=== PATIENT | male | born 1960 | race Caucasian/White ===

== ENCOUNTER → 2018-03-27 12:27 | Outpatient (CLI) | payer OTHER, SELFPAY | PROVIDERS: Family Provider Internal Medicine; PCP Internal Medicine | DX: Z23 Encounter for immunization (principal) | CPT/HCPCS: 90471; 90686 ==

== ENCOUNTER → 2019-05-07 16:12 | Outpatient (ROUT) | payer OTHER, SELFPAY ==
[2019-05-07 16:20] LABS: Add Manual Diff / Slide Review NO; Basophils Absolute Auto 100 /uL (0-100); Eosinophils Absolute Auto 300 /uL (0-450); Hematocrit 45.5 % (41-53); Hemoglobin 15.2 g/dL (13.5-17.5); Lymphocytes Absolute Auto 1800 /uL (1100-4500); Lymphocytes Percent Auto 31.5 % (25-40); Mean Corpuscular HGB Conc 33.3 % (30-36); Mean Corpuscular Hemoglobin 29.1 PG (26-34); Mean Corpuscular Volume 87.4 fL (80-100); Monocytes Absolute Auto 500 /uL (0-900); Monocytes Percent Auto 9.6 % (3-14); Neutrophils Absolute Auto 3000 /uL (1500-7000); Neutrophils Percent Auto 51.9 % (50-75); Platelet Count 207 X10^3/uL (150-400); Red Blood Cell Count 5.21 X10^6/uL (4.5-5.9); Red Cell Distribution Width 13.9 % (11.6-14.8); White Blood Cell Count 5.7 X10^3/uL (4.5-11.0)
[2019-05-07 16:38] LABS: Aspartate Aminotransferase 27 IU/L (17-59); BUN Creatinine Ratio 27.1 (6-22); Blood Urea Nitrogen 19 mg/dL (9-20); Calcium 9.2 mg/dL (8.4-10.2); Carbon Dioxide 28 mmol/L (22-32); Chloride 104 mmol/L (98-107); Cholesterol 179 mg/dL (140-199); Estimated Glomerular Filt Rate > 60.0 mL/min (>60); Glucose 89 mg/dL (80-110); HDL Cholesterol 54 mg/dL (40-60); HEMOLYSIS < 15 (0-50); LDL Cholesterol Calculated 112 mg/dL (<100); Potassium 3.9 mmol/L (3.4-5.1); Sodium 140 mmol/L (137-145); Triglycerides 63 mg/dL (35-150)
[2019-05-07 17:07] LABS: Prostate Specific Antigen 0.491 ng/mL (0.10-4.00)
[2019-05-07 17:09] LABS: TSH w/ Reflex to FT4 2.52 uIU/mL (0.47-4.68)
== END ==
PROVIDERS: Family Provider Internal Medicine; PCP Internal Medicine; Visit Provider Internal Medicine
DX: I10 Essential (primary) hypertension (principal); E78.2 Mixed hyperlipidemia; N40.0 Benign prostatic hyperplasia without lower urinary tract symptoms; R00.2 Palpitations
CPT/HCPCS: 80048; 80061; 84153; 84443; 84450; 85025

== ENCOUNTER → 2019-07-31 17:01 | Outpatient (CLI) | payer OTHER, SELFPAY ==
[2019-07-31 17:58] LABS: Magnesium 2.3 mg/dL (1.6-2.3)
[2019-08-06 13:09] LABS: Metanephrine, Free 47 pg/mL (< OR = 57); Normetanephrine, Free 111 pg/mL (< OR = 148)
== END ==
PROVIDERS: Family Provider Internal Medicine; PCP Internal Medicine; Visit Provider Internal Medicine Cardiovascular Disease
DX: R00.2 Palpitations (principal); I49.3 Ventricular premature depolarization; I49.1 Atrial premature depolarization; I10 Essential (primary) hypertension
CPT/HCPCS: 36415; 82088; 83735; 83835

== ENCOUNTER → 2020-04-24 11:39 | Outpatient (CLI) | payer OTHER, SELFPAY ==
[2020-04-25 14:39] LABS: COVID19 Sendout Not Detected (Not Detect)
== END ==
PROVIDERS: Family Provider Internal Medicine; PCP Internal Medicine; Visit Provider Physician Assistant
DX: Z01.812 Encounter for preprocedural laboratory examination (principal)
CPT/HCPCS: 87635

== ENCOUNTER 2020-04-27 12:09 | Day surgery (SDC) | payer OTHER, SELFPAY ==
[2020-04-27] MEDS: SODIUM CHLORIDE 0.9% 1,000 ML 200 ML IV (12:37)
[2020-04-27 12:38] VITALS: BP 145/95; PULSE 61; RESP 17; TEMP 36.8; O2SAT 98; BMI 22.6
--- NOTE | 2020-04-27 12:54 | PM.HP.1 ---
History of Present Illness History of Present Illness Chief complaint: [facility] [place] Patient History Medical History High cholesterol (Acute) Hypertension (Acute) Family & Social History Social History: household members spouse Tobacco & Substance use: Smoking Status Never smoker alcohol intake current alcohol intake frequency a few times a week Substance Use Type does not use Meds Home Medications and Allergies Home Medications Medication Instructions Recorded Confirmed Type aspirin 81 mg PO DAILY 04/27/20 04/27/20 History lisinopril 20 mg PO DAILY 04/27/20 04/27/20 History metoprolol succinate 25 mg PO DAILY 04/27/20 04/27/20 History pravastatin 20 mg PO DAILY 04/27/20 04/27/20 History zolpidem 5 mg PO BEDTIME PRN 04/27/20 04/27/20 History Review of Systems Review of Systems ROS: Yes All systems reviewed with the patient and are negative except as otherwise documented Exam Vital Signs (past 8 hours): - 04/27/20 12:38 Temperature 98.3 F Pulse Rate 61 Respiratory Rate 17 Blood Pressure 145/95 H Pulse Oximetry 98 Oxygen Delivery Method Room Air Narrative Exam Narrative: Awake alert and oriented x3, pupils equal round reactive to light, oropharynx clear, heart regular rate and rhythm, lungs clear to auscultation bilaterally, abdomen nontender and nondistended, extremities without edema, no gross neurologic deficits noted Assessment & Plan Assessment & Plan narrative: Colon cancer screening for colonoscopy COVID-19 COVID-19 status: Negative
[2020-04-27] MEDS: MIDAZOLAM 5 MG/5 ML VIAL IV (13:03)
[2020-04-27] MEDS: fentaNYL 250 MCG/5 ML INJ IV (13:04)
--- NOTE | 2020-04-27 13:19 | PM.OP.ENDO ---
Operative Date/Time/Diagnoses Date of procedure: 04/27/20 Procedure & Clinicians Study performed: Colonoscopy Moderate conscious sedation was administered by the endoscopy nurse and supervised by the endoscopist. The following parameters were monitored: Oxygen saturation, heart rate, blood pressure, and response to care. 5 mg midazolam and 100 mcg fentanyl given Same procedure as scheduled: Yes Indications: Colon cancer screening. Last colonoscopy was over 10 years ago. Procedure Notes Procedure in detail: Prior to the procedure, history and physical was performed, and patient medications and allergies were reviewed. Preprocedure nursing history and assessment was reviewed. Patient identification and proposed procedure were verified by the physician and nurse in the procedure room. The physical status of the patient was reassessed after the procedure. After informed consent was obtained including risks, benefits, and alternatives, the scope was passed under direct vision. Throughout the procedure, the patient's blood pressure, pulse, and oxygen saturations were monitored continuously. The colonoscope was introduced through the anus and advanced to the cecum as identified by the appendiceal orifice and ileocecal valve. The patient tolerated the procedure well. Bowel prep was deemed adequate to detect polyps greater than 5 mm. Perianal and digital rectal examination notable for hypertrophied anal papilla. Retroflexion in the rectum notable for grade 2 internal hemorrhoids. The remainder of the examined colon was normal appearing Impression: Hypertrophied anal papilla Internal hemorrhoids No specimens taken Sedation minutes: 15 Complications: other (EBL 0. No complications) Post-procedure Plan for aftercare: Repeat colonoscopy in 10 years for screening purposes Resume home medications Resume previous diet Patient has a contact number available for emergencies. The signs and symptoms of potential delayed complications were discussed with the patient. Return to normal activities tomorrow. Written discharge instructions were provided to the patient. Discharge home with escort
[2020-04-27 13:22] VITALS: BP 122/79; PULSE 60; RESP 13; TEMP 36.3; O2SAT 97
[2020-04-27 13:26] VITALS: BP 154/99; PULSE 79; RESP 17; TEMP 37.2; O2SAT 98
[2020-04-27 13:32] VITALS: BP 151/100; PULSE 67; RESP 11; TEMP 36.9; O2SAT 98
[2020-04-27 13:35] VITALS: BP 160/96; PULSE 71; RESP 12; TEMP 36.6; O2SAT 99
== END 2020-04-27 14:12 | disposition home or self-care (01) ==
PROVIDERS: Family Provider Internal Medicine; PCP Internal Medicine; Referring Provider Internal Medicine; Visit Provider Internal Medicine
PROC: 0DJD8ZZ Inspection of Lower Intestinal Tract, Via Natural or Artificial Opening Endoscopic (ICD-10-PCS; CPT 45378; principal; 2020-04-27 13:00)
DX: Z12.11 Encounter for screening for malignant neoplasm of colon (principal); K62.89 Other specified diseases of anus and rectum; K64.1 Second degree hemorrhoids; I10 Essential (primary) hypertension; E78.5 Hyperlipidemia, unspecified
CPT/HCPCS: G0121; J2250; J3010

== ENCOUNTER → 2020-05-25 15:29 | Outpatient (ROUT) | payer OTHER, SELFPAY ==
[2020-05-25 15:45] LABS: Aspartate Aminotransferase 26 IU/L (17-59); BUN Creatinine Ratio 24.7 (6-22); Blood Urea Nitrogen 19 mg/dL (9-20); Carbon Dioxide 30 mmol/L (22-32); Chloride 105 mmol/L (98-107); Cholesterol 186 mg/dL (140-199); Estimated Glomerular Filt Rate > 60.0 mL/min (>60); Glucose 96 mg/dL (80-110); HDL Cholesterol 63 mg/dL (40-60); HEMOLYSIS < 15 (0-50); LDL Cholesterol Calculated 107 mg/dL (<100); Potassium 3.5 mmol/L (3.4-5.1); Sodium 140 mmol/L (137-145); Triglycerides 78 mg/dL (35-150)
[2020-05-25 16:16] LABS: Prostate Specific Antigen 0.383 ng/mL (0.10-4.00)
== END ==
PROVIDERS: Family Provider Internal Medicine; PCP Internal Medicine; Visit Provider Internal Medicine
DX: I10 Essential (primary) hypertension (principal); E78.2 Mixed hyperlipidemia; N40.0 Benign prostatic hyperplasia without lower urinary tract symptoms
CPT/HCPCS: 80048; 80061; 84153; 84450

== ENCOUNTER → 2022-02-08 16:53 | Outpatient (CLI) | payer OTHER, SELFPAY ==
[2022-02-08 17:51] LABS: Hematocrit 42.6 % (41-53); Hemoglobin 14.2 g/dL (13.5-17.5); Mean Corpuscular HGB Conc 33.3 % (30-36); Mean Corpuscular Hemoglobin 28.3 PG (26-34); Mean Corpuscular Volume 85.1 fL (80-100); Platelet Count 180 X10^3/uL (150-400); Red Blood Cell Count 5.01 X10^6/uL (4.5-5.9); Red Cell Distribution Width 14.1 % (11.6-14.8); White Blood Cell Count 6.3 X10^3/uL (4.5-11.0)
[2022-02-08 18:04] LABS: Alanine Aminotransferase 21 IU/L (<50); Albumin 4.3 g/dL (3.5-5.0); Albumin Globulin Ratio 1.5 (1.0-2.8); Alkaline Phosphatase 50 U/L (38-126); Aspartate Aminotransferase 22 IU/L (17-59); BUN Creatinine Ratio 24.3 (6-22); Bilirubin Total 0.7 mg/dL (0.2-1.3); Blood Urea Nitrogen 18 mg/dL (9-20); Calcium 9.1 mg/dL (8.4-10.2); Carbon Dioxide 29 mmol/L (22-32); Chloride 102 mmol/L (98-107); Cholesterol 188 mg/dL (140-199); Estimated Glomerular Filt Rate > 60 mL/min (>60); Globulin 2.8 g/dL (1.7-4.1); Glucose 93 mg/dL (80-110); HDL Cholesterol 45 mg/dL (40-60); HEMOLYSIS < 15 (0-50); LDL Cholesterol Calculated 115 mg/dL (<100); Potassium 3.9 mmol/L (3.4-5.1); Sodium 137 mmol/L (137-145); Total Protein 7.1 g/dL (6.3-8.2); Triglycerides 140 mg/dL (35-150)
[2022-02-08 18:31] LABS: TSH w/ Reflex to FT4 1.83 uIU/mL (0.47-4.68)
[2022-02-08 18:32] LABS: Prostate Specific Antigen 0.652 ng/mL (0.10-4.00)
== END ==
PROVIDERS: Family Provider Internal Medicine; PCP Internal Medicine; Referring Provider Internal Medicine; Visit Provider Internal Medicine
DX: E78.2 Mixed hyperlipidemia (principal); I10 Essential (primary) hypertension; S76.391D Other specified injury of muscle, fascia and tendon of the posterior muscle group at thigh level, right thigh, subsequent encounter; Z00.00 Encounter for general adult medical examination without abnormal findings
CPT/HCPCS: 36415; 80053; 80061; 84153; 84443; 85027

== ENCOUNTER 2022-05-15 09:45 | Outpatient (RCR) | payer OTHER, SELFPAY ==
--- NOTE | 2022-01-04 18:21 | PT.OIE ---
Current Diagnoses Strain of muscle, fascia and tendon of the posterior muscle group at thigh level, right thigh, initial encounter (01/04/22) Past Medical History (Last Reviewed 04/27/20 @ 12:54 by Fab Vega MD) High cholesterol Hypertension Visit Care Team Role Provider Type Chicho Tolliver MD Family Provider Physician Primary Care Provider Specialty: Internal Medicine Address: [address] [place] [address], [id number] Email: [email or web address] Kolby Locke MD Attending Provider Non-Staff Referring Provider Specialty: Orthopedic Surgery Address: [facility], [address] [place] [address], [place], [address] Email: Physical Therapy Initial Evaluation PT-OP-A Visit Information Start: 12/29/21 19:43 Freq: Status: Active Protocol: Document 01/04/22 13:01 LRN (Rec: 01/04/22 18:15 LRN [id number]) Out-Patient Physical Therapy Visit Information Visit Information Visit Type Initial Evaluation Visit Start Time 13:02 Visit Stop Time 13:53 Total Visit Minutes 51 Visit Number 1 Evaluation Information Evaluation Date 01/04/22 Precautions Precautions PRECAUTIONS: Phase I: AVOID hip flexion coupled with knee ext (hamstring stretch) AND AVOID unsafe surfaces and environments. Protection of the R hamstring tendon at Ischial Tuberosity. Crutches 8 weeks (0-2 wks TTWBing) HTN not well controlled by meds (BP over 130-140/80-90) PT-OP-B Current Condition Start: 12/29/21 19:43 Freq: Status: Active Protocol: Document 01/04/22 13:01 LRN (Rec: 01/04/22 18:15 LRN [id number]) Current Condition History of Current Condition Onset Date 12/25/21 Current Complaints Impossible to get comfortable, not quite stable w/crutches. 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 Pt 10 days post op. Pt fall 09/05/21. Was carrying a heavy bin and slipped going up a step and both feet slipped off the step causing a lot of pain in the posterior thigh. Caused a lot of bruinsing and pain for 2 weeks after the fall. Kept walking for 6 weeks with his [place] and it didn't feel strong or stable; therefore sought further medical assessment. Was referred to [facility] for repair of tore R hamstring tendons off ischial tuberosity. 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 Prior Treatments and Tests Taking intermittently morphine /oxicodone, Tylenol, ASA for post-op blood thinning, Meloxicam as anti-inflammatory and Methylcarbonal (ms relaxor). Future Testing and Treatments Planned Next MD visit 01/09/22. Developmental History Developmental History Used crutches with knee replacement in 2013. Per pt, RLE PMH: meniscus tear - ACL in 1987, Meniscectomy in , Partial TKA 2008, TKA 2013. R Bunionectomy, R ankle tendon repair, 2 shoulder surgeries. Treatment Goals Patient/Caregiver Goals Pt goal is: Safely get to point to safely stand. Safely get through stage of healing to do strengthening at home of hamstrings. Balance standing with safety of hamstring tendon secure. Prior Functional Status Baseline Function- ADL's Needs Assist Baseline Function- Mobility Needs Assist Baseline Function- Gait Normal gait, no assistive device. 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 Baseline Function- Recreation/Hobbies 10 mile Hikes, coud drive 6 miles, general stiffness after driving long distances. Current Functional Impairments (Reported) Functional Limitations- ADL's Sitting tolerance - 1 minute before having to shift and move. Functional Limitations- Mobility/Gait Gait with crutches, NWBind RLE , wearing knee brace locked at 45 deg's flex. Functional Limitations- Work/School Retired. Functional Limitations- Recreation/ Not able to participate Hobbies Functional Limitations- Other Increased urination at nighttime (5 times per night). Personal Factors Other Personal Factors That May Effect Protocol limiting R Hip/knee Therapy/Recovery mobility & strengthening due to proper healing, R knee brace locked at 50 deg's flex for wks 0-6. Uncontrolled HBP PT-OP-C Subjective Start: 12/29/21 19:43 Freq: Status: Active Protocol: Document 01/04/22 13:01 LRN (Rec: 01/04/22 18:15 LRN [id number]) OP-PT Subjective Patient Comments Patient Comments Only comfortable position is L sidelie. States he is supposed to remove the brace to shower. Admits he has had LOB with crutches and has put his R leg onto the ground. Has not been educated in ex's to start. Patient Questionnaires Lower Extremity Functional Scale LEFS Score 2 LEFS Impairment 80 to 99% Impaired (Score 1-16 ) OP-PT Pain Assessment Pain Assessment Grid Paper Pain Assessment Grid Completed Yes Location Posterior R thigh Pain Location Details Posterior R thigh Intensity 9 Scale Used Numeric (0 - 10) Description Aching,Dull,Sharp Description- Other Moving wrong Frequency Constant Other Pain Aggravating Factors Pain increases in any position Pain Alleviating Factors Cold,Medication PT-OP-G Mobility & Gait Start: 12/29/21 19:43 Freq: Status: Active Protocol: Document 01/04/22 13:01 LRN (Rec: 01/04/22 18:21 LRN [id number]) OP Gait Assessment Gait Gait Assistance Required: Standby Assistance Distance (Feet) 100 Able to Maintain Weight Bearing Status Yes During Gait Assistive Devices Assistive Device Axillary Crutches Factors Limiting Gait Function Factors Limiting Gait Function Decreased Activity Tolerance, Incoordination,Poor Safety Awareness Comments Gait Comments Pt at time not very steady with gait but was able to self correct. PT-OP-K Range of Motion Start: 12/29/21 19:43 Freq: Status: Active Protocol: Document 01/04/22 13:01 LRN (Rec: 01/04/22 18:19 LRN [id number]) Knee Goniometric Range of Motion Knee Right Knee ROM WFL No Comments Deferred Left Knee ROM WFL Yes Patient Position Sitting Comments WNL PT-OP-M Strength Start: 12/29/21 19:43 Freq: Status: Active Protocol: Document 01/04/22 13:01 LRN (Rec: 01/04/22 18:19 LRN [id number]) Knee Strength Knee Manual Muscle Testing Right Comments Deferred per post op protocol Left Flexion (S2) 5 Normal Extension (L3) 5 Normal Ankle/Foot Strength Ankle and Foot Manual Muscle Testing Right Comments Deferred testing due to NWBing post op protocol for wks 0-2. Pt is able to do active ankle pumps; therefore strenght is at least 3/5. Left Comments Generally 5/5 PT-OP-Q Treatments Start: 12/29/21 19:43 Freq: Status: Active Protocol: Document 01/04/22 13:01 LRN (Rec: 01/04/22 18:15 LRN [id number]) Therapeutic Exercises Sidelying Exercises Ankle pumps Sidelying Exercise Name Ankle pumps, RLE in R knee brace locked at 50 deg's flexion Side right Reps/Minutes 15x 2 QS Sidelying Exercise Name QS w/R knee brace locked at 50 deg's flexion Side right Reps/Minutes 5 SH x 10 Gait Training Gait Activity Gait with crutches Description I/S pt in step to gait/NWBing RLE/crutches Device Used Axillary crutches Level of Assistance Independent Surface Level Treatment Focus Safety with gait Comments Recommended pt wear shoe more secure to the foot (not open heel crocks) Self-Care/Home Management Treatment Education Other Education Educated pt in Phase I protocol and educated pt in sidelie positioining for comfort with use of pillows to prop RLE. Discussed and reviewed RICE method for decreasing swelling . Reviewed precautions with pt and spouse. Educated pt in gait for safety , recommending pt do step to gait pattern for greater stability. Educated and discussed safety with gait in rain, and shoe wear of more secure shoes rather than open heel crocks. Activities Self-Care/Home Management Activities I/S pt in QS ex wearing R knee brace to prevent lengthening of hamstrings. PT-OP-T Assessment and Plan Start: 12/29/21 19:43 Freq: Status: Active Protocol: Document 01/04/22 13:01 LRN (Rec: 01/04/22 18:15 LRN [id number]) Physical Therapy Assessment Rehab Potential Rehabilitation Potential Good Evaluation Complexity Number of Personal Factors/Comorbidities 1-2 Number of Body Systems Impaired 4 or More Clinical Presentation at Evaluation Evolving Impairments Impairments Activity Tolerance,Balance, Edema,Functional Activities, Functional Mobility,Gait,Pain, ROM,Soft Tissue Mobility, Strength,Transfers Other Impairments WBing and movement restrictions/precautions per MD protocol. Goals Four Impairment R Hamstring weakness Impairment Protocol: PROM of knee flexion only (strength 0/5). Short Term Goal (STG) Phase I: PROM R knee, no hip flexion during knee extension. Phase II: Pt able to tolerate beginning hamstring strengthening (avoiding lengthening of hamstring position (hip flex w/knee ext) ). Pt able to perform standing hip ext (knee straight), and preeti/conc strengthening of hamstrings on HEP per protocol safely for pt to feel safe in standing. STG Duration 03/29/22 Autocutter Goal (LTG) Pt able to strengthen R hamstring in a lengthened hamstring position (per protocol) s/p wks 12-16 and will be able to b-alance standing with safety of hamstring tendon secure. LTG Duration 04/26/22 Three Impairment Decreased Standing due to limited WBing in RLE Impairment Protocol limits standing to NWBing wks 0-2, TTWBing 2-6 wks. Short Term Goal (STG) Phase I: Pt will be able to walk with crutches and TTWBing through s/p wks 1-6. STG Duration 02/15/22 Snf Goal (LTG) Per protocol: Phase II (wks 5 -12) Normal gait, Functional mvmts w/o unloading the RLE while demonstrating good control. SLS greater than 15 secs. Normal 5/5 R hamstring strength w/knee in 90 deg's flexion at least 4/5. Pt will be able to safely stand. LTG Duration 04/26/22 Two Impairment Decreased R knee PROM/AROM Impairment s/p wks 0-6: No active knee ROM Passive R knee flexion limited by brace to 50 deg's flexion. Per protocol: No active R knee ext with flexion of R hip. Short Term Goal (STG) Improve R knee PROM (without hip flex) per rehab protocol. STG Duration 02/15/22 Snf Goal (LTG) Phase II for R knee: R knee 0 -30 deg's. LTG Duration 04/26/22 One Impairment Lacks Self care Impairment Pt under adherence to protocol Short Term Goal (STG) Pt has good understanding phase I-II of self fpc program per rehab protocol. STG Duration 03/29/22 Snf Goal (LTG) Pt has good understanding of phase III self fpc program rehab protocol. LTG Duration 04/26/22 Assessment Summary Assessment Pt is a 61 yo male ~2 weeks s/ p surgical R hamstring tendon repair at Ischial Tuberosity. Post op wk 3-4, pt is allowed pool walking (w/o hip flexion coupled with knee ext): Hip AB, ext and balance exercises, but pt will not be able to participate in pool therapy until after incision is well healed, to avoid dehissing of scar. The pt presents with severe functional limitations per Lower Extremity Funcional Score questionaire as expected (score was 2 = 80-99% impairment for scores 1-16). The pt ambulates into therapy with crutches and a swing through gait holding RLE in NWBing position. The pt was taking somewhat large steps and showed some instability with gait. Further gait training needed for safety since the pt did report a couple times partial LOB and having to place his RLE down to balance. The wears a R knee brace locked at 50 deg's. PROM to the R knee was deferred due to the pt's report of sever posterior thigh pain in any position. His most comfortable position was in L sidelie. Pt will benefit from physical therapy for education in positioning for greater comfort with use of pillows, gait training for safe gait. Clarification needed for WBing status during gait (NBWing vs TTWBing after week 2). Modalities ( ultrasound, ice/heat) for pain management and STM in areas other than R Hamstring, except for superficial lymph massage in R thigh. General aerobic conditioning of UE's until pt cleared for exercise per protocol. Physical Therapy Plan Frequency and Duration Frequency of Treatment 2x/Week Plan of Care Start Date 01/04/22 Plan of Care End Date 04/26/22 Therapeutic Interventions Therapeutic Interventions Aquatic Therapy,Balance Training,Gait Training,Home Exercise Program,Manual Therapy,Neuromuscular Re- education,Patient/Caregiver Education,Self-Care/Home Management,Soft Tissue Mobilization,Therapeutic Exercises Modalities Cold Pack/Ice Massage, Ultrasound Next Visit Focus/Plan Next Note Type Treatment Note Next Visit Plan Follow R Hamstring repair per protocol of Dr. Kolby Locke (see notes section in documentation system). PRECAUTIONS: R knee brace locked at 50 deg's flexion. AVOID hip flexion coupled with knee ext (hamstring stretch) & AVOID unsafe surfaces and environments. 0-2 weeks: NWBing RLE. 2-6 wk: TTWBing (per online protocol) 1-6 weeks: start scar mobs, cont in knee brace: QS, ankle pumps, abdominal isometrics. Knee to remain in brace locked at 50 deg's flex (no ext mvmt allowed). PROM with no hip flex during knee ext. Modalities of pain, possible lymph massage. Post op wk 3-4 pt is allowed pool walking (w/o hip flexion coupled with knee ext): Hip AB, ext and Phase I: wks 1-6. Protective phase. Phase II: wks 6-12. Brace hinge 0-30 deg's, wean off crutches and normalize gait, good control of mvmt including step up/down, squat, parital lunge (<60 deg's knee flex). Precautions: avoid dynamic stretching, no impact or running. Phase III: Usually 3 months after surgery, see protocol.
--- NOTE | 2022-01-11 18:56 | PT.OTN ---
Current Diagnoses Strain of muscle, fascia and tendon of the posterior muscle group at thigh level, right thigh, initial encounter (01/11/22) Physical Therapy Treatment Note PT-OP-A Visit Information Start: 12/29/21 19:43 Freq: Status: Active Protocol: Document 01/11/22 13:01 [facility] (Rec: 01/11/22 18:56 [facility] [id number]) Out-Patient Physical Therapy Visit Information Visit Information Visit Type Treatment Note Visit Start Time 13:01 Visit Stop Time 13:54 Total Visit Minutes 53 Visit Number 2 Number of DISTRIBUTION SYSTEMS SERVICEPERSON Visits 0 PT-OP-B Current Condition Start: 12/29/21 19:43 Freq: Status: Active Protocol: Document 01/04/22 13:01 [facility] (Rec: 01/04/22 18:15 [facility] [id number]) Current Condition History of Current Condition Onset Date 12/25/21 Current Complaints Impossible to get comfortable, not quite stable w/crutches. 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 Pt 10 days post op. Pt fall 09/05/21. Was carrying a heavy bin and slipped going up a step and both feet slipped off the step causing a lot of pain in the posterior thigh. Caused a lot of bruinsing and pain for 2 weeks after the fall. Kept walking for 6 weeks with his [place] and it didn't feel strong or stable; therefore sought further medical assessment. Was referred to [place] for repair of tore R hamstring tendons off ischial tuberosity. 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 Prior Treatments and Tests Taking intermittently morphine /oxicodone, Tylenol, ASA for post-op blood thinning, Meloxicam as anti-inflammatory and Methylcarbonal (ms relaxor). Future Testing and Treatments Planned Next MD visit 01/09/22. Developmental History Developmental History Used crutches with knee replacement in 2013. Per pt, RLE PMH: meniscus tear - ACL in 1987, Meniscectomy in , Partial TKA 2008, TKA 2013. R Bunionectomy, R ankle tendon repair, 2 shoulder surgeries. Treatment Goals Patient/Caregiver Goals Pt goal is: Safely get to point to safely stand. Safely get through stage of healing to do strengthening at home of hamstrings. Balance standing with safety of hamstring tendon secure. Prior Functional Status Baseline Function- ADL's Needs Assist Baseline Function- Mobility Needs Assist Baseline Function- Gait Normal gait, no assistive device. 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 Baseline Function- Recreation/Hobbies 10 mile Hikes, coud drive 6 miles, general stiffness after driving long distances. Current Functional Impairments (Reported) Functional Limitations- ADL's Sitting tolerance - 1 minute before having to shift and move. Functional Limitations- Mobility/Gait Gait with crutches, NWBind RLE , wearing knee brace locked at 45 deg's flex. Functional Limitations- Work/School Retired. Functional Limitations- Recreation/ Not able to participate Hobbies Functional Limitations- Other Increased urination at nighttime (5 times per night). Personal Factors Other Personal Factors That May Effect Protocol limiting R Hip/knee Therapy/Recovery mobility & strengthening due to proper healing, R knee brace locked at 50 deg's flex for wks 0-6. Uncontrolled HBP PT-OP-C Subjective Start: 12/29/21 19:43 Freq: Status: Active Protocol: Document 01/11/22 13:01 [facility] (Rec: 01/11/22 18:56 [facility] [id number]) OP-PT Subjective Patient Comments Patient Comments pt reports he saw the MD and he was instructed to do TTWB w /no more than 20% WB PT-OP-G Mobility & Gait Start: 12/29/21 19:43 Freq: Status: Active Protocol: Document 01/04/22 13:01 [facility] (Rec: 01/04/22 18:21 [facility] [id number]) OP Gait Assessment Gait Gait Assistance Required: Standby Assistance Distance (Feet) 100 Able to Maintain Weight Bearing Status Yes During Gait Assistive Devices Assistive Device Axillary Crutches Factors Limiting Gait Function Factors Limiting Gait Function Decreased Activity Tolerance, Incoordination,Poor Safety Awareness Comments Gait Comments Pt at time not very steady with gait but was able to self correct. PT-OP-K Range of Motion Start: 12/29/21 19:43 Freq: Status: Active Protocol: Document 01/04/22 13:01 [facility] (Rec: 01/04/22 18:19 [facility] [id number]) Knee Goniometric Range of Motion Knee Right Knee ROM WFL No Comments Deferred Left Knee ROM WFL Yes Patient Position Sitting Comments WNL PT-OP-M Strength Start: 12/29/21 19:43 Freq: Status: Active Protocol: Document 01/04/22 13:01 [facility] (Rec: 01/04/22 18:19 [facility] [id number]) Knee Strength Knee Manual Muscle Testing Right Comments Deferred per post op protocol Left Flexion (S2) 5 Normal Extension (L3) 5 Normal Ankle/Foot Strength Ankle and Foot Manual Muscle Testing Right Comments Deferred testing due to NWBing post op protocol for wks 0-2. Pt is able to do active ankle pumps; therefore strenght is at least 3/5. Left Comments Generally 5/5 PT-OP-Q Treatments Start: 12/29/21 19:43 Freq: Status: Active Protocol: Document 01/11/22 13:01 [facility] (Rec: 01/11/22 18:56 [facility] [id number]) Therapeutic Exercises Sidelying Exercises QS Sidelying Exercise Name QS w/R knee brace locked at 50 deg's flexion Side right Reps/Minutes 5 SH x 10 Sitting Exercises sit back Sitting Exercise Name cues for spinal alignment & press through LLE only Side bilateral Reps/Minutes 15 rotation Sitting Exercise Name trunk rotation w/cues for back in neutral -progressed to slight hip hinge Side bilateral Equipment Used L1 2 strands Reps/Minutes [address] Side right Equipment Used lvl 1 Reps/Minutes 15 ea Comments max cues for ankle only Gait Training Gait Activity stairs Comments TTWB training up/down stairs step to w/heavy crutch use to dec WB into RLE x1 on training stairs Gait with crutches Device Used Axillary crutches Surface Level Treatment Focus Safety with gait& WB Comments Pt now toe touch up to 20% per pt report from MD appt yesterday; worked on smaller step lengths and worked on feeling what toe touch resistriction feels like on scale w/cues re: de wtb in RLE . Worked on amb in clinic about 300ft w/cues for posture and smaller step lengths and working on making sure he is pressing strongly through crutches to dec WB in LE. crutches adjusted taller as pt had crutches set up for his height when he was slouched fwd. Self-Care/Home Management Treatment Education Other Education reviewd importance of use of a shoe with heel support to dec likelihood of falling, edu re : HEP and handout to pt, Edu to pt re: what TTWB means & avoiding anything further than the 20% MD noted he was cleared to do. PT-OP-T Assessment and Plan Start: 12/29/21 19:43 Freq: Status: Active Protocol: Document 01/11/22 13:01 [facility] (Rec: 01/11/22 18:56 [facility] [id number]) Physical Therapy Assessment Goals Four Impairment R Hamstring weakness Impairment Protocol: PROM of knee flexion only (strength 0/5). Short Term Goal (STG) Phase I: PROM R knee, no hip flexion during knee extension. Phase II: Pt able to tolerate beginning hamstring strengthening (avoiding lengthening of hamstring position (hip flex w/knee ext) ). Pt able to perform standing hip ext (knee straight), and preeti/conc strengthening of hamstrings on HEP per protocol safely for pt to feel safe in standing. STG Duration 03/29/22 [facility] Goal (LTG) Pt able to strengthen R hamstring in a lengthened hamstring position (per protocol) s/p wks 12-16 and will be able to b-alance standing with safety of hamstring tendon secure. LTG Duration 04/26/22 Three Impairment Decreased Standing due to limited WBing in RLE Impairment Protocol limits standing to NWBing wks 0-2, TTWBing 2-6 wks. Short Term Goal (STG) Phase I: Pt will be able to walk with crutches and TTWBing through s/p wks 1-6. STG Duration 02/15/22 Technical Services Specialist Goal (LTG) Per protocol: Phase II (wks 5 -12) Normal gait, Functional mvmts w/o unloading the RLE while demonstrating good control. SLS greater than 15 secs. Normal 5/5 R hamstring strength w/knee in 90 deg's flexion at least 4/5. Pt will be able to safely stand. LTG Duration 04/26/22 Two Impairment Decreased R knee PROM/AROM Impairment s/p wks 0-6: No active knee ROM Passive R knee flexion limited by brace to 50 deg's flexion. Per protocol: No active R knee ext with flexion of R hip. Short Term Goal (STG) Improve R knee PROM (without hip flex) per rehab protocol. STG Duration 02/15/22 Fpc Goal (LTG) Phase II for R knee: R knee 0 -30 deg's. LTG Duration 04/26/22 One Impairment Lacks Self care Impairment Pt under adherence to protocol Short Term Goal (STG) Pt has good understanding phase I-II of self skilled nursing program per rehab protocol. STG Duration 03/29/22 Technical Services Specialist Goal (LTG) Pt has good understanding of phase III self skilled nursing program rehab protocol. LTG Duration 04/26/22 Assessment Summary Assessment Pt had no inc pain w/exercises and was cued to avoid HS engagement. He did better w/ gait after a lot of time spent on cueing for posture, smaller step length and w/use of scale for pt to see how little wt he can put through his LE. Physical Therapy Plan Frequency and Duration Frequency of Treatment 2x/Week Plan of Care Start Date 01/04/22 Plan of Care End Date 04/26/22 Next Visit Focus/Plan Next Note Type Treatment Note Next Visit Plan Review exercises, try further core engagement exercises, review gait for TTWB no more than 20% Follow R Hamstring repair per protocol of Dr. Kolby Locke (see notes section in documentation system). PRECAUTIONS: R knee brace locked at 50 deg's flexion. AVOID hip flexion coupled with knee ext (hamstring stretch) & AVOID unsafe surfaces and environments. 0-2 weeks: NWBing RLE. 2-6 wk: TTWBing (per online protocol) 1-6 weeks: start scar mobs, cont in knee brace: QS, ankle pumps, abdominal isometrics. Knee to remain in brace locked at 50 deg's flex (no ext mvmt allowed). PROM with no hip flex during knee ext. Modalities of pain, possible lymph massage. Post op wk 3-4 pt is allowed pool walking (w/o hip flexion coupled with knee ext): Hip AB, ext and Phase I: wks 1-6. Protective phase. Phase II: wks 6-12. Brace hinge 0-30 deg's, wean off crutches and normalize gait, good control of mvmt including step up/down, squat, parital lunge (<60 deg's knee flex). Precautions: avoid dynamic stretching, no impact or running. Phase III: Usually 3 months after surgery, see protocol.
--- NOTE | 2022-01-15 17:51 | PT.OTN ---
Current Diagnoses Strain of muscle, fascia and tendon of the posterior muscle group at thigh level, right thigh, initial encounter (01/15/22) Physical Therapy Treatment Note PT-OP-A Visit Information Start: 12/29/21 19:43 Freq: Status: Active Protocol: Document 01/15/22 15:21 [facility] (Rec: 01/15/22 17:50 [facility] [id number]) Out-Patient Physical Therapy Visit Information Visit Information Visit Type Treatment Note Visit Start Time 13:26 Visit Stop Time 14:20 Total Visit Minutes 54 Visit Number 3 Number of CORRECTIONAL MAINTENANCE TECHNICIAN Visits 1 Precautions Precautions PRECAUTIONS: Phase I: AVOID hip flexion coupled with knee ext (hamstring stretch) AND AVOID unsafe surfaces and environments. Protection of the R hamstring tendon at Ischial Tuberosity. Crutches 8 weeks (0-2 wks TTWBing) HTN not well controlled by meds (BP over 130-140/80-90) PT-OP-B Current Condition Start: 12/29/21 19:43 Freq: Status: Active Protocol: Document 01/04/22 13:01 [facility] (Rec: 01/04/22 18:15 [facility] [id number]) Current Condition History of Current Condition Onset Date 12/25/21 Current Complaints Impossible to get comfortable, not quite stable w/crutches. 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 Pt 10 days post op. Pt fall 09/05/21. Was carrying a heavy bin and slipped going up a step and both feet slipped off the step causing a lot of pain in the posterior thigh. Caused a lot of bruinsing and pain for 2 weeks after the fall. Kept walking for 6 weeks with his [place] and it didn't feel strong or stable; therefore sought further medical assessment. Was referred to [place] for repair of tore R hamstring tendons off ischial tuberosity. 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 Prior Treatments and Tests Taking intermittently morphine /oxicodone, Tylenol, ASA for post-op blood thinning, Meloxicam as anti-inflammatory and Methylcarbonal (ms relaxor). Future Testing and Treatments Planned Next MD visit 01/09/22. Developmental History Developmental History Used crutches with knee replacement in 2013. Per pt, RLE PMH: meniscus tear - ACL in 1987, Meniscectomy in , Partial TKA 2008, TKA 2013. R Bunionectomy, R ankle tendon repair, 2 shoulder surgeries. Treatment Goals Patient/Caregiver Goals Pt goal is: Safely get to point to safely stand. Safely get through stage of healing to do strengthening at home of hamstrings. Balance standing with safety of hamstring tendon secure. Prior Functional Status Baseline Function- ADL's Needs Assist Baseline Function- Mobility Needs Assist Baseline Function- Gait Normal gait, no assistive device. 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 Baseline Function- Recreation/Hobbies 10 mile Hikes, coud drive 6 miles, general stiffness after driving long distances. Current Functional Impairments (Reported) Functional Limitations- ADL's Sitting tolerance - 1 minute before having to shift and move. Functional Limitations- Mobility/Gait Gait with crutches, NWBind RLE , wearing knee brace locked at 45 deg's flex. Functional Limitations- Work/School Retired. Functional Limitations- Recreation/ Not able to participate Hobbies Functional Limitations- Other Increased urination at nighttime (5 times per night). Personal Factors Other Personal Factors That May Effect Protocol limiting R Hip/knee Therapy/Recovery mobility & strengthening due to proper healing, R knee brace locked at 50 deg's flex for wks 0-6. Uncontrolled HBP PT-OP-C Subjective Start: 12/29/21 19:43 Freq: Status: Active Protocol: Document 01/15/22 15:21 [facility] (Rec: 01/15/22 17:50 [facility] [id number]) OP-PT Subjective Patient Comments Patient Comments Pt reports he went for a 1- block walk 3 days ago and it was terrible. He had to take a pain pill afterwards and didn't do his exercises due to HS pain for a few days. PT-OP-G Mobility & Gait Start: 12/29/21 19:43 Freq: Status: Active Protocol: Document 01/04/22 13:01 [facility] (Rec: 01/04/22 18:21 [facility] [id number]) OP Gait Assessment Gait Gait Assistance Required: Standby Assistance Distance (Feet) 100 Able to Maintain Weight Bearing Status Yes During Gait Assistive Devices Assistive Device Axillary Crutches Factors Limiting Gait Function Factors Limiting Gait Function Decreased Activity Tolerance, Incoordination,Poor Safety Awareness Comments Gait Comments Pt at time not very steady with gait but was able to self correct. PT-OP-K Range of Motion Start: 12/29/21 19:43 Freq: Status: Active Protocol: Document 01/04/22 13:01 [facility] (Rec: 01/04/22 18:19 [facility] [id number]) Knee Goniometric Range of Motion Knee Right Knee ROM WFL No Comments Deferred Left Knee ROM WFL Yes Patient Position Sitting Comments WNL PT-OP-M Strength Start: 12/29/21 19:43 Freq: Status: Active Protocol: Document 01/04/22 13:01 [facility] (Rec: 01/04/22 18:19 [facility] [id number]) Knee Strength Knee Manual Muscle Testing Right Comments Deferred per post op protocol Left Flexion (S2) 5 Normal Extension (L3) 5 Normal Ankle/Foot Strength Ankle and Foot Manual Muscle Testing Right Comments Deferred testing due to NWBing post op protocol for wks 0-2. Pt is able to do active ankle pumps; therefore strenght is at least 3/5. Left Comments Generally 5/5 PT-OP-Q Treatments Start: 12/29/21 19:43 Freq: Status: Active Protocol: Document 01/15/22 15:21 [facility] (Rec: 01/15/22 17:50 [facility] [id number]) Therapeutic Exercises Sidelying Exercises Ankle pumps Sidelying Exercise Name Ankle pumps, RLE in R knee brace locked at 50 deg's flexion med Side right Reps/Minutes 15x 2 QS Sidelying Exercise Name QS w/R knee brace locked at 50 deg's flexion med Side right Reps/Minutes 5 SH x 10 Comments HS puling w/ conc. QS- resolved when mod. to Iso w/ man. resist at ankle Sitting Exercises sit back Sitting Exercise Name cues for core engagement, spinal alignment & press through LLE only Side bilateral Reps/Minutes 15 rotation Sitting Exercise Name trunk rotation w/cues for core engagement and back in neutral Side bilateral Equipment Used L1 2 strands Reps/Minutes [address] Side right Equipment Used lvl 1 Reps/Minutes 15 ea Comments max cues for ankle only slower pacing Gait Training Gait Activity Gait with crutches Device Used Axillary crutches Surface Level Distance/Duration 50 ft Treatment Focus Safety with gait & TTWB Comments Pt now toe touch up to 20% per pt report from MD appt 7/6; Reassessed feeling what toe touch resistriction feels like on scale and pt is doing less than 20% WB. Worked on amb in clinic about 50ft w/cues for posture and smaller step lengths and working on making sure he is pressing strongly through crutches to dec WB in LE. Self-Care/Home Management Treatment Education Patient Education Home Exercise Program,Joint Protection,Posture Other Education Reviewed full HEP in detail w/ patient and caregiver and provided caregiver education for assisting with HEP. Discussed importance of core engagement with trunk rotation and sit backs from HEP. Noted Brace has different settings Med vs Lat - see assessment. PT-OP-T Assessment and Plan Start: 12/29/21 19:43 Freq: Status: Active Protocol: Document 01/15/22 15:21 [facility] (Rec: 01/15/22 17:50 [facility] [id number]) Physical Therapy Assessment Goals Four Impairment R Hamstring weakness Impairment Protocol: PROM of knee flexion only (strength 0/5). Short Term Goal (STG) Phase I: PROM R knee, no hip flexion during knee extension. Phase II: Pt able to tolerate beginning hamstring strengthening (avoiding lengthening of hamstring position (hip flex w/knee ext) ). Pt able to perform standing hip ext (knee straight), and preeti/conc strengthening of hamstrings on HEP per protocol safely for pt to feel safe in standing. STG Duration 03/29/22 Collarette Separator Goal (LTG) Pt able to strengthen R hamstring in a lengthened hamstring position (per protocol) s/p wks 12-16 and will be able to b-alance standing with safety of hamstring tendon secure. LTG Duration 04/26/22 Three Impairment Decreased Standing due to limited WBing in RLE Impairment Protocol limits standing to NWBing wks 0-2, TTWBing 2-6 wks. Short Term Goal (STG) Phase I: Pt will be able to walk with crutches and TTWBing through s/p wks 1-6. STG Duration 02/15/22 Collarette Separator Goal (LTG) Per protocol: Phase II (wks 5 -12) Normal gait, Functional mvmts w/o unloading the RLE while demonstrating good control. SLS greater than 15 secs. Normal 5/5 R hamstring strength w/knee in 90 deg's flexion at least 4/5. Pt will be able to safely stand. LTG Duration 04/26/22 Two Impairment Decreased R knee PROM/AROM Impairment s/p wks 0-6: No active knee ROM Passive R knee flexion limited by brace to 50 deg's flexion. Per protocol: No active R knee ext with flexion of R hip. Short Term Goal (STG) Improve R knee PROM (without hip flex) per rehab protocol. STG Duration 02/15/22 Collarette Separator Goal (LTG) Phase II for R knee: R knee 0 -30 deg's. LTG Duration 04/26/22 One Impairment Lacks Self care Impairment Pt under adherence to protocol Short Term Goal (STG) Pt has good understanding phase I-II of self snf program per rehab protocol. STG Duration 03/29/22 Nursing Home Goal (LTG) Pt has good understanding of phase III self snf program rehab protocol. LTG Duration 04/26/22 Assessment Summary Assessment This treatment session was largely spent reviewing HEP w/ pt and caregiver, reviewing posture and gait w/ crutches, and educating how to engage core. Reassessed pt's sense of TTWB (20%/40 lbs) w/ scale and pt reports he has been doing less than TTWB. Pt continues to need cues for upright posture, especially with gait with crutches. Brace noted to be locked at different settings: Medial F: 50 deg, E: 50 deg, Lateral F: 60 deg E: 30 deg. Caregiver called surgeon's office to clarify flex/ext settings and will advise at 01/18 PT apt. Physical Therapy Plan Next Visit Focus/Plan Next Note Type Treatment Note Next Visit Plan Reassess with pt R knee brace flex/ext settings. Continue gait training w/ crutches and progress core engagement exercises as per POC. POC: Review exercises, try further core engagement exercises, review gait for TTWB no more than 20% Follow R Hamstring repair per protocol of Dr. Kolby Locke (see notes section in documentation system). PRECAUTIONS: R knee brace locked at 50 deg's flexion. AVOID hip flexion coupled with knee ext (hamstring stretch) & AVOID unsafe surfaces and environments. 0-2 weeks: NWBing RLE. 2-6 wk: TTWBing (per online protocol) 1-6 weeks: start scar mobs, cont in knee brace: QS, ankle pumps, abdominal isometrics. Knee to remain in brace locked at 50 deg's flex (no ext mvmt allowed). PROM with no hip flex during knee ext. Modalities of pain, possible lymph massage. Post op wk 3-4 pt is allowed pool walking (w/o hip flexion coupled with knee ext): Hip AB, ext and Phase I: wks 1-6. Protective phase. Phase II: wks 6-12. Brace hinge 0-30 deg's, wean off crutches and normalize gait, good control of mvmt including step up/down, squat, parital lunge (<60 deg's knee flex). Precautions: avoid dynamic stretching, no impact or running. Phase III: Usually 3 months after surgery, see protocol.
--- NOTE | 2022-01-18 17:27 | PT.OTN ---
Current Diagnoses Strain of muscle, fascia and tendon of the posterior muscle group at thigh level, right thigh, initial encounter (01/18/22) Physical Therapy Treatment Note PT-OP-A Visit Information Start: 12/29/21 19:43 Freq: Status: Active Protocol: Document 01/18/22 13:45 AMH (Rec: 01/18/22 17:18 AMH [id number]) Out-Patient Physical Therapy Visit Information Visit Information Visit Type Treatment Note Visit Start Time 13:45 Visit Stop Time 14:30 Total Visit Minutes 45 Visit Number 4 Number of GLASSWARE VERIFIER Visits 0 PT-OP-B Current Condition Start: 12/29/21 19:43 Freq: Status: Active Protocol: Document 01/04/22 13:01 LRN (Rec: 01/04/22 18:15 LRN [id number]) Current Condition History of Current Condition Onset Date 12/25/21 Current Complaints Impossible to get comfortable, not quite stable w/crutches. 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 Pt 10 days post op. Pt fall 09/05/21. Was carrying a heavy bin and slipped going up a step and both feet slipped off the step causing a lot of pain in the posterior thigh. Caused a lot of bruinsing and pain for 2 weeks after the fall. Kept walking for 6 weeks with his [place] and it didn't feel strong or stable; therefore sought further medical assessment. Was referred to [facility] for repair of tore R hamstring tendons off ischial tuberosity. 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 Prior Treatments and Tests Taking intermittently morphine /oxicodone, Tylenol, ASA for post-op blood thinning, Meloxicam as anti-inflammatory and Methylcarbonal (ms relaxor). Future Testing and Treatments Planned Next MD visit 01/09/22. Developmental History Developmental History Used crutches with knee replacement in 2013. Per pt, RLE PMH: meniscus tear - ACL in 1987, Meniscectomy in , Partial TKA 2008, TKA 2013. R Bunionectomy, R ankle tendon repair, 2 shoulder surgeries. Treatment Goals Patient/Caregiver Goals Pt goal is: Safely get to point to safely stand. Safely get through stage of healing to do strengthening at home of hamstrings. Balance standing with safety of hamstring tendon secure. Prior Functional Status Baseline Function- ADL's Needs Assist Baseline Function- Mobility Needs Assist Baseline Function- Gait Normal gait, no assistive device. 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 Baseline Function- Recreation/Hobbies 10 mile Hikes, coud drive 6 miles, general stiffness after driving long distances. Current Functional Impairments (Reported) Functional Limitations- ADL's Sitting tolerance - 1 minute before having to shift and move. Functional Limitations- Mobility/Gait Gait with crutches, NWBind RLE , wearing knee brace locked at 45 deg's flex. Functional Limitations- Work/School Retired. Functional Limitations- Recreation/ Not able to participate Hobbies Functional Limitations- Other Increased urination at nighttime (5 times per night). Personal Factors Other Personal Factors That May Effect Protocol limiting R Hip/knee Therapy/Recovery mobility & strengthening due to proper healing, R knee brace locked at 50 deg's flex for wks 0-6. Uncontrolled HBP PT-OP-C Subjective Start: 12/29/21 19:43 Freq: Status: Active Protocol: Document 01/18/22 13:47 AMH (Rec: 01/18/22 14:40 AMH [id number]) OP-PT Subjective Patient Comments Patient Comments trying to be really careful on stairs, he hasn't been taking his pain meds, he sees his MD February 15 PT-OP-G Mobility & Gait Start: 12/29/21 19:43 Freq: Status: Active Protocol: Document 01/04/22 13:01 LRN (Rec: 01/04/22 18:21 LRN [id number]) OP Gait Assessment Gait Gait Assistance Required: Standby Assistance Distance (Feet) 100 Able to Maintain Weight Bearing Status Yes During Gait Assistive Devices Assistive Device Axillary Crutches Factors Limiting Gait Function Factors Limiting Gait Function Decreased Activity Tolerance, Incoordination,Poor Safety Awareness Comments Gait Comments Pt at time not very steady with gait but was able to self correct. PT-OP-K Range of Motion Start: 12/29/21 19:43 Freq: Status: Active Protocol: Document 01/04/22 13:01 LRN (Rec: 01/04/22 18:19 LRN [id number]) Knee Goniometric Range of Motion Knee Right Knee ROM WFL No Comments Deferred Left Knee ROM WFL Yes Patient Position Sitting Comments WNL PT-OP-M Strength Start: 12/29/21 19:43 Freq: Status: Active Protocol: Document 01/04/22 13:01 LRN (Rec: 01/04/22 18:19 LRN [id number]) Knee Strength Knee Manual Muscle Testing Right Comments Deferred per post op protocol Left Flexion (S2) 5 Normal Extension (L3) 5 Normal Ankle/Foot Strength Ankle and Foot Manual Muscle Testing Right Comments Deferred testing due to NWBing post op protocol for wks 0-2. Pt is able to do active ankle pumps; therefore strenght is at least 3/5. Left Comments Generally 5/5 PT-OP-Q Treatments Start: 12/29/21 19:43 Freq: Status: Active Protocol: Document 01/18/22 13:47 AMH (Rec: 01/18/22 14:40 AMH [id number]) Therapeutic Exercises Sidelying Exercises Ankle pumps Sidelying Exercise Name tried in supine today with pillow under knee Side right Reps/Minutes 15x 2 QS Sidelying Exercise Name QS w/R knee brace locked at 30 deg's flexion med Side right Reps/Minutes 5 SH x 10 Comments tried in supine today and pt did not c/o any HS pain, pillow under knee Sitting Exercises T exercise Side bilateral Equipment Used level 2 theraband Reps/Minutes 3 x 10 Comments cues for core stabilization seated rows Side bilateral Equipment Used level 2 Reps/Minutes 3 x 10 reps Comments cues for core activation sit back Sitting Exercise Name cues for core engagement, spinal alignment & press through LLE only Side bilateral Reps/Minutes [address] Side right Equipment Used lvl 2 Reps/Minutes 15 ea Comments cues for ankle only slower pacing Gait Training Gait Activity stairs Comments TTWB training up/down stairs step with crutches and pt able to maintain TTWB PT-OP-T Assessment and Plan Start: 12/29/21 19:43 Freq: Status: Active Protocol: Document 01/18/22 13:45 AMH (Rec: 01/18/22 17:26 AMH [id number]) Physical Therapy Assessment Assessment Summary Assessment pt seemed to have better pain control today, he was able to tolerate supine quad sets with pillow under knee. He also tolerated his seated ankle theraband ex well. Added UE rows and t ex in sitting for increased core activation. He needed reminders to keep his wb at 20% TTWB Physical Therapy Plan Frequency and Duration Frequency of Treatment 2x/Week Plan of Care Start Date 01/04/22 Plan of Care End Date 04/26/22 Therapeutic Interventions Therapeutic Interventions Aquatic Therapy,Balance Training,Gait Training,Home Exercise Program,Manual Therapy,Neuromuscular Re- education,Patient/Caregiver Education,Self-Care/Home Management,Soft Tissue Mobilization,Therapeutic Exercises Modalities Cold Pack/Ice Massage, Ultrasound Next Visit Focus/Plan Next Note Type Treatment Note Next Visit Plan continue core stabilization, gait training,
--- NOTE | 2022-01-23 17:05 | PT.OTN ---
Current Diagnoses Strain of muscle, fascia and tendon of the posterior muscle group at thigh level, right thigh, initial encounter (01/23/22) Physical Therapy Treatment Note PT-OP-A Visit Information Start: 12/29/21 19:43 Freq: Status: Active Protocol: Document 01/23/22 13:00 LRN (Rec: 01/23/22 17:00 LRN [id number]) Out-Patient Physical Therapy Visit Information Visit Information Visit Type Treatment Note Visit Note 4 wks po Visit Start Time 13:00 Visit Stop Time 13:48 Total Visit Minutes 48 Visit Number 5 Evaluation Information Evaluation Date 01/04/22 Precautions Precautions PRECAUTIONS: Phase I: AVOID hip flexion coupled with knee ext (hamstring stretch) AND AVOID unsafe surfaces and environments. Protection of the R hamstring tendon at Ischial Tuberosity. Crutches 8 weeks (0-2 wks TTWBing) HTN not well controlled by meds (BP over 130-140/80-90) PT-OP-B Current Condition Start: 12/29/21 19:43 Freq: Status: Active Protocol: Document 01/04/22 13:01 LRN (Rec: 01/04/22 18:15 LRN [id number]) Current Condition History of Current Condition Onset Date 12/25/21 Current Complaints Impossible to get comfortable, not quite stable w/crutches. 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 Pt 10 days post op. Pt fall 09/05/21. Was carrying a heavy bin and slipped going up a step and both feet slipped off the step causing a lot of pain in the posterior thigh. Caused a lot of bruinsing and pain for 2 weeks after the fall. Kept walking for 6 weeks with his [place] and it didn't feel strong or stable; therefore sought further medical assessment. Was referred to [facility] for repair of tore R hamstring tendons off ischial tuberosity. 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 Prior Treatments and Tests Taking intermittently morphine /oxicodone, Tylenol, ASA for post-op blood thinning, Meloxicam as anti-inflammatory and Methylcarbonal (ms relaxor). Future Testing and Treatments Planned Next MD visit 01/09/22. Developmental History Developmental History Used crutches with knee replacement in 2013. Per pt, RLE PMH: meniscus tear - ACL in 1987, Meniscectomy in , Partial TKA 2008, TKA 2013. R Bunionectomy, R ankle tendon repair, 2 shoulder surgeries. Treatment Goals Patient/Caregiver Goals Pt goal is: Safely get to point to safely stand. Safely get through stage of healing to do strengthening at home of hamstrings. Balance standing with safety of hamstring tendon secure. Prior Functional Status Baseline Function- ADL's Needs Assist Baseline Function- Mobility Needs Assist Baseline Function- Gait Normal gait, no assistive device. 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 Baseline Function- Recreation/Hobbies 10 mile Hikes, coud drive 6 miles, general stiffness after driving long distances. Current Functional Impairments (Reported) Functional Limitations- ADL's Sitting tolerance - 1 minute before having to shift and move. Functional Limitations- Mobility/Gait Gait with crutches, NWBind RLE , wearing knee brace locked at 45 deg's flex. Functional Limitations- Work/School Retired. Functional Limitations- Recreation/ Not able to participate Hobbies Functional Limitations- Other Increased urination at nighttime (5 times per night). Personal Factors Other Personal Factors That May Effect Protocol limiting R Hip/knee Therapy/Recovery mobility & strengthening due to proper healing, R knee brace locked at 50 deg's flex for wks 0-6. Uncontrolled HBP PT-OP-C Subjective Start: 12/29/21 19:43 Freq: Status: Active Protocol: Document 01/23/22 13:00 LRN (Rec: 01/23/22 17:00 LRN [id number]) OP-PT Subjective Patient Comments Patient Comments Saw PA (at 2 wks po) a couple PT appts ago. His knee brace is locked at 30 deg's knee flexion and is TTWBing (#40) on RLE. Pt to cont trunk ex's . PT-OP-G Mobility & Gait Start: 12/29/21 19:43 Freq: Status: Active Protocol: Document 01/04/22 13:01 LRN (Rec: 01/04/22 18:21 LRN [id number]) OP Gait Assessment Gait Gait Assistance Required: Standby Assistance Distance (Feet) 100 Able to Maintain Weight Bearing Status Yes During Gait Assistive Devices Assistive Device Axillary Crutches Factors Limiting Gait Function Factors Limiting Gait Function Decreased Activity Tolerance, Incoordination,Poor Safety Awareness Comments Gait Comments Pt at time not very steady with gait but was able to self correct. PT-OP-K Range of Motion Start: 12/29/21 19:43 Freq: Status: Active Protocol: Document 01/04/22 13:01 LRN (Rec: 01/04/22 18:19 LRN [id number]) Knee Goniometric Range of Motion Knee Right Knee ROM WFL No Comments Deferred Left Knee ROM WFL Yes Patient Position Sitting Comments WNL PT-OP-M Strength Start: 12/29/21 19:43 Freq: Status: Active Protocol: Document 01/04/22 13:01 LRN (Rec: 01/04/22 18:19 LRN [id number]) Knee Strength Knee Manual Muscle Testing Right Comments Deferred per post op protocol Left Flexion (S2) 5 Normal Extension (L3) 5 Normal Ankle/Foot Strength Ankle and Foot Manual Muscle Testing Right Comments Deferred testing due to NWBing post op protocol for wks 0-2. Pt is able to do active ankle pumps; therefore strenght is at least 3/5. Left Comments Generally 5/5 PT-OP-Q Treatments Start: 12/29/21 19:43 Freq: Status: Active Protocol: Document 01/23/22 13:00 LRN (Rec: 01/23/22 17:00 LRN [id number]) Cardio Equipment Upper Body Ergometer (UBE) Duration (Minutes) 10 RPM 75 Seat Position Feet placed at farthest bar. Height 3 Therapeutic Exercises Sitting Exercises QS Sitting Exercise Name QS with heel dangling Side right Reps/Minutes 10 SH x [address] Side right Equipment Used lvl 2 Reps/Minutes 15 x 2 each Comments cues for ankle only slower pacing PT-OP-T Assessment and Plan Start: 12/29/21 19:43 Freq: Status: Active Protocol: Document 01/23/22 13:00 LRN (Rec: 01/23/22 17:00 LRN [id number]) Physical Therapy Assessment Goals Four Impairment R Hamstring weakness Impairment Protocol: PROM of knee flexion only (strength 0/5). Short Term Goal (STG) Phase I: PROM R knee, no hip flexion during knee extension. Phase II: Pt able to tolerate beginning hamstring strengthening (avoiding lengthening of hamstring position (hip flex w/knee ext) ). Pt able to perform standing hip ext (knee straight), and preeti/conc strengthening of hamstrings on HEP per protocol safely for pt to feel safe in standing. STG Duration 03/29/22 Computer Aide Goal (LTG) Pt able to strengthen R hamstring in a lengthened hamstring position (per protocol) s/p wks 12-16 and will be able to b-alance standing with safety of hamstring tendon secure. LTG Duration 04/26/22 Three Impairment Decreased Standing due to limited WBing in RLE Impairment Protocol limits standing to NWBing wks 0-2, TTWBing 2-6 wks. Short Term Goal (STG) Phase I: Pt will be able to walk with crutches and TTWBing through s/p wks 1-6. (01/23/22: Pt ambs with TTWBinf and crutches) STG Duration 02/15/22 (01/23/22: pt compliant, walking with TTWBing/crutches) Computer Aide Goal (LTG) Per protocol: Phase II (wks 5 -12) Normal gait, Functional mvmts w/o unloading the RLE while demonstrating good control. SLS greater than 15 secs. Normal 5/5 R hamstring strength w/knee in 90 deg's flexion at least 4/5. Pt will be able to safely stand. LTG Duration 04/26/22 Two Impairment Decreased R knee PROM/AROM Impairment s/p wks 0-6: No active knee ROM Passive R knee flexion limited by brace to 30 deg's flexion. Per protocol: No active R knee ext with flexion of R hip. Short Term Goal (STG) Improve R knee PROM (without hip flex) per rehab protocol. STG Duration 02/15/22 Computer Aide Goal (LTG) Phase II for R knee: R knee 0 -30 deg's. LTG Duration 04/26/22 One Impairment Lacks Self care Impairment Pt under adherence to protocol Short Term Goal (STG) Pt has good understanding phase I-II of self skilled nursing program per rehab protocol. STG Duration 03/29/22 (01/23/21: MET GOAL) Computer Aide Goal (LTG) Pt has good understanding of phase III self skilled nursing program rehab protocol. LTG Duration 04/26/22 Assessment Summary Assessment Pt is ~ 4 wks post op. Pt is walking with good mechanics using TTWBing (per pt, up to 40#). The pt appears to have poor awareness of resistance level with strengthening; therefore pt may have increased chance of injury if not able to be more aware of ms contraction and resistance. Therapy focused today on trying to improve pt awareness of max resistance level appropriate for the mechanics at the R hip/knee. Pt had a lot of difficulty controlling his R hip/knee because he wanted to use high resistance since he couldn't feel the resistance and he wanted more , but control of the leg was poor at his high resistance. Much trainging was given for all motions of ankle exercise. Upper body and UE strengthening is helpful in improving pt's attitude and level of depression. Physical Therapy Plan Frequency and Duration Frequency of Treatment 2x/Week Plan of Care Start Date 01/04/22 Plan of Care End Date 04/26/22 Next Visit Focus/Plan Next Note Type Treatment Note Next Visit Plan Pt in Phase I (1-6 wks protective phase). Start scar mobs. Continue core stabilization and upper body strengthening. POC: Follow R Hamstring repair per protocol of Dr. Kolby Locke (see notes section in documentation system). PRECAUTIONS: R knee brace locked at 30 deg's flexion. AVOID hip flexion coupled with knee ext ( hamstring stretch) & AVOID unsafe surfaces and environments. 1-6 weeks: TTWBing (per online protocol), start scar mobs, cont in knee brace: QS, ankle pumps, abdominal isometrics. Knee to remain in brace locked at 30 deg's flex (no ext mvmt allowed). PROM with no hip flex during knee ext. Modalities of pain, possible lymph massage. Post op wk 3-4 pt is allowed pool walking (w/o hip flexion coupled with knee ext): Hip AB, ext and Phase I: wks 1-6. Protective phase. Phase II: wks 6-12. Brace hinge 0-30 deg's, wean off crutches and normalize gait, good control of mvmt including step up/down, squat, parital lunge (<60 deg's knee flex). Precautions: avoid dynamic stretching, no impact or running. Phase III: Usually 3 months after surgery, see protocol.
--- NOTE | 2022-01-26 17:01 | PT.OTN ---
Current Diagnoses Strain of muscle, fascia and tendon of the posterior muscle group at thigh level, right thigh, initial encounter (01/26/22) Physical Therapy Treatment Note PT-OP-A Visit Information Start: 12/29/21 19:43 Freq: Status: Active Protocol: Document 01/26/22 14:58 LRN (Rec: 01/26/22 17:00 LRN [id number]) Out-Patient Physical Therapy Visit Information Visit Information Visit Type Treatment Note Visit Note ~4.5 wks po. Pt 28' late for appt. Visit Start Time 14:58 Visit Stop Time 15:23 Total Visit Minutes 25 Visit Number 6 Evaluation Information Evaluation Date 01/04/22 Precautions Precautions PRECAUTIONS: Phase I: AVOID hip flexion coupled with knee ext (hamstring stretch) AND AVOID unsafe surfaces and environments. Protection of the R hamstring tendon at Ischial Tuberosity. Crutches 8 weeks (0-2 wks TTWBing) HTN not well controlled by meds (BP over 130-140/80-90) PT-OP-B Current Condition Start: 12/29/21 19:43 Freq: Status: Active Protocol: Document 01/04/22 13:01 LRN (Rec: 01/04/22 18:15 LRN [id number]) Current Condition History of Current Condition Onset Date 12/25/21 Current Complaints Impossible to get comfortable, not quite stable w/crutches. 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 Pt 10 days post op. Pt fall 09/05/21. Was carrying a heavy bin and slipped going up a step and both feet slipped off the step causing a lot of pain in the posterior thigh. Caused a lot of bruinsing and pain for 2 weeks after the fall. Kept walking for 6 weeks with his [place] and it didn't feel strong or stable; therefore sought further medical assessment. Was referred to [facility] for repair of tore R hamstring tendons off ischial tuberosity. 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 Prior Treatments and Tests Taking intermittently morphine /oxicodone, Tylenol, ASA for post-op blood thinning, Meloxicam as anti-inflammatory and Methylcarbonal (ms relaxor). Future Testing and Treatments Planned Next MD visit 01/09/22. Developmental History Developmental History Used crutches with knee replacement in 2013. Per pt, RLE PMH: meniscus tear - ACL in 1987, Meniscectomy in , Partial TKA 2008, TKA 2013. R Bunionectomy, R ankle tendon repair, 2 shoulder surgeries. Treatment Goals Patient/Caregiver Goals Pt goal is: Safely get to point to safely stand. Safely get through stage of healing to do strengthening at home of hamstrings. Balance standing with safety of hamstring tendon secure. Prior Functional Status Baseline Function- ADL's Needs Assist Baseline Function- Mobility Needs Assist Baseline Function- Gait Normal gait, no assistive device. 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 Baseline Function- Recreation/Hobbies 10 mile Hikes, coud drive 6 miles, general stiffness after driving long distances. Current Functional Impairments (Reported) Functional Limitations- ADL's Sitting tolerance - 1 minute before having to shift and move. Functional Limitations- Mobility/Gait Gait with crutches, NWBind RLE , wearing knee brace locked at 45 deg's flex. Functional Limitations- Work/School Retired. Functional Limitations- Recreation/ Not able to participate Hobbies Functional Limitations- Other Increased urination at nighttime (5 times per night). Personal Factors Other Personal Factors That May Effect Protocol limiting R Hip/knee Therapy/Recovery mobility & strengthening due to proper healing, R knee brace locked at 50 deg's flex for wks 0-6. Uncontrolled HBP PT-OP-C Subjective Start: 12/29/21 19:43 Freq: Status: Active Protocol: Document 01/26/22 14:58 LRN (Rec: 01/26/22 17:00 LRN [id number]) OP-PT Subjective Patient Comments Patient Comments States the brace slipped down and he has been trying to adjust so as not to get pressure at the knee joint. PT-OP-G Mobility & Gait Start: 12/29/21 19:43 Freq: Status: Active Protocol: Document 01/04/22 13:01 LRN (Rec: 01/04/22 18:21 LRN [id number]) OP Gait Assessment Gait Gait Assistance Required: Standby Assistance Distance (Feet) 100 Able to Maintain Weight Bearing Status Yes During Gait Assistive Devices Assistive Device Axillary Crutches Factors Limiting Gait Function Factors Limiting Gait Function Decreased Activity Tolerance, Incoordination,Poor Safety Awareness Comments Gait Comments Pt at time not very steady with gait but was able to self correct. PT-OP-K Range of Motion Start: 12/29/21 19:43 Freq: Status: Active Protocol: Document 01/04/22 13:01 LRN (Rec: 01/04/22 18:19 LRN [id number]) Knee Goniometric Range of Motion Knee Right Knee ROM WFL No Comments Deferred Left Knee ROM WFL Yes Patient Position Sitting Comments WNL PT-OP-M Strength Start: 12/29/21 19:43 Freq: Status: Active Protocol: Document 01/04/22 13:01 LRN (Rec: 01/04/22 18:19 LRN [id number]) Knee Strength Knee Manual Muscle Testing Right Comments Deferred per post op protocol Left Flexion (S2) 5 Normal Extension (L3) 5 Normal Ankle/Foot Strength Ankle and Foot Manual Muscle Testing Right Comments Deferred testing due to NWBing post op protocol for wks 0-2. Pt is able to do active ankle pumps; therefore strenght is at least 3/5. Left Comments Generally 5/5 PT-OP-Q Treatments Start: 12/29/21 19:43 Freq: Status: Active Protocol: Document 01/26/22 14:58 LRN (Rec: 01/26/22 17:00 LRN [id number]) Cardio Equipment Upper Body Ergometer (UBE) Duration (Minutes) 16 RPM 75 Seat Position 10 (feet on 2nd strut) Height 2.5 Therapeutic Exercises Sitting Exercises Trunk SB Sitting Exercise Name Trunk SB strengthening Side bilateral Equipment Used Lev 4 TBand Reps/Minutes 10x Comments Extra time to determine max juan antonio resistance & positioning/ hand holding rotation Sitting Exercise Name Trunk Rot Strengthening Side bilateral Equipment Used Lev 4 TBand Reps/Minutes 10x Comments Extra time to determine max juan antonio resistance & positioning/ hand holding Manual Therapy Treatment Soft Tissue Mobilization Scar mob R buttock Body Location R buttock well healed scar Mobilization Type Myofascial Release Intensity/Depth Moderate Body Position Sidelying Comments Pt very aggressive with self mob and needed hand on hand guidance and v cuing to be more gentle with mob. Pt present and was shown areas of scar restriction and verbally cued for assisting pt if needed. PT-OP-T Assessment and Plan Start: 12/29/21 19:43 Freq: Status: Active Protocol: Document 01/26/22 14:58 LRN (Rec: 01/26/22 17:00 [email or web address] [id number]) Physical Therapy Assessment Goals Four Impairment R Hamstring weakness Impairment Protocol: PROM of knee flexion only (strength 0/5). Short Term Goal (STG) Phase I: PROM R knee, no hip flexion during knee extension. Phase II: Pt able to tolerate beginning hamstring strengthening (avoiding lengthening of hamstring position (hip flex w/knee ext) ). Pt able to perform standing hip ext (knee straight), and preeti/conc strengthening of hamstrings on HEP per protocol safely for pt to feel safe in standing. STG Duration 03/29/22 Surveillance Monitor Goal (LTG) Pt able to strengthen R hamstring in a lengthened hamstring position (per protocol) s/p wks 12-16 and will be able to b-alance standing with safety of hamstring tendon secure. LTG Duration 04/26/22 Three Impairment Decreased Standing due to limited WBing in RLE Impairment Protocol limits standing to NWBing wks 0-2, TTWBing 2-6 wks. Short Term Goal (STG) Phase I: Pt will be able to walk with crutches and TTWBing through s/p wks 1-6. (01/23/22: Pt ambs with TTWBinf and crutches) STG Duration 02/15/22 (01/23/22: pt compliant, walking with TTWBing/crutches) Jail Goal (LTG) Per protocol: Phase II (wks 5 -12) Normal gait, Functional mvmts w/o unloading the RLE while demonstrating good control. SLS greater than 15 secs. Normal 5/5 R hamstring strength w/knee in 90 deg's flexion at least 4/5. Pt will be able to safely stand. LTG Duration 04/26/22 Two Impairment Decreased R knee PROM/AROM Impairment s/p wks 0-6: No active knee ROM Passive R knee flexion limited by brace to 30 deg's flexion. Per protocol: No active R knee ext with flexion of R hip. Short Term Goal (STG) Improve R knee PROM (without hip flex) per rehab protocol. STG Duration 02/15/22 Jail Goal (LTG) Phase II for R knee: R knee 0 -30 deg's. LTG Duration 04/26/22 One Impairment Lacks Self care Impairment Pt under adherence to protocol Short Term Goal (STG) Pt has good understanding phase I-II of self detention program per rehab protocol. STG Duration 03/29/22 (01/23/21: MET GOAL) Jail Goal (LTG) Pt has good understanding of phase III self detention program rehab protocol. LTG Duration 04/26/22 Assessment Summary Assessment Pt healed scar is mildly red. Decreased mobility at most distal end. Soft tissue restrictions inferior to scar. Pt had no sensation of pain with scar mob, but noted when he sits on the scar it is tender. Pt's R knee mildly swollen, but brace in good position . Physical Therapy Plan Frequency and Duration Frequency of Treatment 2x/Week Plan of Care Start Date 01/04/22 Plan of Care End Date 04/26/22 Next Visit Focus/Plan Next Note Type Treatment Note Next Visit Plan Pt in Phase I (1-6 wks protective phase). Monitor scar mobility. Continue core stabilization and upper body strengthening. POC: Follow R Hamstring repair per protocol of Dr. Kolby Locke (see notes section in documentation system). PRECAUTIONS: R knee brace locked at 30 deg's flexion. AVOID hip flexion coupled with knee ext ( hamstring stretch) & AVOID unsafe surfaces and environments. 1-6 weeks: TTWBing (per online protocol), start scar mobs, cont in knee brace: QS, ankle pumps, abdominal isometrics. Knee to remain in brace locked at 30 deg's flex (no ext mvmt allowed). PROM with no hip flex during knee ext. Modalities of pain, possible lymph massage. Post op wk 3-4 pt is allowed pool walking (w/o hip flexion coupled with knee ext): Hip AB, ext and Phase I: wks 1-6. Protective phase. Phase II: wks 6-12. Brace hinge 0-30 deg's, wean off crutches and normalize gait, good control of mvmt including step up/down, squat, parital lunge (<60 deg's knee flex). Precautions: avoid dynamic stretching, no impact or running. Phase III: Usually 3 months after surgery, see protocol.
--- NOTE | 2022-01-30 17:32 | PT.OTN ---
Current Diagnoses Strain of muscle, fascia and tendon of the posterior muscle group at thigh level, right thigh, initial encounter (01/30/22) Physical Therapy Treatment Note PT-OP-A Visit Information Start: 12/29/21 19:43 Freq: Status: Active Protocol: Document 01/30/22 13:47 LRN (Rec: 01/30/22 17:31 LRN [id number]) Out-Patient Physical Therapy Visit Information Visit Information Visit Type Treatment Note Visit Note ~ po wk 5 Visit Start Time 13:47 Visit Stop Time 14:39 Total Visit Minutes 52 Visit Number 7 Evaluation Information Evaluation Date 01/04/22 Precautions Precautions PRECAUTIONS: Phase I: AVOID hip flexion coupled with knee ext (hamstring stretch) AND AVOID unsafe surfaces and environments. Protection of the R hamstring tendon at Ischial Tuberosity. Crutches 8 weeks (0-2 wks TTWBing) HTN not well controlled by meds (BP over 130-140/80-90) PT-OP-B Current Condition Start: 12/29/21 19:43 Freq: Status: Active Protocol: Document 01/04/22 13:01 LRN (Rec: 01/04/22 18:15 LRN [id number]) Current Condition History of Current Condition Onset Date 12/25/21 Current Complaints Impossible to get comfortable, not quite stable w/crutches. 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 Pt 10 days post op. Pt fall 09/05/21. Was carrying a heavy bin and slipped going up a step and both feet slipped off the step causing a lot of pain in the posterior thigh. Caused a lot of bruinsing and pain for 2 weeks after the fall. Kept walking for 6 weeks with his [place] and it didn't feel strong or stable; therefore sought further medical assessment. Was referred to [facility] for repair of tore R hamstring tendons off ischial tuberosity. 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 Prior Treatments and Tests Taking intermittently morphine /oxicodone, Tylenol, ASA for post-op blood thinning, Meloxicam as anti-inflammatory and Methylcarbonal (ms relaxor). Future Testing and Treatments Planned Next MD visit 01/09/22. Developmental History Developmental History Used crutches with knee replacement in 2013. Per pt, RLE PMH: meniscus tear - ACL in 1987, Meniscectomy in , Partial TKA 2008, TKA 2013. R Bunionectomy, R ankle tendon repair, 2 shoulder surgeries. Treatment Goals Patient/Caregiver Goals Pt goal is: Safely get to point to safely stand. Safely get through stage of healing to do strengthening at home of hamstrings. Balance standing with safety of hamstring tendon secure. Prior Functional Status Baseline Function- ADL's Needs Assist Baseline Function- Mobility Needs Assist Baseline Function- Gait Normal gait, no assistive device. 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 Baseline Function- Recreation/Hobbies 10 mile Hikes, coud drive 6 miles, general stiffness after driving long distances. Current Functional Impairments (Reported) Functional Limitations- ADL's Sitting tolerance - 1 minute before having to shift and move. Functional Limitations- Mobility/Gait Gait with crutches, NWBind RLE , wearing knee brace locked at 45 deg's flex. Functional Limitations- Work/School Retired. Functional Limitations- Recreation/ Not able to participate Hobbies Functional Limitations- Other Increased urination at nighttime (5 times per night). Personal Factors Other Personal Factors That May Effect Protocol limiting R Hip/knee Therapy/Recovery mobility & strengthening due to proper healing, R knee brace locked at 50 deg's flex for wks 0-6. Uncontrolled HBP PT-OP-C Subjective Start: 12/29/21 19:43 Freq: Status: Active Protocol: Document 01/30/22 13:47 LRN (Rec: 01/30/22 17:31 LRN [id number]) OP-PT Subjective Patient Comments Patient Comments Next MD visit 02/15/22. States concern that when he wakes he stretches and wonders if his R knee is swollen because of it. PT-OP-G Mobility & Gait Start: 12/29/21 19:43 Freq: Status: Active Protocol: Document 01/04/22 13:01 LRN (Rec: 01/04/22 18:21 LRN [id number]) OP Gait Assessment Gait Gait Assistance Required: Standby Assistance Distance (Feet) 100 Able to Maintain Weight Bearing Status Yes During Gait Assistive Devices Assistive Device Axillary Crutches Factors Limiting Gait Function Factors Limiting Gait Function Decreased Activity Tolerance, Incoordination,Poor Safety Awareness Comments Gait Comments Pt at time not very steady with gait but was able to self correct. PT-OP-K Range of Motion Start: 12/29/21 19:43 Freq: Status: Active Protocol: Document 01/04/22 13:01 LRN (Rec: 01/04/22 18:19 LRN [id number]) Knee Goniometric Range of Motion Knee Right Knee ROM WFL No Comments Deferred Left Knee ROM WFL Yes Patient Position Sitting Comments WNL PT-OP-M Strength Start: 12/29/21 19:43 Freq: Status: Active Protocol: Document 01/04/22 13:01 LRN (Rec: 01/04/22 18:19 LRN [id number]) Knee Strength Knee Manual Muscle Testing Right Comments Deferred per post op protocol Left Flexion (S2) 5 Normal Extension (L3) 5 Normal Ankle/Foot Strength Ankle and Foot Manual Muscle Testing Right Comments Deferred testing due to NWBing post op protocol for wks 0-2. Pt is able to do active ankle pumps; therefore strenght is at least 3/5. Left Comments Generally 5/5 PT-OP-Q Treatments Start: 12/29/21 19:43 Freq: Status: Active Protocol: Document 01/30/22 13:47 LRN (Rec: 01/30/22 17:31 LRN [id number]) Cardio Equipment Upper Body Ergometer (UBE) Duration (Minutes) 10 RPM 75 Seat Position 10 (feet on 2nd strut) Height 2.5 Therapeutic Exercises Sitting Exercises Trunk SB Sitting Exercise Name Trunk SB strengthening Side bilateral Equipment Used Lev 4 TBand Reps/Minutes 15x Comments Extra time to determine max juan antonio resistance & positioning/ hand holding QS Sitting Exercise Name QS with heel dangling Side right Reps/Minutes 10 SH x 10 rotation Sitting Exercise Name Trunk Rot Strengthening Side bilateral Equipment Used Lev 4 TBand Reps/Minutes 15x Comments Extra time to determine max juan antonio resistance & positioning/ hand holding ankle 4 way Side right Equipment Used lvl 3 Reps/Minutes 15 x 2 each Comments cues for ankle only slower pacing Self-Care/Home Management Treatment Activities Self-Care/Home Management Activities Contacted Dr Kolby Locke MD office. Message left with office staff requesting call back to discuss pt's rehab protocol. Call back received 14:18p from Gabriel Director Of Event Management, and it was discussed of the clarifications needed to be addressed with protocol of brace to be on at all times but to do PROM of knee and for approved treatment of water therapy, without mention of brace; and website protocol referred to for further instructions. Gabriel stated best to go by issued rehab protocol and not website protocol. Gabriel also stated that 2 other protocols issued to patient were the same and appeared to be the same as the initial protocol faxed. Gabriel will check with PA to respond to questions regarding protocol (1-if pt is supposed to stay in locked brace or if he is supposed to be out of brace for PROM, 2-if recommended water walking is to be done with brace on and locked) PT-OP-T Assessment and Plan Start: 12/29/21 19:43 Freq: Status: Active Protocol: Document 01/30/22 13:47 LRN (Rec: 01/30/22 17:31 LRN [id number]) Physical Therapy Assessment Goals Four Impairment R Hamstring weakness Impairment Protocol: PROM of knee flexion only (strength 0/5). Short Term Goal (STG) Phase I: PROM R knee, no hip flexion during knee extension. Phase II: Pt able to tolerate beginning hamstring strengthening (avoiding lengthening of hamstring position (hip flex w/knee ext) ). Pt able to perform standing hip ext (knee straight), and preeti/conc strengthening of hamstrings on HEP per protocol safely for pt to feel safe in standing. STG Duration 03/29/22 Nursing Home Goal (LTG) Pt able to strengthen R hamstring in a lengthened hamstring position (per protocol) s/p wks 12-16 and will be able to b-alance standing with safety of hamstring tendon secure. LTG Duration 04/26/22 Three Impairment Decreased Standing due to limited WBing in RLE Impairment Protocol limits standing to NWBing wks 0-2, TTWBing 2-6 wks. Short Term Goal (STG) Phase I: Pt will be able to walk with crutches and TTWBing through s/p wks 1-6. (01/23/22: Pt ambs with TTWBinf and crutches) STG Duration 02/15/22 (01/23/22: pt compliant, walking with TTWBing/crutches) Director Of Maternity Services Goal (LTG) Per protocol: Phase II (wks 5 -12) Normal gait, Functional mvmts w/o unloading the RLE while demonstrating good control. SLS greater than 15 secs. Normal 5/5 R hamstring strength w/knee in 90 deg's flexion at least 4/5. Pt will be able to safely stand. LTG Duration 04/26/22 Two Impairment Decreased R knee PROM/AROM Impairment s/p wks 0-6: No active knee ROM Passive R knee flexion limited by brace to 30 deg's flexion. Per protocol: No active R knee ext with flexion of R hip. Short Term Goal (STG) Improve R knee PROM (without hip flex) per rehab protocol. STG Duration 02/15/22 Director Of Maternity Services Goal (LTG) Phase II for R knee: R knee 0 -30 deg's. LTG Duration 04/26/22 One Impairment Lacks Self care Impairment Pt under adherence to protocol Short Term Goal (STG) Pt has good understanding phase I-II of self group home program per rehab protocol. STG Duration 03/29/22 (01/23/21: MET GOAL) Director Of Maternity Services Goal (LTG) Pt has good understanding of phase III self group home program rehab protocol. LTG Duration 04/26/22 Assessment Summary Assessment Pt R knee appears swollen, and beginning to ache. Pt admits to sometimes accidently places more than TTWBing into the R LE with gait. Pt lower leg strength is good. Pt is able to maintain stable pelvis for isolated trunk rot and SB strengthening. Pt continues to be somewhat aggressive with his ankle exercises. Pt is wanting to do more. Physical Therapy Plan Frequency and Duration Frequency of Treatment 2x/Week Plan of Care Start Date 01/04/22 Plan of Care End Date 04/26/22 Next Visit Focus/Plan Next Note Type Treatment Note Next Visit Plan Pt in Phase I (1-6 wks protective phase). Monitor scar mobility. Continue core stabilization and upper body strengthening. POC: Follow R Hamstring repair per protocol of Dr. Kolby Locke (see notes section in documentation system). PRECAUTIONS: R knee brace locked at 30 deg's flexion. AVOID hip flexion coupled with knee ext ( hamstring stretch) & AVOID unsafe surfaces and environments. 1-6 weeks: TTWBing (per online protocol), start scar mobs, cont in knee brace: QS, ankle pumps, abdominal isometrics. Knee to remain in brace locked at 30 deg's flex (no ext mvmt allowed). PROM with no hip flex during knee ext. Modalities of pain, possible lymph massage. Post op wk 3-4 pt is allowed pool walking (w/o hip flexion coupled with knee ext): Hip AB, ext and Phase I: wks 1-6. Protective phase. Phase II: wks 6-12. Brace hinge 0-30 deg's, wean off crutches and normalize gait, good control of mvmt including step up/down, squat, parital lunge (<60 deg's knee flex). Precautions: avoid dynamic stretching, no impact or running. Phase III: Usually 3 months after surgery, see protocol.
--- NOTE | 2022-02-02 17:01 | PT.OTN ---
Current Diagnoses Strain of muscle, fascia and tendon of the posterior muscle group at thigh level, right thigh, initial encounter (02/02/22) Physical Therapy Treatment Note PT-OP-A Visit Information Start: 12/29/21 19:43 Freq: Status: Active Protocol: Document 02/02/22 08:20 LRN (Rec: 02/02/22 09:07 LRN [id number]) Out-Patient Physical Therapy Visit Information Visit Information Visit Type Treatment Note Visit Note Message received from pt that Edil Castro PA-C at [facility] okayed PROM of R knee. Visit Start Time 08:20 Visit Stop Time 09:17 Total Visit Minutes 57 Visit Number 8 Evaluation Information Evaluation Date 01/04/22 Precautions Precautions PRECAUTIONS: Phase I: AVOID hip flexion coupled with knee ext (hamstring stretch) AND AVOID unsafe surfaces and environments. Protection of the R hamstring tendon at Ischial Tuberosity. Crutches 8 weeks (0-2 wks TTWBing) HTN not well controlled by meds (BP over 130-140/80-90) PT-OP-B Current Condition Start: 12/29/21 19:43 Freq: Status: Active Protocol: Document 01/04/22 13:01 LRN (Rec: 01/04/22 18:15 LRN [id number]) Current Condition History of Current Condition Onset Date 12/25/21 Current Complaints Impossible to get comfortable, not quite stable w/crutches. 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 Pt 10 days post op. Pt fall 09/05/21. Was carrying a heavy bin and slipped going up a step and both feet slipped off the step causing a lot of pain in the posterior thigh. Caused a lot of bruinsing and pain for 2 weeks after the fall. Kept walking for 6 weeks with his [place] and it didn't feel strong or stable; therefore sought further medical assessment. Was referred to [facility] for repair of tore R hamstring tendons off ischial tuberosity. 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 Prior Treatments and Tests Taking intermittently morphine /oxicodone, Tylenol, ASA for post-op blood thinning, Meloxicam as anti-inflammatory and Methylcarbonal (ms relaxor). Future Testing and Treatments Planned Next MD visit 01/09/22. Developmental History Developmental History Used crutches with knee replacement in 2013. Per pt, RLE PMH: meniscus tear - ACL in 1987, Meniscectomy in , Partial TKA 2008, TKA 2013. R Bunionectomy, R ankle tendon repair, 2 shoulder surgeries. Treatment Goals Patient/Caregiver Goals Pt goal is: Safely get to point to safely stand. Safely get through stage of healing to do strengthening at home of hamstrings. Balance standing with safety of hamstring tendon secure. Prior Functional Status Baseline Function- ADL's Needs Assist Baseline Function- Mobility Needs Assist Baseline Function- Gait Normal gait, no assistive device. 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 Baseline Function- Recreation/Hobbies 10 mile Hikes, coud drive 6 miles, general stiffness after driving long distances. Current Functional Impairments (Reported) Functional Limitations- ADL's Sitting tolerance - 1 minute before having to shift and move. Functional Limitations- Mobility/Gait Gait with crutches, NWBind RLE , wearing knee brace locked at 45 deg's flex. Functional Limitations- Work/School Retired. Functional Limitations- Recreation/ Not able to participate Hobbies Functional Limitations- Other Increased urination at nighttime (5 times per night). Personal Factors Other Personal Factors That May Effect Protocol limiting R Hip/knee Therapy/Recovery mobility & strengthening due to proper healing, R knee brace locked at 50 deg's flex for wks 0-6. Uncontrolled HBP PT-OP-C Subjective Start: 12/29/21 19:43 Freq: Status: Active Protocol: Document 02/02/22 08:20 LRN (Rec: 02/02/22 09:07 LRN [id number]) OP-PT Subjective Patient Comments Patient Comments Pt states the PA at DR. Locke 's office okayed PROM of R knee. Has walked 3 blocks and with sitting funny, the hamstrings hurt and he needed Tylenol. PT-OP-G Mobility & Gait Start: 12/29/21 19:43 Freq: Status: Active Protocol: Document 01/04/22 13:01 LRN (Rec: 01/04/22 18:21 LRN [id number]) OP Gait Assessment Gait Gait Assistance Required: Standby Assistance Distance (Feet) 100 Able to Maintain Weight Bearing Status Yes During Gait Assistive Devices Assistive Device Axillary Crutches Factors Limiting Gait Function Factors Limiting Gait Function Decreased Activity Tolerance, Incoordination,Poor Safety Awareness Comments Gait Comments Pt at time not very steady with gait but was able to self correct. PT-OP-K Range of Motion Start: 12/29/21 19:43 Freq: Status: Active Protocol: Document 01/04/22 13:01 LRN (Rec: 01/04/22 18:19 LRN [id number]) Knee Goniometric Range of Motion Knee Right Knee ROM WFL No Comments Deferred Left Knee ROM WFL Yes Patient Position Sitting Comments WNL PT-OP-M Strength Start: 12/29/21 19:43 Freq: Status: Active Protocol: Document 01/04/22 13:01 LRN (Rec: 01/04/22 18:19 LRN [id number]) Knee Strength Knee Manual Muscle Testing Right Comments Deferred per post op protocol Left Flexion (S2) 5 Normal Extension (L3) 5 Normal Ankle/Foot Strength Ankle and Foot Manual Muscle Testing Right Comments Deferred testing due to NWBing post op protocol for wks 0-2. Pt is able to do active ankle pumps; therefore strenght is at least 3/5. Left Comments Generally 5/5 PT-OP-Q Treatments Start: 12/29/21 19:43 Freq: Status: Active Protocol: Document 02/02/22 08:20 LRN (Rec: 02/02/22 09:07 LRN [id number]) Cardio Equipment Upper Body Ergometer (UBE) Duration (Minutes) 10 RPM 75 Seat Position 10 (feet on 2nd strut) Height 2.5 Therapeutic Exercises Supine Exercises R knee PROM Supine Exercise Name PROM Reps/Minutes 3' Sitting Exercises Seated Lat Pull Down Sitting Exercise Name Lat Pull Down. Side bilateral Equipment Used Lev 4 Reps/Minutes 15x Trunk SB Sitting Exercise Name Trunk SB strengthening Side bilateral Equipment Used Lev 4 TBand x 2 Reps/Minutes 15x 2 Comments Extra time to determine max juan antonio resistance & positioning/ hand holding QS Sitting Exercise Name QS with heel dangling Side right Reps/Minutes 10 SH x 10 seated rows Sitting Exercise Name Rows Side bilateral Equipment Used level 4 Reps/Minutes 15 reps Comments cues for core activation rotation Sitting Exercise Name Trunk Rot Strengthening Side bilateral Equipment Used Lev 4 TBand Reps/Minutes 15x 2 Comments Extra time to determine max juan antonio resistance & positioning/ hand holding ankle 4 way Side right Equipment Used lvl 3 Reps/Minutes 15 x 2 each Comments cues for ankle only slower pacing PT-OP-T Assessment and Plan Start: 12/29/21 19:43 Freq: Status: Active Protocol: Document 02/02/22 08:20 LRN (Rec: 02/02/22 09:07 LRN [id number]) Physical Therapy Assessment Goals Four Impairment R Hamstring weakness Impairment Protocol: PROM of knee flexion only (strength 0/5). Short Term Goal (STG) Phase I: PROM R knee, no hip flexion during knee extension. Phase II: Pt able to tolerate beginning hamstring strengthening (avoiding lengthening of hamstring position (hip flex w/knee ext) ). Pt able to perform standing hip ext (knee straight), and preeti/conc strengthening of hamstrings on HEP per protocol safely for pt to feel safe in standing. 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 LTG Duration 04/26/22 Three Impairment Decreased Standing due to limited WBing in RLE Impairment Protocol limits standing to NWBing wks 0-2, TTWBing 2-6 wks. Short Term Goal (STG) Phase I: Pt will be able to walk with crutches and TTWBing through s/p wks 1-6. (01/23/22: Pt ambs with TTWBinf and crutches) (02/02/22: End of week 6, pt ambs with TTWBing and crutches ). STG Duration 02/15/22 (02/02/22: MET GOAL) Correction Goal (LTG) Per protocol: Phase II (wks 5 -12) Normal gait, Functional mvmts w/o unloading the RLE while demonstrating good control. SLS greater than 15 secs. Normal 5/5 R hamstring strength w/knee in 90 deg's flexion at least 4/5. Pt will be able to safely stand. LTG Duration 04/26/22 Two Impairment Decreased R knee PROM/AROM Impairment s/p wks 0-6: No active knee ROM Passive R knee flexion limited by brace to 30 deg's flexion. Per protocol: No active R knee ext with flexion of R hip. Short Term Goal (STG) Improve R knee PROM (without hip flex) per rehab protocol. STG Duration 02/15/22 Correction Goal (LTG) Phase II for R knee: R knee 0 -30 deg's. LTG Duration 04/26/22 One Impairment Lacks Self care Impairment Pt under adherence to protocol Short Term Goal (STG) Pt has good understanding phase I-II of [facility] per rehab protocol. STG Duration 03/29/22 (01/23/21: MET GOAL) Correction Goal (LTG) Pt has good understanding of phase III self [facility] program rehab protocol. LTG Duration 04/26/22 Assessment Summary Assessment Pt 6 wks post op. R hamstring repair (end of protective phase). Pt had some pain with hamstrings on passive R knee flexion/hip flexion, no pain on return (knee ext/hip ext) Physical Therapy Plan Frequency and Duration Frequency of Treatment 2x/Week Plan of Care Start Date 01/04/22 Plan of Care End Date 04/26/22 Next Visit Focus/Plan Next Note Type Treatment Note Next Visit Plan Pt starting Phase II (wks 6-12 ). Monitor scar mobility. Continue core stabilization and upper body strengthening. POC: Follow R Hamstring repair per protocol of Dr. Kolby Locke (see notes section in documentation system). PRECAUTIONS: R knee brace locked at 30 deg's flexion. AVOID hip flexion coupled with knee ext ( hamstring stretch) & AVOID unsafe surfaces and environments. Knee to remain in brace locked at 30 deg's flex (no ext mvmt allowed) until cleared by MD. Cont PROM out of brace with no hip flex during knee ext. Modalities of pain. I/S pt in lymph massage. Post op wk 3-4 pt is allowed pool walking (w/o hip flexion coupled with knee ext): Hip AB, ext and Phase I: wks 1-6. Protective phase. Phase II: wks 6-12. Brace hinge 0-30 deg's, wean off crutches and normalize gait, good control of mvmt including step up/down, squat, partial lunge (<60 deg's knee flex). Precautions: avoid dynamic stretching, no impact or running. Phase III: Usually 3 months after surgery, see protocol.
--- NOTE | 2022-02-05 17:15 | PT.OTN ---
Current Diagnoses Strain of muscle, fascia and tendon of the posterior muscle group at thigh level, right thigh, initial encounter (02/05/22) Physical Therapy Treatment Note PT-OP-A Visit Information Start: 12/29/21 19:43 Freq: Status: Active Protocol: Document 02/05/22 13:52 LRN (Rec: 02/05/22 17:13 LRN [id number]) Out-Patient Physical Therapy Visit Information Visit Information Visit Type Treatment Note Visit Start Time 13:52 Visit Stop Time 14:35 Total Visit Minutes 43 Visit Number 9 Evaluation Information Evaluation Date 01/04/22 Precautions Precautions PRECAUTIONS: See POC for physician protocol. Protection of the R hamstring tendon at Ischial Tuberosity. Crutches 8 weeks (0-2 wks TTWBing) HTN not well controlled by meds (BP over 130-140/80-90) PT-OP-B Current Condition Start: 12/29/21 19:43 Freq: Status: Active Protocol: Document 01/04/22 13:01 LRN (Rec: 01/04/22 18:15 LRN [id number]) Current Condition History of Current Condition Onset Date 12/25/21 Current Complaints Impossible to get comfortable, not quite stable w/crutches. 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 Pt 10 days post op. Pt fall 09/05/21. Was carrying a heavy bin and slipped going up a step and both feet slipped off the step causing a lot of pain in the posterior thigh. Caused a lot of bruinsing and pain for 2 weeks after the fall. Kept walking for 6 weeks with his [place] and it didn't feel strong or stable; therefore sought further medical assessment. Was referred to [facility] for repair of tore R hamstring tendons off ischial tuberosity. 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 Prior Treatments and Tests Taking intermittently morphine /oxicodone, Tylenol, ASA for post-op blood thinning, Meloxicam as anti-inflammatory and Methylcarbonal (ms relaxor). Future Testing and Treatments Planned Next MD visit 01/09/22. Developmental History Developmental History Used crutches with knee replacement in 2013. Per pt, RLE PMH: meniscus tear - ACL in 1987, Meniscectomy in , Partial TKA 2008, TKA 2013. R Bunionectomy, R ankle tendon repair, 2 shoulder surgeries. Treatment Goals Patient/Caregiver Goals Pt goal is: Safely get to point to safely stand. Safely get through stage of healing to do strengthening at home of hamstrings. Balance standing with safety of hamstring tendon secure. Prior Functional Status Baseline Function- ADL's Needs Assist Baseline Function- Mobility Needs Assist Baseline Function- Gait Normal gait, no assistive device. 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 Baseline Function- Recreation/Hobbies 10 mile Hikes, coud drive 6 miles, general stiffness after driving long distances. Current Functional Impairments (Reported) Functional Limitations- ADL's Sitting tolerance - 1 minute before having to shift and move. Functional Limitations- Mobility/Gait Gait with crutches, NWBind RLE , wearing knee brace locked at 45 deg's flex. Functional Limitations- Work/School Retired. Functional Limitations- Recreation/ Not able to participate Hobbies Functional Limitations- Other Increased urination at nighttime (5 times per night). Personal Factors Other Personal Factors That May Effect Protocol limiting R Hip/knee Therapy/Recovery mobility & strengthening due to proper healing, R knee brace locked at 50 deg's flex for wks 0-6. Uncontrolled HBP PT-OP-C Subjective Start: 12/29/21 19:43 Freq: Status: Active Protocol: Document 02/05/22 13:52 LRN (Rec: 02/05/22 17:13 LRN [id number]) OP-PT Subjective Patient Comments Patient Comments R hamstrings are a little sore , but doesn't know why. He states he did a good workout yesterday and went to a show in [place]. PT-OP-G Mobility & Gait Start: 12/29/21 19:43 Freq: Status: Active Protocol: Document 01/04/22 13:01 LRN (Rec: 01/04/22 18:21 LRN [id number]) OP Gait Assessment Gait Gait Assistance Required: Standby Assistance Distance (Feet) 100 Able to Maintain Weight Bearing Status Yes During Gait Assistive Devices Assistive Device Axillary Crutches Factors Limiting Gait Function Factors Limiting Gait Function Decreased Activity Tolerance, Incoordination,Poor Safety Awareness Comments Gait Comments Pt at time not very steady with gait but was able to self correct. PT-OP-J Posture/Palpation/Skin Start: 12/29/21 19:43 Freq: Status: Active Protocol: Document 02/05/22 13:52 LRN (Rec: 02/05/22 17:13 LRN [id number]) Skin Assessment Other Assessments Skin Assessment Comments Discoloration in the posteromedial and posterolateral aspect of the R knee/thigh from knee to distal 1/3 of thigh. No pain on palpation. PT-OP-K Range of Motion Start: 12/29/21 19:43 Freq: Status: Active Protocol: Document 01/04/22 13:01 LRN (Rec: 01/04/22 18:19 LRN [id number]) Knee Goniometric Range of Motion Knee Right Knee ROM WFL No Comments Deferred Left Knee ROM WFL Yes Patient Position Sitting Comments WNL PT-OP-M Strength Start: 12/29/21 19:43 Freq: Status: Active Protocol: Document 01/04/22 13:01 LRN (Rec: 01/04/22 18:19 LRN [id number]) Knee Strength Knee Manual Muscle Testing Right Comments Deferred per post op protocol Left Flexion (S2) 5 Normal Extension (L3) 5 Normal Ankle/Foot Strength Ankle and Foot Manual Muscle Testing Right Comments Deferred testing due to NWBing post op protocol for wks 0-2. Pt is able to do active ankle pumps; therefore strenght is at least 3/5. Left Comments Generally 5/5 PT-OP-Q Treatments Start: 12/29/21 19:43 Freq: Status: Active Protocol: Document 02/05/22 13:52 LRN (Rec: 02/05/22 17:13 LRN [id number]) Cardio Equipment Upper Body Ergometer (UBE) Duration (Minutes) 10 RPM 75 Seat Position 10 (feet on 2nd strut) Height 2.5 Therapeutic Exercises Prone Exercises R knee prone hang Prone Exercise Name Prone lying with foot off plinth Side left Reps/Minutes 1'x 3 Comments Knee brace placed before and after exercise and before moving Sidelying Exercises PROM R knee Sidelying Exercise Name R side: No hip flexion: PROM R knee 0-60 deg's Reps/Minutes 26' Comments Pt tolerated 73 deg PROM before R knee tension felt Sitting Exercises QS Sitting Exercise Name QS with heel dangling Side right Reps/Minutes 10 SH x 10 PT-OP-T Assessment and Plan Start: 12/29/21 19:43 Freq: Status: Active Protocol: Document 02/05/22 13:52 LRN (Rec: 02/05/22 17:13 LRN [id number]) Physical Therapy Assessment Goals Four Impairment R Hamstring weakness Impairment Protocol: PROM of knee flexion only (strength 0/5). Short Term Goal (STG) Phase I: PROM R knee, no hip flexion during knee extension. Phase II: Pt able to tolerate beginning hamstring strengthening (avoiding lengthening of hamstring position (hip flex w/knee ext) ). Pt able to perform standing hip ext (knee straight), and preeti/conc strengthening of hamstrings on HEP per protocol safely for pt to feel safe in standing. (02/05/22: Pt tolerates PROM of R knee with no hip flexion - no pain or discomfort). 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 LTG Duration 04/26/22 Three Impairment Decreased Standing due to limited WBing in RLE Impairment Protocol limits standing to NWBing wks 0-2, TTWBing 2-6 wks. Short Term Goal (STG) Phase I: Pt will be able to walk with crutches and TTWBing through s/p wks 1-6. (01/23/22: Pt ambs with TTWBing and crutches) (02/02/22: End of week 6, pt ambs with TTWBing and crutches ). STG Duration 02/15/22 (02/02/22: MET GOAL) Water Pump Installer Goal (LTG) Per protocol: Phase II (wks 5 -12) Normal gait, Functional mvmts w/o unloading the RLE while demonstrating good control. SLS greater than 15 secs. Normal 5/5 R hamstring strength w/knee in 90 deg's flexion at least 4/5. Pt will be able to safely stand. LTG Duration 04/26/22 Two Impairment Decreased R knee PROM/AROM Impairment s/p wks 0-6: No active knee ROM Passive R knee flexion limited by brace to 30 deg's flexion. Per protocol: No active R knee ext with flexion of R hip. Short Term Goal (STG) Improve R knee PROM (without hip flex) per rehab protocol. (02/05/22: Passive R Knee ext without hip flexion is 0 deg's ) STG Duration 02/15/22 [facility] Goal (LTG) Phase II for R knee: R knee 0 -30 deg's. LTG Duration 04/26/22 One Impairment Lacks Self care Impairment Pt under adherence to protocol Short Term Goal (STG) Pt has good understanding phase I-II of self nursing home program per rehab protocol. STG Duration 03/29/22 (01/23/21: MET GOAL) Water Pump Installer Goal (LTG) Pt has good understanding of phase III self nursing home program rehab protocol. LTG Duration 04/26/22 Assessment Summary Assessment R hamstring tendon repair 12/25. Pt is 6 wks post op today (end of protective phase ). Pt has discoloration behind R knee and lower thigh but no tenderness. Pt may be overextending self, ?injury. No pain with PROM and is full passive knee ext without pain . Waiting for MD clearance to begin phase II next week. Physical Therapy Plan Frequency and Duration Frequency of Treatment 2x/Week Plan of Care Start Date 01/04/22 Plan of Care End Date 04/26/22 Next Visit Focus/Plan Next Note Type Treatment Note Next Visit Plan Pt starting Phase II (wks 6-12 ). Monitor scar mobility. Continue core stabilization and upper body strengthening. POC: Follow R Hamstring repair per protocol of Dr. Kolby Locke (see notes section in documentation system). PRECAUTIONS: R knee brace locked at 30 deg's flexion. AVOID hip flexion coupled with knee ext ( hamstring stretch) & AVOID unsafe surfaces and environments. Knee to remain in brace locked at 30 deg's flex (no ext mvmt allowed) until cleared by MD. Cont PROM out of brace with no hip flex during knee ext. Modalities of pain. I/S pt in lymph massage. Post op wk 3-4 pt is allowed pool walking (w/o hip flexion coupled with knee ext): Hip AB, ext and Phase I: wks 1-6. Protective phase. Phase II: wks 6-12. Brace hinge 0-30 deg's, wean off crutches and normalize gait, good control of mvmt including step up/down, squat, partial lunge (<60 deg's knee flex). Precautions: avoid dynamic stretching, no impact or running. Phase III: Usually 3 months after surgery, see protocol.
--- NOTE | 2022-02-09 13:15 | PT.OTN ---
Current Diagnoses Strain of muscle, fascia and tendon of the posterior muscle group at thigh level, right thigh, initial encounter (02/09/22) Physical Therapy Treatment Note PT-OP-A Visit Information Start: 12/29/21 19:43 Freq: Status: Active Protocol: Document 02/09/22 12:18 NBM (Rec: 02/09/22 12:20 NBM [id number]) Out-Patient Physical Therapy Visit Information Visit Information Visit Type Treatment Note Visit Start Time 12:25 Visit Stop Time 13:10 Total Visit Minutes 45 Visit Number 10 Precautions Precautions PRECAUTIONS: See POC for physician protocol. Protection of the R hamstring tendon at Ischial Tuberosity. Crutches 8 weeks (0-2 wks TTWBing) HTN not well controlled by meds (BP over 130-140/80-90) PT-OP-B Current Condition Start: 12/29/21 19:43 Freq: Status: Active Protocol: Document 01/04/22 13:01 LRN (Rec: 01/04/22 18:15 LRN [id number]) Current Condition History of Current Condition Onset Date 12/25/21 Current Complaints Impossible to get comfortable, not quite stable w/crutches. 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 Pt 10 days post op. Pt fall 09/05/21. Was carrying a heavy bin and slipped going up a step and both feet slipped off the step causing a lot of pain in the posterior thigh. Caused a lot of bruinsing and pain for 2 weeks after the fall. Kept walking for 6 weeks with his [place] and it didn't feel strong or stable; therefore sought further medical assessment. Was referred to [place] for repair of tore R hamstring tendons off ischial tuberosity. 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 Prior Treatments and Tests Taking intermittently morphine /oxicodone, Tylenol, ASA for post-op blood thinning, Meloxicam as anti-inflammatory and Methylcarbonal (ms relaxor). Future Testing and Treatments Planned Next MD visit 01/09/22. Developmental History Developmental History Used crutches with knee replacement in 2013. Per pt, RLE PMH: meniscus tear - ACL in 1987, Meniscectomy in , Partial TKA 2008, TKA 2013. R Bunionectomy, R ankle tendon repair, 2 shoulder surgeries. Treatment Goals Patient/Caregiver Goals Pt goal is: Safely get to point to safely stand. Safely get through stage of healing to do strengthening at home of hamstrings. Balance standing with safety of hamstring tendon secure. Prior Functional Status Baseline Function- ADL's Needs Assist Baseline Function- Mobility Needs Assist Baseline Function- Gait Normal gait, no assistive device. 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 Baseline Function- Recreation/Hobbies 10 mile Hikes, coud drive 6 miles, general stiffness after driving long distances. Current Functional Impairments (Reported) Functional Limitations- ADL's Sitting tolerance - 1 minute before having to shift and move. Functional Limitations- Mobility/Gait Gait with crutches, NWBind RLE , wearing knee brace locked at 45 deg's flex. Functional Limitations- Work/School Retired. Functional Limitations- Recreation/ Not able to participate Hobbies Functional Limitations- Other Increased urination at nighttime (5 times per night). Personal Factors Other Personal Factors That May Effect Protocol limiting R Hip/knee Therapy/Recovery mobility & strengthening due to proper healing, R knee brace locked at 50 deg's flex for wks 0-6. Uncontrolled HBP PT-OP-C Subjective Start: 12/29/21 19:43 Freq: Status: Active Protocol: Document 02/09/22 12:18 NBM (Rec: 02/09/22 17:51 [facility] [id number]) OP-PT Subjective Patient Comments Patient Comments Pt reports R hamstrings were sore and he may be overdoing it. He sat in tall hard chair to prepare vegetables and has been taking dog out for walk and felt sore after. He feels useless. He states he is mostly keeping weightbearing on RLE to less than 20% (40 lbs). He used to be active and can't wait to get knee brace off. His friend just passed of cancer. PT-OP-G Mobility & Gait Start: 12/29/21 19:43 Freq: Status: Active Protocol: Document 01/04/22 13:01 LRN (Rec: 01/04/22 18:21 LRN [id number]) OP Gait Assessment Gait Gait Assistance Required: Standby Assistance Distance (Feet) 100 Able to Maintain Weight Bearing Status Yes During Gait Assistive Devices Assistive Device Axillary Crutches Factors Limiting Gait Function Factors Limiting Gait Function Decreased Activity Tolerance, Incoordination,Poor Safety Awareness Comments Gait Comments Pt at time not very steady with gait but was able to self correct. PT-OP-J Posture/Palpation/Skin Start: 12/29/21 19:43 Freq: Status: Active Protocol: Document 02/05/22 13:52 LRN (Rec: 02/05/22 17:13 LRN [id number]) Skin Assessment Other Assessments Skin Assessment Comments Discoloration in the posteromedial and posterolateral aspect of the R knee/thigh from knee to distal 1/3 of thigh. No pain on palpation. PT-OP-K Range of Motion Start: 12/29/21 19:43 Freq: Status: Active Protocol: Document 01/04/22 13:01 LRN (Rec: 01/04/22 18:19 LRN [id number]) Knee Goniometric Range of Motion Knee Right Knee ROM WFL No Comments Deferred Left Knee ROM WFL Yes Patient Position Sitting Comments WNL PT-OP-M Strength Start: 12/29/21 19:43 Freq: Status: Active Protocol: Document 01/04/22 13:01 LRN (Rec: 01/04/22 18:19 LRN [id number]) Knee Strength Knee Manual Muscle Testing Right Comments Deferred per post op protocol Left Flexion (S2) 5 Normal Extension (L3) 5 Normal Ankle/Foot Strength Ankle and Foot Manual Muscle Testing Right Comments Deferred testing due to NWBing post op protocol for wks 0-2. Pt is able to do active ankle pumps; therefore strenght is at least 3/5. Left Comments Generally 5/5 PT-OP-Q Treatments Start: 12/29/21 19:43 Freq: Status: Active Protocol: Document 02/09/22 12:18 NBM (Rec: 02/09/22 17:51 NBM [id number]) Cardio Equipment Upper Body Ergometer (UBE) Duration (Minutes) 6 RPM 75 Seat Position 10 (feet on 2nd strut) Height 2.5 Other End of treatment session as pt initially declined, then changed mind. Therapeutic Exercises Prone Exercises R knee prone hang Prone Exercise Name Prone lying with foot off plinth Side left Reps/Minutes 1'x 5 Comments Knee brace placed before and after exercise and before moving Sidelying Exercises PROM R knee Sidelying Exercise Name R side: No hip flexion: PROM R knee 0-60 deg's Reps/Minutes 23' Sitting Exercises QS Sitting Exercise Name QS with heel dangling Side right Reps/Minutes 10 SH x 10 Self-Care/Home Management Treatment Education Patient Education Home Exercise Program,Joint Protection,Safety Other Education Education provided regarding phases of rehabilitatioin and healing and risk of reinjury if not adhering to protocol. Discussed hamstring soreness at this stage as indicator of overuse instead of need to strengthen. Pt encouraged to set goals/rewards w/ each stage of recovery to increase positive outlook. Discussed placing pillow on tall hard chair to alleviate hamstring soreness after preparing vegetables. PT-OP-T Assessment and Plan Start: 12/29/21 19:43 Freq: Status: Active Protocol: Document 02/09/22 12:18 NBM (Rec: 02/09/22 17:51 NBM [id number]) Physical Therapy Assessment Goals Four Impairment R Hamstring weakness Impairment Protocol: PROM of knee flexion only (strength 0/5). Short Term Goal (STG) Phase I: PROM R knee, no hip flexion during knee extension. Phase II: Pt able to tolerate beginning hamstring strengthening (avoiding lengthening of hamstring position (hip flex w/knee ext) ). Pt able to perform standing hip ext (knee straight), and preeti/conc strengthening of hamstrings on HEP per protocol safely for pt to feel safe in standing. (02/05/22: Pt tolerates PROM of R knee with no hip flexion - no pain or discomfort). 02/09/22: Pt tolerates PROM of R knee with no hip flexion w/ out pain or discomfort STG Duration 03/29/22 (02/05/22: Progressing) Fci Goal (LTG) Pt able to strengthen R hamstring in a lengthened hamstring position (per protocol) s/p wks 12-16 and will be able to balance standing with safety of hamstring tendon secure. LTG Duration 04/26/22 Three Impairment Decreased Standing due to limited WBing in RLE Impairment Protocol limits standing to NWBing wks 0-2, TTWBing 2-6 wks. Short Term Goal (STG) Phase I: Pt will be able to walk with crutches and TTWBing through s/p wks 1-6. (01/23/22: Pt ambs with TTWBing and crutches) (02/02/22: End of week 6, pt ambs with TTWBing and crutches ). 02/09/22: End of week 7, pt ambs with TTWBing and crutches. STG Duration 02/15/22 (02/02/22: MET GOAL) Electrical Hardware Engineer Goal (LTG) Per protocol: Phase II (wks 5 -12) Normal gait, Functional mvmts w/o unloading the RLE while demonstrating good control. SLS greater than 15 secs. Normal 5/5 R hamstring strength w/knee in 90 deg's flexion at least 4/5. Pt will be able to safely stand. LTG Duration 04/26/22 Two Impairment Decreased R knee PROM/AROM Impairment s/p wks 0-6: No active knee ROM Passive R knee flexion limited by brace to 30 deg's flexion. Per protocol: No active R knee ext with flexion of R hip. Short Term Goal (STG) Improve R knee PROM (without hip flex) per rehab protocol. (02/05/22: Passive R Knee ext without hip flexion is 0 deg's ) 02/09/22: Passive R Knee ext w/ out hip flexion is 0 deg STG Duration 02/15/22 Electrical Hardware Engineer Goal (LTG) Phase II for R knee: R knee 0 -30 deg's. LTG Duration 04/26/22 One Impairment Lacks Self care Impairment Pt under adherence to protocol Short Term Goal (STG) Pt has good understanding phase I-II of self halfway program per rehab protocol. STG Duration 03/29/22 (01/23/21: MET GOAL) Electrical Hardware Engineer Goal (LTG) Pt has good understanding of phase III self halfway program rehab protocol. LTG Duration 04/26/22 Assessment Summary Assessment R hamstring tendon repair 12/25. Pt is almost 7 weeks post-op - awaiting MD clearance to start Phase II protocol. Quentin has discoloration behind R knee and lower thigh but no tenderness. Lymph massage unnecessary due to minimal swelling. Treatment session focused on PROM and pt education for risk of reinjury. Quentin acknowledges he is unlikely maintaining TTWB in RLE less than 20% ( 40lbs) when walking dog outside. Pt educated on phases of rehab and healing, risk of reinjury w/ overuse, and hamstring soreness at this stage as indicator of overuse instead of need to strengthen. Pt encouraged to set goals/ rewards for each stage of recovery. Pt tolerates PROM knee flexion w/out pain and full PROM knee ext w/out pain. Physical Therapy Plan Next Visit Focus/Plan Next Note Type Treatment Note Next Visit Plan Check for MD clearance to start Phase II protocol. POC: Pt starting Phase II (wks 6-12 ). Monitor scar mobility. Continue core stabilization and upper body strengthening. POC: Follow R Hamstring repair per protocol of Dr. Kolby Locke (see notes section in documentation system). PRECAUTIONS: R knee brace locked at 30 deg's flexion. AVOID hip flexion coupled with knee ext ( hamstring stretch) & AVOID unsafe surfaces and environments. Knee to remain in brace locked at 30 deg's flex (no ext mvmt allowed) until cleared by MD. Cont PROM out of brace with no hip flex during knee ext. Modalities of pain. Post op wk 3-4 pt is allowed pool walking (w/o hip flexion coupled with knee ext): Hip AB, ext and Phase I: wks 1-6. Protective phase. Phase II: wks 6-12. Brace hinge 0-30 deg's, wean off crutches and normalize gait, good control of mvmt including step up/down, squat, partial lunge (<60 deg's knee flex). Precautions: avoid dynamic stretching, no impact or running. Phase III: Usually 3 months after surgery, see protocol.
--- NOTE | 2022-02-13 13:20 | PT.OTN ---
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 Visit Start Time 12:26 Visit Stop Time 13:20 Total Visit Minutes 56 Visit Number 11 Number of CITY MAIL CARRIER Visits 1 Evaluation Information Evaluation Date 01/04/22 Precautions Precautions PRECAUTIONS: See POC for physician protocol. Protection of the R hamstring tendon repair 12/15/21 at Ischial Tuberosity. Crutches 8 weeks (0-2 wks TTWBing) HTN not well controlled by meds (BP over 130-140/80-90) PT-OP-B Current Condition Start: 12/29/21 19:43 Freq: Status: Active Protocol: Document 01/04/22 13:01 LRN (Rec: 01/04/22 18:15 LRN [id number]) Current Condition History of Current Condition Onset Date 12/25/21 Current Complaints Impossible to get comfortable, not quite stable w/crutches. 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 Pt 10 days post op. Pt fall 09/05/21. Was carrying a heavy bin and slipped going up a step and both feet slipped off the step causing a lot of pain in the posterior thigh. Caused a lot of bruinsing and pain for 2 weeks after the fall. Kept walking for 6 weeks with his [place] and it didn't feel strong or stable; therefore sought further medical assessment. Was referred to [place] for repair of tore R hamstring tendons off ischial tuberosity. 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 Prior Treatments and Tests Taking intermittently morphine /oxicodone, Tylenol, ASA for post-op blood thinning, Meloxicam as anti-inflammatory and Methylcarbonal (ms relaxor). Future Testing and Treatments Planned Next MD visit 01/09/22. Developmental History Developmental History Used crutches with knee replacement in 2013. Per pt, RLE PMH: meniscus tear - ACL in 1987, Meniscectomy in , Partial TKA 2008, TKA 2013. R Bunionectomy, R ankle tendon repair, 2 shoulder surgeries. Treatment Goals Patient/Caregiver Goals Pt goal is: Safely get to point to safely stand. Safely get through stage of healing to do strengthening at home of hamstrings. Balance standing with safety of hamstring tendon secure. Prior Functional Status Baseline Function- ADL's Needs Assist Baseline Function- Mobility Needs Assist Baseline Function- Gait Normal gait, no assistive device. 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 Baseline Function- Recreation/Hobbies 10 mile Hikes, coud drive 6 miles, general stiffness after driving long distances. Current Functional Impairments (Reported) Functional Limitations- ADL's Sitting tolerance - 1 minute before having to shift and move. Functional Limitations- Mobility/Gait Gait with crutches, NWBind RLE , wearing knee brace locked at 45 deg's flex. Functional Limitations- Work/School Retired. Functional Limitations- Recreation/ Not able to participate Hobbies Functional Limitations- Other Increased urination at nighttime (5 times per night). Personal Factors Other Personal Factors That May Effect Protocol limiting R Hip/knee Therapy/Recovery mobility & strengthening due to proper healing, R knee brace locked at 50 deg's flex for wks 0-6. Uncontrolled HBP PT-OP-C Subjective Start: 12/29/21 19:43 Freq: Status: Active Protocol: Document 02/13/22 12:26 SP (Rec: 02/13/22 13:47 SP [id number]) OP-PT Subjective Patient Comments Patient Comments Pt reports has follow up on with ortho and will ask how and if can progress in ROM, WB status and ther ex allowed for if can progress according to protocol. PT-OP-G Mobility & Gait Start: 12/29/21 19:43 Freq: Status: Active Protocol: Document 01/04/22 13:01 LRN (Rec: 01/04/22 18:21 LRN [id number]) OP Gait Assessment Gait Gait Assistance Required: Standby Assistance Distance (Feet) 100 Able to Maintain Weight Bearing Status Yes During Gait Assistive Devices Assistive Device Axillary Crutches Factors Limiting Gait Function Factors Limiting Gait Function Decreased Activity Tolerance, Incoordination,Poor Safety Awareness Comments Gait Comments Pt at time not very steady with gait but was able to self correct. PT-OP-J Posture/Palpation/Skin Start: 12/29/21 19:43 Freq: Status: Active Protocol: Document 02/05/22 13:52 LRN (Rec: 02/05/22 17:13 LRN [id number]) Skin Assessment Other Assessments Skin Assessment Comments Discoloration in the posteromedial and posterolateral aspect of the R knee/thigh from knee to distal 1/3 of thigh. No pain on palpation. PT-OP-K Range of Motion Start: 12/29/21 19:43 Freq: Status: Active Protocol: Document 01/04/22 13:01 LRN (Rec: 01/04/22 18:19 LRN [id number]) Knee Goniometric Range of Motion Knee Right Knee ROM WFL No Comments Deferred Left Knee ROM WFL Yes Patient Position Sitting Comments WNL PT-OP-M Strength Start: 12/29/21 19:43 Freq: Status: Active Protocol: Document 01/04/22 13:01 LRN (Rec: 01/04/22 18:19 LRN [id number]) Knee Strength Knee Manual Muscle Testing Right Comments Deferred per post op protocol Left Flexion (S2) 5 Normal Extension (L3) 5 Normal Ankle/Foot Strength Ankle and Foot Manual Muscle Testing Right Comments Deferred testing due to NWBing post op protocol for wks 0-2. Pt is able to do active ankle pumps; therefore strenght is at least 3/5. Left Comments Generally 5/5 PT-OP-Q Treatments Start: 12/29/21 19:43 Freq: Status: Active Protocol: Document 02/13/22 12:26 SP (Rec: 02/13/22 13:47 SP [id number]) Therapeutic Exercises Supine Exercises HEP Supine Exercise Name QS, AP (immobilizer 30/30 locked donned) Side right Equipment Used folded pillow under knee, thigh rested on pillow Reps/Minutes 3x10 AP, 5 sec hold QS Comments cue slow ankle movement, QS ease/slow no to little foot lift- thigh rested Prone Exercises R knee prone hang Prone Exercise Name Prone lying with foot off plinth- SLOW AROM AP Side left Equipment Used folded pillow under lower leg 18-20 deg knee flexion Reps/Minutes 10 reps x3 Comments Braced doffed in PT, then donned- felt same & more safe secured for home Sidelying Exercises PROM R knee Sidelying Exercise Name R side: No hip flexion: PROM R knee 0-60 deg's Equipment Used Therapist DENISHA CHILD with good sames support to allow safe movement Reps/Minutes 20' Comments Pt juan antonio 73-75 deg before quad/ distal HS Sitting Exercises ankle 4 way Sitting Exercise Name discussed performing at home Side right Equipment Used lvl 3 Reps/Minutes 15 x 2 each Comments cues for ankle only slower pacing PT-OP-T Assessment and Plan Start: 12/29/21 19:43 Freq: Status: Active Protocol: Document 02/13/22 12:26 SP (Rec: 02/13/22 13:47 SP [id number]) Physical Therapy Assessment Goals Four Impairment R Hamstring weakness Impairment Protocol: PROM of knee flexion only (strength 0/5). Short Term Goal (STG) Phase I: PROM R knee, no hip flexion during knee extension. Phase II: Pt able to tolerate beginning hamstring strengthening (avoiding lengthening of hamstring position (hip flex w/knee ext) ). Pt able to perform standing hip ext (knee straight), and preeti/conc strengthening of hamstrings on HEP per protocol safely for pt to feel safe in standing. (02/05/22: Pt tolerates PROM of R knee with no hip flexion - no pain or discomfort). 02/09/22: Pt tolerates PROM of R knee with no hip flexion w/ out pain or discomfort STG Duration 03/29/22 (02/05/22: Progressing) Principal Examiner Goal (LTG) Pt able to strengthen R hamstring in a lengthened hamstring position (per protocol) s/p wks 12-16 and will be able to balance standing with safety of hamstring tendon secure. LTG Duration 04/26/22 Three Impairment Decreased Standing due to limited WBing in RLE Impairment Protocol limits standing to NWBing wks 0-2, TTWBing 2-6 wks. Short Term Goal (STG) Phase I: Pt will be able to walk with crutches and TTWBing through s/p wks 1-6. (01/23/22: Pt ambs with TTWBing and crutches) (02/02/22: End of week 6, pt ambs with TTWBing and crutches ). 02/09/22: End of week 7, pt ambs with TTWBing and crutches. STG Duration 02/15/22 (02/02/22: MET GOAL) Principal Examiner Goal (LTG) Per protocol: Phase II (wks 5 -12) Normal gait, Functional mvmts w/o unloading the RLE while demonstrating good control. SLS greater than 15 secs. Normal 5/5 R hamstring strength w/knee in 90 deg's flexion at least 4/5. Pt will be able to safely stand. LTG Duration 04/26/22 Two Impairment Decreased R knee PROM/AROM Impairment s/p wks 0-6: No active knee ROM Passive R knee flexion limited by brace to 30 deg's flexion. Per protocol: No active R knee ext with flexion of R hip. Short Term Goal (STG) Improve R knee PROM (without hip flex) per rehab protocol. (02/05/22: Passive R Knee ext without hip flexion is 0 deg's ) 02/09/22: Passive R Knee ext w/ out hip flexion is 0 deg STG Duration 02/15/22 Principal Examiner Goal (LTG) Phase II for R knee: R knee 0 -30 deg's. LTG Duration 04/26/22 One Impairment Lacks Self care Impairment Pt under adherence to protocol Short Term Goal (STG) Pt has good understanding phase I-II of self assisted program per rehab protocol. STG Duration 03/29/22 (01/23/21: MET GOAL) Principal Examiner Goal (LTG) Pt has good understanding of phase III self assisted program rehab protocol. LTG Duration 04/26/22 Assessment Summary Assessment Pt will be 8 weeks on 02/14/22. HS reactive during prone PROM eccentric directioning but not painful, just challenge to relax. Reviewed R knee supported on pillow for QS and no SAQ directed protocol at this time. CGT with sidelying PROM R knee brace doffed good demonstration and painfree. Pt continues demonstration TTWB RLE with brace donned as directed. Next visit check progression per Dr feedback: WB, ROM, ther ex with protocol. Physical Therapy Plan Frequency and Duration Frequency of Treatment 2x/Week Plan of Care Start Date 01/04/22 Plan of Care End Date 04/26/22 Therapeutic Interventions Therapeutic Interventions Aquatic Therapy,Balance Training,Gait Training,Home Exercise Program,Manual Therapy,Neuromuscular Re- education,Patient/Caregiver Education,Self-Care/Home Management,Soft Tissue Mobilization,Therapeutic Exercises Modalities Cold Pack/Ice Massage, Ultrasound Next Visit Focus/Plan Next Note Type Treatment Note Next Visit Plan Check for MD clearance to start Phase II protocol next visit. POC: Pt starting Phase II (wks 6-12 ). Monitor scar mobility. Continue core stabilization and upper body strengthening. POC: Follow R Hamstring repair per protocol of Dr. Kolby Locke (see notes section in documentation system). PRECAUTIONS: R knee brace locked at 30 deg's flexion. AVOID hip flexion coupled with knee ext ( hamstring stretch) & AVOID unsafe surfaces and environments. Knee to remain in brace locked at 30 deg's flex (no ext mvmt allowed) until cleared by MD. Cont PROM out of brace with no hip flex during knee ext. Modalities of pain. Post op wk 3-4 pt is allowed pool walking (w/o hip flexion coupled with knee ext): Hip AB, ext and Phase I: wks 1-6. Protective phase. Phase II: wks 6-12. Brace hinge 0-30 deg's, wean off crutches and normalize gait, good control of mvmt including step up/down, squat, partial lunge (<60 deg's knee flex). Precautions: avoid dynamic stretching, no impact or running. Phase III: Usually 3 months after surgery, see protocol.
--- NOTE | 2022-02-16 12:35 | PT.OTN ---
Current Diagnoses Strain of muscle, fascia and tendon of the posterior muscle group at thigh level, right thigh, initial encounter (02/16/22) Physical Therapy Treatment Note PT-OP-A Visit Information Start: 12/29/21 19:43 Freq: Status: Active Protocol: Document 02/19/22 18:18 NBM (Rec: 02/19/22 19:18 NBM [id number]) Out-Patient Physical Therapy Visit Information Visit Information Visit Type Treatment Note Visit Start Time 11:40 Visit Stop Time 12:20 Total Visit Minutes 40 Visit Number 12 Number of MENTAL HEALTH NURSE PRACTITIONER Visits 2 Precautions Precautions PRECAUTIONS: See POC for physician protocol. Protection of the R hamstring tendon repair 12/15/21 at [facility]. Crutches 8 weeks (0-2 wks TTWBing) HTN not well controlled by meds (BP over 130-140/80-90) PT-OP-B Current Condition Start: 12/29/21 19:43 Freq: Status: Active Protocol: Document 01/04/22 13:01 LRN (Rec: 01/04/22 18:15 LRN [id number]) Current Condition History of Current Condition Onset Date 12/25/21 Current Complaints Impossible to get comfortable, not quite stable w/crutches. 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 Pt 10 days post op. Pt fall 09/05/21. Was carrying a heavy bin and slipped going up a step and both feet slipped off the step causing a lot of pain in the posterior thigh. Caused a lot of bruinsing and pain for 2 weeks after the fall. Kept walking for 6 weeks with his [place] and it didn't feel strong or stable; therefore sought further medical assessment. Was referred to [facility] for repair of tore R hamstring tendons off ischial tuberosity. 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 Prior Treatments and Tests Taking intermittently morphine /oxicodone, Tylenol, ASA for post-op blood thinning, Meloxicam as anti-inflammatory and Methylcarbonal (ms relaxor). Future Testing and Treatments Planned Next MD visit 01/09/22. Developmental History Developmental History Used crutches with knee replacement in 2013. Per pt, RLE PMH: meniscus tear - ACL in 1987, Meniscectomy in , Partial TKA 2008, TKA 2013. R Bunionectomy, R ankle tendon repair, 2 shoulder surgeries. Treatment Goals Patient/Caregiver Goals Pt goal is: Safely get to point to safely stand. Safely get through stage of healing to do strengthening at home of hamstrings. Balance standing with safety of hamstring tendon secure. Prior Functional Status Baseline Function- ADL's Needs Assist Baseline Function- Mobility Needs Assist Baseline Function- Gait Normal gait, no assistive device. 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 Baseline Function- Recreation/Hobbies 10 mile Hikes, coud drive 6 miles, general stiffness after driving long distances. Current Functional Impairments (Reported) Functional Limitations- ADL's Sitting tolerance - 1 minute before having to shift and move. Functional Limitations- Mobility/Gait Gait with crutches, NWBind RLE , wearing knee brace locked at 45 deg's flex. Functional Limitations- Work/School Retired. Functional Limitations- Recreation/ Not able to participate Hobbies Functional Limitations- Other Increased urination at nighttime (5 times per night). Personal Factors Other Personal Factors That May Effect Protocol limiting R Hip/knee Therapy/Recovery mobility & strengthening due to proper healing, R knee brace locked at 50 deg's flex for wks 0-6. Uncontrolled HBP PT-OP-C Subjective Start: 12/29/21 19:43 Freq: Status: Active Protocol: Document 02/19/22 18:18 NBM (Rec: 02/19/22 19:18 NBM [id number]) OP-PT Subjective Patient Comments Patient Comments Pt arrives w/out knee brace or AD and reports cleared yesterday for weightbearing as tolerated per surgeon. Pt has one crutch in car but doesn't want to use crutches because his arms are weaker than his legs and get sore. PT-OP-G Mobility & Gait Start: 12/29/21 19:43 Freq: Status: Active Protocol: Document 01/04/22 13:01 LRN (Rec: 01/04/22 18:21 LRN [id number]) OP Gait Assessment Gait Gait Assistance Required: Standby Assistance Distance (Feet) 100 Able to Maintain Weight Bearing Status Yes During Gait Assistive Devices Assistive Device Axillary Crutches Factors Limiting Gait Function Factors Limiting Gait Function Decreased Activity Tolerance, Incoordination,Poor Safety Awareness Comments Gait Comments Pt at time not very steady with gait but was able to self correct. PT-OP-J Posture/Palpation/Skin Start: 12/29/21 19:43 Freq: Status: Active Protocol: Document 02/05/22 13:52 LRN (Rec: 02/05/22 17:13 LRN [id number]) Skin Assessment Other Assessments Skin Assessment Comments Discoloration in the posteromedial and posterolateral aspect of the R knee/thigh from knee to distal 1/3 of thigh. No pain on palpation. PT-OP-K Range of Motion Start: 12/29/21 19:43 Freq: Status: Active Protocol: Document 02/19/22 18:18 NBM (Rec: 02/19/22 19:18 NBM [id number]) Knee Goniometric Range of Motion Knee Right Patient Position Supine Flexion Active (degrees) 105 Comments AROM knee flexion: Pre-treatment: 88 deg Post-treatment: 105 deg PT-OP-M Strength Start: 12/29/21 19:43 Freq: Status: Active Protocol: Document 01/04/22 13:01 LRN (Rec: 01/04/22 18:19 LRN [id number]) Knee Strength Knee Manual Muscle Testing Right Comments Deferred per post op protocol Left Flexion (S2) 5 Normal Extension (L3) 5 Normal Ankle/Foot Strength Ankle and Foot Manual Muscle Testing Right Comments Deferred testing due to NWBing post op protocol for wks 0-2. Pt is able to do active ankle pumps; therefore strenght is at least 3/5. Left Comments Generally 5/5 PT-OP-Q Treatments Start: 12/29/21 19:43 Freq: Status: Active Protocol: Document 02/19/22 18:18 NBM (Rec: 02/19/22 19:18 NB [id number]) Cardio Equipment Recumbent Bicycle Duration (Minutes) 6 Resistance 0 Seat Position 12 Other rocking fwd/bwd initially, then full rotations 3 min fwd/ 3 min bwd (EOS) Therapeutic Exercises Supine Exercises HS curls Supine Exercise Name w/ physioball per protocol Side bilateral Equipment Used green 65cm > red 55cm Reps/Minutes 1 x 10 ea Comments ball size decreased to decrease hip flexion ROM w/ knee extension Bridging Supine Exercise Name added to HEP Side bilateral Reps/Minutes 5 x 5 SH Comments DL only per protocol Heel slides Supine Exercise Name added to HEP Side right Reps/Minutes x10 Comments AROM improved w/ repetition HS set Supine Exercise Name heel dig - added to HEP Side right Comments cues for initial form Neuro Re-Education Treatment Balance Activities Weightshifting Details Fwd/Bwd/Lat, feet apart/feet together, EO/EC Surface firm Equipment corner Reps/Duration 5 min Comments EC very challenging added to HEP w/ corner and chair Self-Care/Home Management Treatment Education Patient Education Home Exercise Program,Joint Protection,Safety Other Education Pt not using crutches d/t UE soreness. Education provided to encourage gait training w/ crutches (including stairs) and to wean from crutches as per protocol. PT-OP-T Assessment and Plan Start: 12/29/21 19:43 Freq: Status: Active Protocol: Document 02/19/22 18:18 NBM (Rec: 02/19/22 19:18 NBM [id number]) Physical Therapy Assessment Goals Four Impairment R Hamstring weakness Impairment Protocol: PROM of knee flexion only (strength 0/5). Short Term Goal (STG) Phase I: PROM R knee, no hip flexion during knee extension. Phase II: Pt able to tolerate beginning hamstring strengthening (avoiding lengthening of hamstring position (hip flex w/knee ext) ). Pt able to perform standing hip ext (knee straight), and preeti/conc strengthening of hamstrings on HEP per protocol safely for pt to feel safe in standing. (02/05/22: Pt tolerates PROM of R knee with no hip flexion - no pain or discomfort). 02/09/22: Pt tolerates PROM of R knee with no hip flexion w/ out pain or discomfort STG Duration 03/29/22 (02/05/22: Progressing) Skilled Nursing Goal (LTG) Pt able to strengthen R hamstring in a lengthened hamstring position (per protocol) s/p wks 12-16 and will be able to balance standing with safety of hamstring tendon secure. LTG Duration 04/26/22 Three Impairment Decreased Standing due to limited WBing in RLE Impairment Protocol limits standing to NWBing wks 0-2, TTWBing 2-6 wks. Short Term Goal (STG) Phase I: Pt will be able to walk with crutches and TTWBing through s/p wks 1-6. (01/23/22: Pt ambs with TTWBing and crutches) (02/02/22: End of week 6, pt ambs with TTWBing and crutches ). 02/09/22: End of week 7, pt ambs with TTWBing and crutches. STG Duration 02/15/22 (02/02/22: MET GOAL) [facility] [facility] Goal (LTG) Per protocol: Phase II (wks 5 -12) Normal gait, Functional mvmts w/o unloading the RLE while demonstrating good control. SLS greater than 15 secs. Normal 5/5 R hamstring strength w/knee in 90 deg's flexion at least 4/5. Pt will be able to safely stand. LTG Duration 04/26/22 Two Impairment Decreased R knee PROM/AROM Impairment s/p wks 0-6: No active knee ROM Passive R knee flexion limited by brace to 30 deg's flexion. Per protocol: No active R knee ext with flexion of R hip. Short Term Goal (STG) Improve R knee PROM (without hip flex) per rehab protocol. (02/05/22: Passive R Knee ext without hip flexion is 0 deg's ) 02/09/22: Passive R Knee ext w/ out hip flexion is 0 deg 02/16/22: AROM R knee flex 105 deg STG Duration 02/15/22 Skilled Nursing Goal (LTG) Phase II for R knee: R knee 0 -30 deg's. LTG Duration 04/26/22 One Impairment Lacks Self care Impairment Pt under adherence to protocol Short Term Goal (STG) Pt has good understanding phase I-II of self custodial program per rehab protocol. STG Duration 03/29/22 (01/23/21: MET GOAL) Skilled Nursing Goal (LTG) Pt has good understanding of phase III self custodial program rehab protocol. LTG Duration 04/26/22 Assessment Summary Assessment Pt arrives today without knee brace or AD and w/ protocol from to progress Phase II. Pt ambulates w/ limp and is encouraged to continue w/ crutches to normalize gait. Pt 's AROM knee flexion improved from 88 deg pre-treatment to 105 deg post-treatment. Added to HEP: HS set, Heel slides, Bridge, and Weightshifting Fwd /Bwd/Lat - HO given. Physical Therapy Plan Next Visit Focus/Plan Next Note Type Treatment Note Next Visit Plan Proceed w/ Phase II protocol received 02/16/22 - see notes. Review HEP. Add standing leg extensions. Progress WBAT weaning from crutches. POC: Pt starting Phase II (wks 6-12 ). Monitor scar mobility. Continue core stabilization and upper body strengthening. POC: Follow R Hamstring repair per protocol of Dr. Kolby Locke (see notes section in documentation system). PRECAUTIONS: R knee brace locked at 30 deg's flexion. AVOID hip flexion coupled with knee ext ( hamstring stretch) & AVOID unsafe surfaces and environments. Knee to remain in brace locked at 30 deg's flex (no ext mvmt allowed) until cleared by MD. Cont PROM out of brace with no hip flex during knee ext. Modalities of pain. Post op wk 3-4 pt is allowed pool walking (w/o hip flexion coupled with knee ext): Hip AB, ext and Phase I: wks 1-6. Protective phase. Phase II: wks 6-12. Brace hinge 0-30 deg's, wean off crutches and normalize gait, good control of mvmt including step up/down, squat, partial lunge (<60 deg's knee flex). Precautions: avoid dynamic stretching, no impact or running. Phase III: Usually 3 months after surgery, see protocol.
--- NOTE | 2022-02-20 13:49 | PT.OTN ---
Addendum entered and electronically signed by Maribell Moulton, DORYS 02/20/22 14:09: Next tx: plank off elbows per pt request next tx if feel able and not over load HS. Recommended not doing elliptical or push ups at this time. Pt verbalized understanding. Original Note: Current Diagnoses Strain of muscle, fascia and tendon of the posterior muscle group at thigh level, right thigh, initial encounter (02/20/22) Physical Therapy Treatment Note PT-OP-A Visit Information Start: 12/29/21 19:43 Freq: Status: Active Protocol: Document 02/20/22 13:07 SP (Rec: 02/20/22 14:02 SP [id number]) Out-Patient Physical Therapy Visit Information Visit Information Visit Type Treatment Note Visit Note states pt DC crutches and brace after ortho appt and hard not preventing from what wants to do. 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 Protection of the R hamstring tendon repair 12/15/21 at Ischial Tuberosity. Crutches 8 weeks (0-2 wks TTWBing) HTN not well controlled by meds (BP over 130-140/80-90) PT-OP-B Current Condition Start: 12/29/21 19:43 Freq: Status: Active Protocol: Document 01/04/22 13:01 LRN (Rec: 01/04/22 18:15 LRN [id number]) Current Condition History of Current Condition Onset Date 12/25/21 Current Complaints Impossible to get comfortable, not quite stable w/crutches. 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 Pt 10 days post op. Pt fall 09/05/21. Was carrying a heavy bin and slipped going up a step and both feet slipped off the step causing a lot of pain in the posterior thigh. Caused a lot of bruinsing and pain for 2 weeks after the fall. Kept walking for 6 weeks with his [place] and it didn't feel strong or stable; therefore sought further medical assessment. Was referred to [facility] for repair of tore R hamstring tendons off ischial tuberosity. 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 Prior Treatments and Tests Taking intermittently morphine /oxicodone, Tylenol, ASA for post-op blood thinning, Meloxicam as anti-inflammatory and Methylcarbonal (ms relaxor). Future Testing and Treatments Planned Next MD visit 01/09/22. Developmental History Developmental History Used crutches with knee replacement in 2013. Per pt, RLE PMH: meniscus tear - ACL in 1987, Meniscectomy in , Partial TKA 2008, TKA 2013. R Bunionectomy, R ankle tendon repair, 2 shoulder surgeries. Treatment Goals Patient/Caregiver Goals Pt goal is: Safely get to point to safely stand. Safely get through stage of healing to do strengthening at home of hamstrings. Balance standing with safety of hamstring tendon secure. Prior Functional Status Baseline Function- ADL's Needs Assist Baseline Function- Mobility Needs Assist Baseline Function- Gait Normal gait, no assistive device. 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 Baseline Function- Recreation/Hobbies 10 mile Hikes, coud drive 6 miles, general stiffness after driving long distances. Current Functional Impairments (Reported) Functional Limitations- ADL's Sitting tolerance - 1 minute before having to shift and move. Functional Limitations- Mobility/Gait Gait with crutches, NWBind RLE , wearing knee brace locked at 45 deg's flex. Functional Limitations- Work/School Retired. Functional Limitations- Recreation/ Not able to participate Hobbies Functional Limitations- Other Increased urination at nighttime (5 times per night). Personal Factors Other Personal Factors That May Effect Protocol limiting R Hip/knee Therapy/Recovery mobility & strengthening due to proper healing, R knee brace locked at 50 deg's flex for wks 0-6. Uncontrolled HBP PT-OP-C Subjective Start: 12/29/21 19:43 Freq: Status: Active Protocol: Document 02/20/22 13:07 SP (Rec: 02/20/22 14:02 SP [id number]) OP-PT Subjective Patient Comments Patient Comments Pt arrives no brace or crutches, states has been performing yrd work cutting branches 5 diameter and feet long with electric extended saw no adverse affects. States is aware of protocol and no pain so trying to do what can within feeling. PT-OP-G Mobility & Gait Start: 12/29/21 19:43 Freq: Status: Active Protocol: Document 01/04/22 13:01 LRN (Rec: 01/04/22 18:21 LRN [id number]) OP Gait Assessment Gait Gait Assistance Required: Standby Assistance Distance (Feet) 100 Able to Maintain Weight Bearing Status Yes During Gait Assistive Devices Assistive Device Axillary Crutches Factors Limiting Gait Function Factors Limiting Gait Function Decreased Activity Tolerance, Incoordination,Poor Safety Awareness Comments Gait Comments Pt at time not very steady with gait but was able to self correct. PT-OP-J Posture/Palpation/Skin Start: 12/29/21 19:43 Freq: Status: Active Protocol: Document 02/05/22 13:52 LRN (Rec: 02/05/22 17:13 LRN [id number]) Skin Assessment Other Assessments Skin Assessment Comments Discoloration in the posteromedial and posterolateral aspect of the R knee/thigh from knee to distal 1/3 of thigh. No pain on palpation. PT-OP-K Range of Motion Start: 12/29/21 19:43 Freq: Status: Active Protocol: Document 02/16/22 11:50 NBM (Rec: 02/19/22 19:18 NBM [id number]) Knee Goniometric Range of Motion Knee Right Patient Position Supine Flexion Active (degrees) 105 Comments AROM knee flexion: Pre-treatment: 88 deg Post-treatment: 105 deg PT-OP-M Strength Start: 12/29/21 19:43 Freq: Status: Active Protocol: Document 01/04/22 13:01 LRN (Rec: 01/04/22 18:19 LRN [id number]) Knee Strength Knee Manual Muscle Testing Right Comments Deferred per post op protocol Left Flexion (S2) 5 Normal Extension (L3) 5 Normal Ankle/Foot Strength Ankle and Foot Manual Muscle Testing Right Comments Deferred testing due to NWBing post op protocol for wks 0-2. Pt is able to do active ankle pumps; therefore strenght is at least 3/5. Left Comments Generally 5/5 PT-OP-Q Treatments Start: 12/29/21 19:43 Freq: Status: Active Protocol: Document 02/20/22 13:07 SP (Rec: 02/20/22 14:02 SP [id number]) Cardio Equipment Bicycle (Upright) Duration (Minutes) 7 Resistance 4 Seat Position 11 Other forward 90 RPM, 3.34 miles Therapeutic Exercises Supine Exercises Bridging Supine Exercise Name Reviewed HEP Side bilateral Reps/Minutes 10 reps, 5 sec hold Comments DL only per protocol Heel slides Supine Exercise Name reviewed HEP Side right Reps/Minutes x10 Comments AROM improved w/ repetition with DF flexion HS set Supine Exercise Name heel dig - reviewed HEP Side right Reps/Minutes 5 sec hold x5 Comments cues for HS fac not anterior knee recruitment/irritation- better response Standing Exercises modified Lunges Standing Exercise Name added to HEP Side bilateral Resistance AROM Equipment Used rail support Reps/Minutes x10 each LE Comments >60 deg knee flexion, painfree , cued space between BLE mini squat Standing Exercise Name >60 deg knee flexion: added to HEP Resistance AROM w/ contact rail Reps/Minutes 2x5 reps Comments cued hip hinge then knee flexion Self-Care/Home Management Treatment Education Patient Education Home Exercise Program,Joint Protection,Safety Other Education Much education on adhering to protocol for activities allowed, progress over this week wean crutches and walk AROM non resistive. No heavy uneven surfaces activities as yrd work, aerobic elliptical, uneven hikes at this time until 12 weeks start ease into (03/17/22). Pt and verbalized understanding for safety of repair. Suggested calling a diver's tender for assistance at this time for yrd work support. PT-OP-T Assessment and Plan Start: 12/29/21 19:43 Freq: Status: Active Protocol: Document 02/20/22 13:07 SP (Rec: 02/20/22 14:02 SP [id number]) Physical Therapy Assessment Goals Four Impairment R Hamstring weakness Impairment Protocol: PROM of knee flexion only (strength 0/5). Short Term Goal (STG) Phase I: PROM R knee, no hip flexion during knee extension. Phase II: Pt able to tolerate beginning hamstring strengthening (avoiding lengthening of hamstring position (hip flex w/knee ext) ). Pt able to perform standing hip ext (knee straight), and preeti/conc strengthening of hamstrings on [facility] per protocol safely for pt to feel safe in standing. (02/05/22: Pt tolerates PROM of R knee with no hip flexion - no pain or discomfort). 02/09/22: Pt tolerates PROM of R knee with no hip flexion w/ out pain or discomfort 02/20/22: phase II, added mini lunge and squat at rail knee flexion ROM >60 deg. STG Duration 03/29/22 (02/20/22: Progressing) Retirement Goal (LTG) Pt able to strengthen R hamstring in a lengthened hamstring position (per protocol) s/p wks 12-16 and will be able to balance standing with safety of hamstring tendon secure. 02/20/22: Education on Phase III not until 03/17/22. LTG Duration 04/26/22 education 03/17 start. Three Impairment Decreased Standing due to limited WBing in RLE Impairment Protocol limits standing to NWBing wks 0-2, TTWBing 2-6 wks. Short Term Goal (STG) Phase I: Pt will be able to walk with crutches and TTWBing through s/p wks 1-6. (01/23/22: Pt ambs with TTWBing and crutches) (02/02/22: End of week 6, pt ambs with TTWBing and crutches ). 02/09/22: End of week 7, pt ambs with TTWBing and crutches. STG Duration 02/15/22 (02/02/22: MET GOAL) Retirement Goal (LTG) Per protocol: Phase II (wks 5 -12) Normal gait, Functional mvmts w/o unloading the RLE while demonstrating good control. SLS greater than 15 secs. Normal 5/5 R hamstring strength w/knee in 90 deg's flexion at least 4/5. Pt will be able to safely stand. LTG Duration 04/26/22 Two Impairment Decreased R knee PROM/AROM Impairment s/p wks 0-6: No active knee ROM Passive R knee flexion limited by brace to 30 deg's flexion. Per protocol: No active R knee ext with flexion of R hip. Short Term Goal (STG) Improve R knee PROM (without hip flex) per rehab protocol. (02/05/22: Passive R Knee ext without hip flexion is 0 deg's ) 02/09/22: Passive R Knee ext w/ out hip flexion is 0 deg 02/16/22: AROM R knee flex 105 deg STG Duration 02/15/22 Guest Services Associate Goal (LTG) Phase II for R knee: R knee 0 -30 deg's. LTG Duration 04/26/22 One Impairment Lacks Self care Impairment Pt under adherence to protocol Short Term Goal (STG) Pt has good understanding phase I-II of self prison program per rehab protocol. STG Duration 03/29/22 (01/23/21: MET GOAL) Guest Services Associate Goal (LTG) Pt has good understanding of phase III self prison program rehab protocol. 02/20/22: education to adhere to not performing phase III activities until 03/17/22 then progress slowly for healing. LTG Duration 04/26/22 progressin02/20/22 Assessment Summary Assessment Pt not compliant with no resistive activities standing, eg yard work cutting down and carrying/ dragging feet long and 5 + diameter branches recently with no adverse affects. Ed for activities allowed PHase II. CUed for gentle HS engagement with HEP review to decrease anterior irritation recruitment. Initiated mini lunges and squat >60 deg knee flexion per protocol AROM with contact rail. PRovided HOs. Pt and verbalized understanding and self corrected with cues. Physical Therapy Plan Frequency and Duration Frequency of Treatment 2x/Week Plan of Care Start Date 01/04/22 Plan of Care End Date 04/26/22 Therapeutic Interventions Therapeutic Interventions Aquatic Therapy,Balance Training,Gait Training,Home Exercise Program,Manual Therapy,Neuromuscular Re- education,Patient/Caregiver Education,Self-Care/Home Management,Soft Tissue Mobilization,Therapeutic Exercises Modalities Cold Pack/Ice Massage, Ultrasound Next Visit Focus/Plan Next Note Type Treatment Note Next Visit Plan Proceeded w/ Phase II protocol today 6-12 weeks. Recheck activities and HEP added lunges, squat >60 deg knees. Add standing leg extensions. Monitor scar mobility. Continue core stabilization and upper body strengthening. POC: Follow R Hamstring repair per protocol of Dr. Kolby Locke (see notes section in documentation system). PRECAUTIONS: R knee brace locked at 30 deg's flexion. AVOID hip flexion coupled with knee ext ( hamstring stretch) & AVOID unsafe surfaces and environments. Knee to remain in brace locked at 30 deg's flex (no ext mvmt allowed) until cleared by . Cont PROM out of brace with no hip flex during knee ext. Modalities of pain. Post op wk 3-4 pt is allowed pool walking (w/o hip flexion coupled with knee ext): Hip AB, ext and Phase I: wks 1-6. Protective phase. Phase II: wks 6-12. Brace hinge 0-30 deg's, wean off crutches and normalize gait, good control of mvmt including step up/down, squat, partial lunge (<60 deg's knee flex). Precautions: avoid dynamic stretching, no impact or running. Phase III: Usually 3 months after surgery, see protocol.
--- NOTE | 2022-02-22 16:23 | PT.OTN ---
Current Diagnoses Strain of muscle, fascia and tendon of the posterior muscle group at thigh level, right thigh, initial encounter (02/22/22) Physical Therapy Treatment Note PT-OP-A Visit Information Start: 12/29/21 19:43 Freq: Status: Active Protocol: Document 02/22/22 14:38 LRN (Rec: 02/22/22 16:23 LRN [id number]) Out-Patient Physical Therapy Visit Information Visit Information Visit Type Treatment Note Visit Start Time 14:38 Visit Stop Time 15:19 Total Visit Minutes 41 Visit Number 14 Precautions Precautions PRECAUTIONS PHASE II: Avoid dynamic stretching, Avoid loading the hip at deep flexion angles, No impact or running. PT-OP-B Current Condition Start: 12/29/21 19:43 Freq: Status: Active Protocol: Document 01/04/22 13:01 LRN (Rec: 01/04/22 18:15 LRN [id number]) Current Condition History of Current Condition Onset Date 12/25/21 Current Complaints Impossible to get comfortable, not quite stable w/crutches. 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 Pt 10 days post op. Pt fall 09/05/21. Was carrying a heavy bin and slipped going up a step and both feet slipped off the step causing a lot of pain in the posterior thigh. Caused a lot of bruinsing and pain for 2 weeks after the fall. Kept walking for 6 weeks with his [place] and it didn't feel strong or stable; therefore sought further medical assessment. Was referred to [place] for repair of tore R hamstring tendons off ischial tuberosity. 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 Prior Treatments and Tests Taking intermittently morphine /oxicodone, Tylenol, ASA for post-op blood thinning, Meloxicam as anti-inflammatory and Methylcarbonal (ms relaxor). Future Testing and Treatments Planned Next MD visit 01/09/22. Developmental History Developmental History Used crutches with knee replacement in 2013. Per pt, RLE PMH: meniscus tear - ACL in 1987, Meniscectomy in , Partial TKA 2008, TKA 2013. R Bunionectomy, R ankle tendon repair, 2 shoulder surgeries. Treatment Goals Patient/Caregiver Goals Pt goal is: Safely get to point to safely stand. Safely get through stage of healing to do strengthening at home of hamstrings. Balance standing with safety of hamstring tendon secure. Prior Functional Status Baseline Function- ADL's Needs Assist Baseline Function- Mobility Needs Assist Baseline Function- Gait Normal gait, no assistive device. 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 Baseline Function- Recreation/Hobbies 10 mile Hikes, coud drive 6 miles, general stiffness after driving long distances. Current Functional Impairments (Reported) Functional Limitations- ADL's Sitting tolerance - 1 minute before having to shift and move. Functional Limitations- Mobility/Gait Gait with crutches, NWBind RLE , wearing knee brace locked at 45 deg's flex. Functional Limitations- Work/School Retired. Functional Limitations- Recreation/ Not able to participate Hobbies Functional Limitations- Other Increased urination at nighttime (5 times per night). Personal Factors Other Personal Factors That May Effect Protocol limiting R Hip/knee Therapy/Recovery mobility & strengthening due to proper healing, R knee brace locked at 50 deg's flex for wks 0-6. Uncontrolled HBP PT-OP-C Subjective Start: 12/29/21 19:43 Freq: Status: Active Protocol: Document 02/22/22 14:38 LRN (Rec: 02/22/22 16:23 LRN [id number]) OP-PT Subjective Patient Comments Patient Comments Pt is 9 wks post op. Pt states MD told him to remove the brace and wean off the crutches. PT-OP-G Mobility & Gait Start: 12/29/21 19:43 Freq: Status: Active Protocol: Document 01/04/22 13:01 LRN (Rec: 01/04/22 18:21 LRN [id number]) OP Gait Assessment Gait Gait Assistance Required: Standby Assistance Distance (Feet) 100 Able to Maintain Weight Bearing Status Yes During Gait Assistive Devices Assistive Device Axillary Crutches Factors Limiting Gait Function Factors Limiting Gait Function Decreased Activity Tolerance, Incoordination,Poor Safety Awareness Comments Gait Comments Pt at time not very steady with gait but was able to self correct. PT-OP-J Posture/Palpation/Skin Start: 12/29/21 19:43 Freq: Status: Active Protocol: Document 02/05/22 13:52 LRN (Rec: 02/05/22 17:13 LRN [id number]) Skin Assessment Other Assessments Skin Assessment Comments Discoloration in the posteromedial and posterolateral aspect of the R knee/thigh from knee to distal 1/3 of thigh. No pain on palpation. PT-OP-K Range of Motion Start: 12/29/21 19:43 Freq: Status: Active Protocol: Document 02/16/22 11:50 NBM (Rec: 02/19/22 19:18 NBM [id number]) Knee Goniometric Range of Motion Knee Right Patient Position Supine Flexion Active (degrees) 105 Comments AROM knee flexion: Pre-treatment: 88 deg Post-treatment: 105 deg PT-OP-M Strength Start: 12/29/21 19:43 Freq: Status: Active Protocol: Document 01/04/22 13:01 LRN (Rec: 01/04/22 18:19 LRN [id number]) Knee Strength Knee Manual Muscle Testing Right Comments Deferred per post op protocol Left Flexion (S2) 5 Normal Extension (L3) 5 Normal Ankle/Foot Strength Ankle and Foot Manual Muscle Testing Right Comments Deferred testing due to NWBing post op protocol for wks 0-2. Pt is able to do active ankle pumps; therefore strenght is at least 3/5. Left Comments Generally 5/5 PT-OP-Q Treatments Start: 12/29/21 19:43 Freq: Status: Active Protocol: Document 02/22/22 14:38 LRN (Rec: 02/22/22 16:23 LRN [id number]) Cardio Equipment Bicycle (Upright) Duration (Minutes) 8 Resistance 4 Seat Position 11 Other forward 90 RPM, 4.42 miles Therapeutic Exercises Supine Exercises SLR Supine Exercise Name SLR 30-45 deg's lift: Foot 12 & 2 O'Clock Side right Reps/Minutes 10x each Heel slides Supine Exercise Name Heel slide Side right Reps/Minutes 10x 2 Comments 2nd set MWN applying medial glide to patella. Prone Exercises Quad stretch Prone Exercise Name C/R of Quad stretch into passive knee flex Side right Knee flex Prone Exercise Name Conc knee flex/Assistive return Side right Reps/Minutes 10x 2 R knee prone hang Prone Exercise Name Knee ext stretch w/prone hang. Side right Equipment Used Towel roll above knee for patellar comfort Sitting Exercises QS Sitting Exercise Name Quad ext stretch Side right Comments Pt knee ext ROM is 0 deg's PT-OP-T Assessment and Plan Start: 12/29/21 19:43 Freq: Status: Active Protocol: Document 02/22/22 14:38 LRN (Rec: 02/22/22 16:23 LRN [id number]) Physical Therapy Assessment Goals Four Impairment R Hamstring weakness Impairment Protocol: PROM of knee flexion only (strength 0/5). Short Term Goal (STG) Phase I: PROM R knee, no hip flexion during knee extension. Phase II: Pt able to tolerate beginning hamstring strengthening (avoiding lengthening of hamstring position (hip flex w/knee ext) ). Pt able to perform standing hip ext (knee straight), and preeti/conc strengthening of hamstrings on HEP per protocol safely for pt to feel safe in standing. (02/05/22: Pt tolerates PROM of R knee with no hip flexion - no pain or discomfort). 02/09/22: Pt tolerates PROM of R knee with no hip flexion w/ out pain or discomfort 02/20/22: phase II, added mini lunge and squat at rail knee flexion ROM >60 deg. STG Duration 03/29/22 (02/20/22: Progressing, in phase II) Intermediate Goal (LTG) Pt able to strengthen R hamstring in a lengthened hamstring position (per protocol) s/p wks 12-16 and will be able to balance standing with safety of hamstring tendon secure. 02/20/22: Education on Phase III not until 03/17/22. LTG Duration 04/26/22 education 03/17 start. Three Impairment Decreased Standing due to limited WBing in RLE Impairment Protocol limits standing to NWBing wks 0-2, TTWBing 2-6 wks. Short Term Goal (STG) Phase I: Pt will be able to walk with crutches and TTWBing through s/p wks 1-6. (01/23/22: Pt ambs with TTWBing and crutches) (02/02/22: End of week 6, pt ambs with TTWBing and crutches ). 02/09/22: End of week 7, pt ambs with TTWBing and crutches. STG Duration 02/15/22 (02/02/22: MET GOAL) Hat Model Goal (LTG) Per protocol: Phase II (wks 5 -12) Normal gait, Functional mvmts w/o unloading the RLE while demonstrating good control. SLS greater than 15 secs. Normal 5/5 R hamstring strength w/knee in 90 deg's flexion at least 4/5. Pt will be able to safely stand. (02/22/22: Pt ambulates without AD, wide gait deviations with gait). LTG Duration 04/26/22 (02/22/22: Progressing Two Impairment Decreased R knee PROM/AROM Impairment s/p wks 0-6: No active knee ROM Passive R knee flexion limited by brace to 30 deg's flexion. Per protocol: No active R knee ext with flexion of R hip. Short Term Goal (STG) Improve R knee PROM (without hip flex) per rehab protocol. (02/05/22: Passive R Knee ext without hip flexion is 0 deg's ) 02/09/22: Passive R Knee ext w/ out hip flexion is 0 deg 02/16/22: AROM R knee flex 105 deg STG Duration 02/15/22 Hat Model Goal (LTG) Phase II for R knee: R knee 0 -30 deg's. LTG Duration 04/26/22 One Impairment Lacks Self care Impairment Pt under adherence to protocol Short Term Goal (STG) Pt has good understanding phase I-II of self long-term program per rehab protocol. STG Duration 03/29/22 (01/23/21: MET GOAL) Hat Model Goal (LTG) Pt has good understanding of phase III self long-term program rehab protocol. 02/20/22: education to adhere to not performing phase III activities until 03/17/22 then progress slowly for healing. LTG Duration 04/26/22 progressin02/20/22 Assessment Summary Assessment Pt will be 9 wks po in 4 days according to spouse. Pt is aggressive with ex and has high pain tolerance. He must be repeatedly advised to not exer into pain. Pt fatigued with hamstring exercise (AROM) . He is having R patellar knee pain due to poor medial quad strength. He demonstrates notable gait deviation side to side that the pt states is normal for him, but may be accentuated due to decreased balance. Pt choosing to ice knee at home. Physical Therapy Plan Frequency and Duration Frequency of Treatment 2x/Week Plan of Care Start Date 01/04/22 Plan of Care End Date 04/26/22 Next Visit Focus/Plan Next Note Type Treatment Note Next Visit Plan Proceeded w/ Phase II of new protocol (6-12 weeks). Recheck activities: Prone knee flex to 90 deg's with assist on return (hold ecc strengthening), lunges, squat <60 deg knees. Add standing leg extensions, double leg balance & when ready gait training. Monitor scar mobility. Per protocol core stabilization and hip (AB, ext ) strengthening. POC: Follow R Hamstring repair per protocol of Dr. Kolby Locke (see notes section in documentation system). See PRECAUTIONS (phase II) in Visit Information. Phase I: wks 1-6. Protective phase. Phase II: wks 6-12 (see new protocol). p/o 6-8 wks: Unlock hinged knee brace to 30 deg's flex, then 0 deg's flex /ext., wean off crutches and normalize gait, good control of mvmt including step up/down , squat, partial lunge (<60 deg's knee flex). Precautions: avoid dynamic stretching, no impact or running. Phase III: Usually 3 months after surgery, see protocol.
--- NOTE | 2022-02-27 16:42 | PT.OTN ---
Current Diagnoses Strain of muscle, fascia and tendon of the posterior muscle group at thigh level, right thigh, initial encounter (02/27/22) Physical Therapy Treatment Note PT-OP-A Visit Information Start: 12/29/21 19:43 Freq: Status: Active Protocol: Document 02/27/22 09:50 AMH (Rec: 02/27/22 10:35 AMH [id number]) Out-Patient Physical Therapy Visit Information Visit Information Visit Type Treatment Note Visit Start Time 09:50 Visit Stop Time 10:30 Total Visit Minutes 40 Visit Number 15 PT-OP-B Current Condition Start: 12/29/21 19:43 Freq: Status: Active Protocol: Document 01/04/22 13:01 LRN (Rec: 01/04/22 18:15 LRN [id number]) Current Condition History of Current Condition Onset Date 12/25/21 Current Complaints Impossible to get comfortable, not quite stable w/crutches. 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 Pt 10 days post op. Pt fall 09/05/21. Was carrying a heavy bin and slipped going up a step and both feet slipped off the step causing a lot of pain in the posterior thigh. Caused a lot of bruinsing and pain for 2 weeks after the fall. Kept walking for 6 weeks with his [place] and it didn't feel strong or stable; therefore sought further medical assessment. Was referred to [facility] for repair of tore R hamstring tendons off ischial tuberosity. 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 Prior Treatments and Tests Taking intermittently morphine /oxicodone, Tylenol, ASA for post-op blood thinning, Meloxicam as anti-inflammatory and Methylcarbonal (ms relaxor). Future Testing and Treatments Planned Next MD visit 01/09/22. Developmental History Developmental History Used crutches with knee replacement in 2013. Per pt, RLE PMH: meniscus tear - ACL in 1987, Meniscectomy in , Partial TKA 2008, TKA 2013. R Bunionectomy, R ankle tendon repair, 2 shoulder surgeries. Treatment Goals Patient/Caregiver Goals Pt goal is: Safely get to point to safely stand. Safely get through stage of healing to do strengthening at home of hamstrings. Balance standing with safety of hamstring tendon secure. Prior Functional Status Baseline Function- ADL's Needs Assist Baseline Function- Mobility Needs Assist Baseline Function- Gait Normal gait, no assistive device. 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 Baseline Function- Recreation/Hobbies 10 mile Hikes, coud drive 6 miles, general stiffness after driving long distances. Current Functional Impairments (Reported) Functional Limitations- ADL's Sitting tolerance - 1 minute before having to shift and move. Functional Limitations- Mobility/Gait Gait with crutches, NWBind RLE , wearing knee brace locked at 45 deg's flex. Functional Limitations- Work/School Retired. Functional Limitations- Recreation/ Not able to participate Hobbies Functional Limitations- Other Increased urination at nighttime (5 times per night). Personal Factors Other Personal Factors That May Effect Protocol limiting R Hip/knee Therapy/Recovery mobility & strengthening due to proper healing, R knee brace locked at 50 deg's flex for wks 0-6. Uncontrolled HBP PT-OP-C Subjective Start: 12/29/21 19:43 Freq: Status: Active Protocol: Document 02/27/22 09:50 AMH (Rec: 02/27/22 10:35 AMH [id number]) OP-PT Subjective Patient Comments Patient Comments pt notes he continues to feel pain in the front of his knee, he notes that even after ice the front of the knee feels hot. PT-OP-G Mobility & Gait Start: 12/29/21 19:43 Freq: Status: Active Protocol: Document 01/04/22 13:01 LRN (Rec: 01/04/22 18:21 LRN [id number]) OP Gait Assessment Gait Gait Assistance Required: Standby Assistance Distance (Feet) 100 Able to Maintain Weight Bearing Status Yes During Gait Assistive Devices Assistive Device Axillary Crutches Factors Limiting Gait Function Factors Limiting Gait Function Decreased Activity Tolerance, Incoordination,Poor Safety Awareness Comments Gait Comments Pt at time not very steady with gait but was able to self correct. PT-OP-J Posture/Palpation/Skin Start: 12/29/21 19:43 Freq: Status: Active Protocol: Document 02/05/22 13:52 LRN (Rec: 02/05/22 17:13 LRN [id number]) Skin Assessment Other Assessments Skin Assessment Comments Discoloration in the posteromedial and posterolateral aspect of the R knee/thigh from knee to distal 1/3 of thigh. No pain on palpation. PT-OP-K Range of Motion Start: 12/29/21 19:43 Freq: Status: Active Protocol: Document 02/16/22 11:50 NBM (Rec: 02/19/22 19:18 NBM [id number]) Knee Goniometric Range of Motion Knee Right Patient Position Supine Flexion Active (degrees) 105 Comments AROM knee flexion: Pre-treatment: 88 deg Post-treatment: 105 deg PT-OP-M Strength Start: 12/29/21 19:43 Freq: Status: Active Protocol: Document 01/04/22 13:01 LRN (Rec: 01/04/22 18:19 LRN [id number]) Knee Strength Knee Manual Muscle Testing Right Comments Deferred per post op protocol Left Flexion (S2) 5 Normal Extension (L3) 5 Normal Ankle/Foot Strength Ankle and Foot Manual Muscle Testing Right Comments Deferred testing due to NWBing post op protocol for wks 0-2. Pt is able to do active ankle pumps; therefore strenght is at least 3/5. Left Comments Generally 5/5 PT-OP-Q Treatments Start: 12/29/21 19:43 Freq: Status: Active Protocol: Document 02/27/22 09:50 AMH (Rec: 02/27/22 10:35 AMH [id number]) Cardio Equipment Bicycle (Upright) Duration (Minutes) 8 Resistance 4 Seat Position 11 Other forward 90 RPM, 4.42 miles Therapeutic Exercises Supine Exercises SLR Supine Exercise Name SLR 30-45 deg's lift: Foot 12 & 2 O'Clock Side right Reps/Minutes 2 x10 each Bridging Supine Exercise Name Reviewed HEP Side bilateral Reps/Minutes 10 reps, 5 sec hold Comments DL only per protocol Prone Exercises Quad stretch Prone Exercise Name C/R of Quad stretch into passive knee flex Side right Knee flex Prone Exercise Name Conc knee flex/Assistive return Side right Reps/Minutes 10x 2 R knee prone hang Prone Exercise Name Knee ext stretch w/prone hang. Side right Equipment Used Towel roll above knee for patellar comfort Standing Exercises sidesteps with theraband Reps/Minutes 4 xms down and back at parallel bars Comments pt in mini squat position modified Lunges Standing Exercise Name added to HEP Side bilateral Resistance AROM Equipment Used rail support Reps/Minutes x10 each LE Comments >60 deg knee flexion, painfree , cued space between BLE mini squat Standing Exercise Name >60 deg knee flexion: added to HEP Resistance AROM w/ contact rail Reps/Minutes 2x5 reps Comments cued hip hinge then knee flexion Neuro Re-Education Treatment Balance Activities single leg balance Reps/Duration 2 x 30 seconds each PT-OP-T Assessment and Plan Start: 12/29/21 19:43 Freq: Status: Active Protocol: Document 02/27/22 09:50 AMH (Rec: 02/27/22 10:35 AMH [id number]) Physical Therapy Assessment Assessment Summary Assessment pt was advised to not push into pain and to ice at home. He is still experiencing anterior knee pain. Added in SLS balance exercises and lateral steps with theraband. Physical Therapy Plan Frequency and Duration Frequency of Treatment 2x/Week Plan of Care Start Date 01/04/22 Plan of Care End Date 04/26/22 Therapeutic Interventions Therapeutic Interventions Aquatic Therapy,Balance Training,Gait Training,Home Exercise Program,Manual Therapy,Neuromuscular Re- education,Patient/Caregiver Education,Self-Care/Home Management,Soft Tissue Mobilization,Therapeutic Exercises Modalities Cold Pack/Ice Massage, Ultrasound Next Visit Focus/Plan Next Note Type Treatment Note Next Visit Plan Proceeded w/ Phase II of new protocol (6-12 weeks). Recheck activities: Prone knee flex to 90 deg's with assist on return (hold ecc strengthening), lunges, squat <60 deg knees. Add standing leg extensions, double leg balance & when ready gait training. Monitor scar mobility. Per protocol core stabilization and hip (AB, ext ) strengthening. POC: Follow R Hamstring repair per protocol of Dr. Kolby Locke (see notes section in documentation system). See PRECAUTIONS (phase II) in Visit Information. Phase I: wks 1-6. Protective phase. Phase II: wks 6-12 (see new protocol). p/o 6-8 wks: Unlock hinged knee brace to 30 deg's flex, then 0 deg's flex /ext., wean off crutches and normalize gait, good control of mvmt including step up/down , squat, partial lunge (<60 deg's knee flex). Precautions: avoid dynamic stretching, no impact or running. Phase III: Usually 3 months after surgery, see protocol.
--- NOTE | 2022-02-27 17:52 | PT-OP ANOTE ---
Spoke with Gabriel, Inspector [employer] briefly to request clarification of protocol, but she was heading to a meeting and was not able to provide answer. She states she would have someone call. Clinic phone number was given.
--- NOTE | 2022-03-02 15:42 | PT-OP ANOTE ---
Spoke with Nerissa SAAVEDRA at Dr. Kolby Locke MD office ([phone]) and asked for clarification of protocol that pt was issued at his last physician visit. Nerissa states the protocol for partial lunge was for operative leg lunging fwd to not exceed 60 deg's of knee flexion. Other questionable areas in the protocol will be addressed and Nerissa states she will send an updated, clarifying protocol on Saturday (03/05/22.
--- NOTE | 2022-03-02 16:00 | PT.OTN ---
Current Diagnoses Strain of muscle, fascia and tendon of the posterior muscle group at thigh level, right thigh, initial encounter (03/02/22) Physical Therapy Treatment Note PT-OP-A Visit Information Start: 12/29/21 19:43 Freq: Status: Active Protocol: Document 03/02/22 14:42 NBM (Rec: 03/02/22 16:49 NBM [id number]) Out-Patient Physical Therapy Visit Information Visit Information Visit Type Treatment Note Visit Start Time 14:38 Visit Stop Time 15:32 Total Visit Minutes 54 Visit Number 16 PT-OP-B Current Condition Start: 12/29/21 19:43 Freq: Status: Active Protocol: Document 01/04/22 13:01 LRN (Rec: 01/04/22 18:15 LRN [id number]) Current Condition History of Current Condition Onset Date 12/25/21 Current Complaints Impossible to get comfortable, not quite stable w/crutches. 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 Pt 10 days post op. Pt fall 09/05/21. Was carrying a heavy bin and slipped going up a step and both feet slipped off the step causing a lot of pain in the posterior thigh. Caused a lot of bruinsing and pain for 2 weeks after the fall. Kept walking for 6 weeks with his [place] and it didn't feel strong or stable; therefore sought further medical assessment. Was referred to [facility] for repair of tore R hamstring tendons off ischial tuberosity. 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 Prior Treatments and Tests Taking intermittently morphine /oxicodone, Tylenol, ASA for post-op blood thinning, Meloxicam as anti-inflammatory and Methylcarbonal (ms relaxor). Future Testing and Treatments Planned Next MD visit 01/09/22. Developmental History Developmental History Used crutches with knee replacement in 2013. Per pt, RLE PMH: meniscus tear - ACL in 1987, Meniscectomy in , Partial TKA 2008, TKA 2013. R Bunionectomy, R ankle tendon repair, 2 shoulder surgeries. Treatment Goals Patient/Caregiver Goals Pt goal is: Safely get to point to safely stand. Safely get through stage of healing to do strengthening at home of hamstrings. Balance standing with safety of hamstring tendon secure. Prior Functional Status Baseline Function- ADL's Needs Assist Baseline Function- Mobility Needs Assist Baseline Function- Gait Normal gait, no assistive device. 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 Baseline Function- Recreation/Hobbies 10 mile Hikes, coud drive 6 miles, general stiffness after driving long distances. Current Functional Impairments (Reported) Functional Limitations- ADL's Sitting tolerance - 1 minute before having to shift and move. Functional Limitations- Mobility/Gait Gait with crutches, NWBind RLE , wearing knee brace locked at 45 deg's flex. Functional Limitations- Work/School Retired. Functional Limitations- Recreation/ Not able to participate Hobbies Functional Limitations- Other Increased urination at nighttime (5 times per night). Personal Factors Other Personal Factors That May Effect Protocol limiting R Hip/knee Therapy/Recovery mobility & strengthening due to proper healing, R knee brace locked at 50 deg's flex for wks 0-6. Uncontrolled HBP PT-OP-C Subjective Start: 12/29/21 19:43 Freq: Status: Active Protocol: Document 03/02/22 14:42 NBM (Rec: 03/02/22 16:49 NBM [id number]) OP-PT Subjective Patient Comments Patient Comments Pt reports he is doing well but acknowledges spouse's report that he had a lot of knee pain and swelling after going on a flat walk. His knee hurts especially after he's been sitting for a while and then stands up. Pt states using his bike has helped his knee pain in the past so he wants to ride his bike. PT-OP-G Mobility & Gait Start: 12/29/21 19:43 Freq: Status: Active Protocol: Document 01/04/22 13:01 LRN (Rec: 01/04/22 18:21 LRN [id number]) OP Gait Assessment Gait Gait Assistance Required: Standby Assistance Distance (Feet) 100 Able to Maintain Weight Bearing Status Yes During Gait Assistive Devices Assistive Device Axillary Crutches Factors Limiting Gait Function Factors Limiting Gait Function Decreased Activity Tolerance, Incoordination,Poor Safety Awareness Comments Gait Comments Pt at time not very steady with gait but was able to self correct. PT-OP-J Posture/Palpation/Skin Start: 12/29/21 19:43 Freq: Status: Active Protocol: Document 02/05/22 13:52 LRN (Rec: 02/05/22 17:13 LRN [id number]) Skin Assessment Other Assessments Skin Assessment Comments Discoloration in the posteromedial and posterolateral aspect of the R knee/thigh from knee to distal 1/3 of thigh. No pain on palpation. PT-OP-K Range of Motion Start: 12/29/21 19:43 Freq: Status: Active Protocol: Document 02/16/22 11:50 NBM (Rec: 02/19/22 19:18 NBM [id number]) Knee Goniometric Range of Motion Knee Right Patient Position Supine Flexion Active (degrees) 105 Comments AROM knee flexion: Pre-treatment: 88 deg Post-treatment: 105 deg PT-OP-M Strength Start: 12/29/21 19:43 Freq: Status: Active Protocol: Document 01/04/22 13:01 LRN (Rec: 01/04/22 18:19 LRN [id number]) Knee Strength Knee Manual Muscle Testing Right Comments Deferred per post op protocol Left Flexion (S2) 5 Normal Extension (L3) 5 Normal Ankle/Foot Strength Ankle and Foot Manual Muscle Testing Right Comments Deferred testing due to NWBing post op protocol for wks 0-2. Pt is able to do active ankle pumps; therefore strenght is at least 3/5. Left Comments Generally 5/5 PT-OP-Q Treatments Start: 12/29/21 19:43 Freq: Status: Active Protocol: Document 03/02/22 14:42 NBM (Rec: 03/02/22 16:49 NB [id number]) Therapeutic Exercises Standing Exercises sidesteps with theraband Reps/Minutes 4 xms down and back at parallel bars Comments pt in mini squat position modified Lunges Side bilateral Resistance AROM Equipment Used rail support Reps/Minutes x10 each LE Comments >60 deg knee flexion, painfree , cued space between BLE mini squat Standing Exercise Name >60 deg knee flexion Resistance AROM w/ contact rail Reps/Minutes 2x5 reps Comments cued hip hinge then knee flexion Manual Therapy Treatment Soft Tissue Mobilization Hamstring Body Location R HS Mobilization Type Oscillations,Rolling,Sustained Pressure Intensity/Depth mod Body Position Prone Comments proximal HS focus. Self-Care/Home Management Treatment Education Patient Education Body Mechanics,Home Exercise Program,Joint Protection, Safety Other Education Pt is cautioned not to push into pain and to use ice at home. Pt states using his bike has helped his knee pain in the past so he wants to ride his bike - pt is cautioned about maintaining precautions for hip flexion w/ knee extension on bike as with a sudden stop, and pt is educated that a lower bike seat increases the knee angle. Pt equates pain with muscle weakness - discussed pain as an indicator of risk of injury , and endurance vs strength training. PT-OP-T Assessment and Plan Start: 12/29/21 19:43 Freq: Status: Active Protocol: Document 03/02/22 14:42 NBM (Rec: 03/02/22 16:49 NBM [id number]) Physical Therapy Assessment Goals Four Impairment R Hamstring weakness Impairment Protocol: PROM of knee flexion only (strength 0/5). Short Term Goal (STG) Phase I: PROM R knee, no hip flexion during knee extension. Phase II: Pt able to tolerate beginning hamstring strengthening (avoiding lengthening of hamstring position (hip flex w/knee ext) ). Pt able to perform standing hip ext (knee straight), and preeti/conc strengthening of hamstrings on HEP per protocol safely for pt to feel safe in standing. (02/05/22: Pt tolerates PROM of R knee with no hip flexion - no pain or discomfort). 02/09/22: Pt tolerates PROM of R knee with no hip flexion w/ out pain or discomfort 02/20/22: phase II, added mini lunge and squat at rail knee flexion ROM >60 deg. STG Duration 03/29/22 (02/20/22: Progressing, in phase II) Halfway Goal (LTG) Pt able to strengthen R hamstring in a lengthened hamstring position (per protocol) s/p wks 12-16 and will be able to balance standing with safety of hamstring tendon secure. 02/20/22: Education on Phase III not until 03/17/22. LTG Duration 04/26/22 education 03/17 start. Three Impairment Decreased Standing due to limited WBing in RLE Impairment Protocol limits standing to NWBing wks 0-2, TTWBing 2-6 wks. Short Term Goal (STG) Phase I: Pt will be able to walk with crutches and TTWBing through s/p wks 1-6. (01/23/22: Pt ambs with TTWBing and crutches) (02/02/22: End of week 6, pt ambs with TTWBing and crutches ). 02/09/22: End of week 7, pt ambs with TTWBing and crutches. STG Duration 02/15/22 (02/02/22: MET GOAL) Protector Plate Attacher Goal (LTG) Per protocol: Phase II (wks 5 -12) Normal gait, Functional mvmts w/o unloading the RLE while demonstrating good control. SLS greater than 15 secs. Normal 5/5 R hamstring strength w/knee in 90 deg's flexion at least 4/5. Pt will be able to safely stand. (02/22/22: Pt ambulates without AD, wide gait deviations with gait). LTG Duration 04/26/22 (02/22/22: Progressing Two Impairment Decreased R knee PROM/AROM Impairment s/p wks 0-6: No active knee ROM Passive R knee flexion limited by brace to 30 deg's flexion. Per protocol: No active R knee ext with flexion of R hip. Short Term Goal (STG) Improve R knee PROM (without hip flex) per rehab protocol. (02/05/22: Passive R Knee ext without hip flexion is 0 deg's ) 02/09/22: Passive R Knee ext w/ out hip flexion is 0 deg 02/16/22: AROM R knee flex 105 deg STG Duration 02/15/22 Protector Plate Attacher Goal (LTG) Phase II for R knee: R knee 0 -30 deg's. LTG Duration 04/26/22 One Impairment Lacks Self care Impairment Pt under adherence to protocol Short Term Goal (STG) Pt has good understanding phase I-II of self intermediate program per rehab protocol. STG Duration 03/29/22 (01/23/21: MET GOAL) Halfway Goal (LTG) Pt has good understanding of phase III self intermediate program rehab protocol. 02/20/22: education to adhere to not performing phase III activities until 03/17/22 then progress slowly for healing. LTG Duration 04/26/22 progressin02/20/22 Assessment Summary Assessment Treatment focus today on LE strengthening w/ neutral foot positioning to decrease stress to R knee, and education and stretching. Pt presents w/ anterior knee pain after home activities and is again cautioned not to push into pain and to use ice at home. Pt also has excessive R hip external rotation and requires cues for neutral foot positioning w/ all closed chain exercises today. Knee valgus w/ Sit to Stand improves w/ theraband above knees. Pt states using his bike has helped his knee pain in the past so he wants to ride his bike - pt is cautioned about maintaining precautions for hip flexion w/ knee extension on bike as with a sudden stop, and pt is educated that a lower bike seat increases the knee angle. Pt requires initial cues to avoid hopping with lateral band walks but self-awareness improves w/visual and verbal cueing. Physical Therapy Plan Next Visit Focus/Plan Next Note Type Treatment Note Next Visit Plan Proceeded w/ Phase II of new protocol (6-12 weeks). Recheck activities: Prone knee flex to 90 deg's with assist on return (hold ecc strengthening), lunges, squat <60 deg knees. Add standing leg extensions, double leg balance & when ready gait training. Monitor scar mobility. Per protocol core stabilization and hip (AB, ext ) strengthening. POC: Follow R Hamstring repair per protocol of Dr. Kolby Locke (see notes section in documentation system). See PRECAUTIONS (phase II) in Visit Information. Phase I: wks 1-6. Protective phase. Phase II: wks 6-12 (see new protocol). p/o 6-8 wks: Unlock hinged knee brace to 30 deg's flex, then 0 deg's flex /ext., wean off crutches and normalize gait, good control of mvmt including step up/down , squat, partial lunge (<60 deg's knee flex). Precautions: avoid dynamic stretching, no impact or running. Phase III: Usually 3 months after surgery, see protocol.
--- NOTE | 2022-03-06 17:32 | PT.OTN ---
Current Diagnoses Strain of muscle, fascia and tendon of the posterior muscle group at thigh level, right thigh, initial encounter (03/06/22) Physical Therapy Treatment Note PT-OP-A Visit Information Start: 12/29/21 19:43 Freq: Status: Active Protocol: Document 03/06/22 16:50 DCW (Rec: 03/06/22 17:32 DCW [id number]) Out-Patient Physical Therapy Visit Information Visit Information Visit Type Treatment Note Visit Start Time 16:50 Visit Stop Time 17:30 Total Visit Minutes 40 Visit Number 17 PT-OP-B Current Condition Start: 12/29/21 19:43 Freq: Status: Active Protocol: Document 01/04/22 13:01 LRN (Rec: 01/04/22 18:15 LRN [id number]) Current Condition History of Current Condition Onset Date 12/25/21 Current Complaints Impossible to get comfortable, not quite stable w/crutches. 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 Pt 10 days post op. Pt fall 09/05/21. Was carrying a heavy bin and slipped going up a step and both feet slipped off the step causing a lot of pain in the posterior thigh. Caused a lot of bruinsing and pain for 2 weeks after the fall. Kept walking for 6 weeks with his [place] and it didn't feel strong or stable; therefore sought further medical assessment. Was referred to [place] for repair of tore R hamstring tendons off ischial tuberosity. 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 Prior Treatments and Tests Taking intermittently morphine /oxicodone, Tylenol, ASA for post-op blood thinning, Meloxicam as anti-inflammatory and Methylcarbonal (ms relaxor). Future Testing and Treatments Planned Next MD visit 01/09/22. Developmental History Developmental History Used crutches with knee replacement in 2013. Per pt, RLE PMH: meniscus tear - ACL in 1987, Meniscectomy in , Partial TKA 2008, TKA 2013. R Bunionectomy, R ankle tendon repair, 2 shoulder surgeries. Treatment Goals Patient/Caregiver Goals Pt goal is: Safely get to point to safely stand. Safely get through stage of healing to do strengthening at home of hamstrings. Balance standing with safety of hamstring tendon secure. Prior Functional Status Baseline Function- ADL's Needs Assist Baseline Function- Mobility Needs Assist Baseline Function- Gait Normal gait, no assistive device. 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 Baseline Function- Recreation/Hobbies 10 mile Hikes, coud drive 6 miles, general stiffness after driving long distances. Current Functional Impairments (Reported) Functional Limitations- ADL's Sitting tolerance - 1 minute before having to shift and move. Functional Limitations- Mobility/Gait Gait with crutches, NWBind RLE , wearing knee brace locked at 45 deg's flex. Functional Limitations- Work/School Retired. Functional Limitations- Recreation/ Not able to participate Hobbies Functional Limitations- Other Increased urination at nighttime (5 times per night). Personal Factors Other Personal Factors That May Effect Protocol limiting R Hip/knee Therapy/Recovery mobility & strengthening due to proper healing, R knee brace locked at 50 deg's flex for wks 0-6. Uncontrolled HBP PT-OP-C Subjective Start: 12/29/21 19:43 Freq: Status: Active Protocol: Document 03/06/22 16:50 DCW (Rec: 03/06/22 17:32 DCW [id number]) OP-PT Subjective Patient Comments Patient Comments Yesterday I took too long of a walk, and I was pretty sore afterward. PT-OP-G Mobility & Gait Start: 12/29/21 19:43 Freq: Status: Active Protocol: Document 01/04/22 13:01 LRN (Rec: 01/04/22 18:21 LRN [id number]) OP Gait Assessment Gait Gait Assistance Required: Standby Assistance Distance (Feet) 100 Able to Maintain Weight Bearing Status Yes During Gait Assistive Devices Assistive Device Axillary Crutches Factors Limiting Gait Function Factors Limiting Gait Function Decreased Activity Tolerance, Incoordination,Poor Safety Awareness Comments Gait Comments Pt at time not very steady with gait but was able to self correct. PT-OP-J Posture/Palpation/Skin Start: 12/29/21 19:43 Freq: Status: Active Protocol: Document 02/05/22 13:52 LRN (Rec: 02/05/22 17:13 LRN [id number]) Skin Assessment Other Assessments Skin Assessment Comments Discoloration in the posteromedial and posterolateral aspect of the R knee/thigh from knee to distal 1/3 of thigh. No pain on palpation. PT-OP-K Range of Motion Start: 12/29/21 19:43 Freq: Status: Active Protocol: Document 02/16/22 11:50 NBM (Rec: 02/19/22 19:18 NBM [id number]) Knee Goniometric Range of Motion Knee Right Patient Position Supine Flexion Active (degrees) 105 Comments AROM knee flexion: Pre-treatment: 88 deg Post-treatment: 105 deg PT-OP-M Strength Start: 12/29/21 19:43 Freq: Status: Active Protocol: Document 01/04/22 13:01 LRN (Rec: 01/04/22 18:19 LRN [id number]) Knee Strength Knee Manual Muscle Testing Right Comments Deferred per post op protocol Left Flexion (S2) 5 Normal Extension (L3) 5 Normal Ankle/Foot Strength Ankle and Foot Manual Muscle Testing Right Comments Deferred testing due to NWBing post op protocol for wks 0-2. Pt is able to do active ankle pumps; therefore strenght is at least 3/5. Left Comments Generally 5/5 PT-OP-Q Treatments Start: 12/29/21 19:43 Freq: Status: Active Protocol: Document 03/06/22 16:50 DCW (Rec: 03/06/22 17:32 DCW [id number]) Cardio Equipment Bicycle (Upright) Duration (Minutes) 8 Resistance 5 Seat Position 11 Other forward 90 RPM, 4.59 miles Therapeutic Exercises Supine Exercises SLR Supine Exercise Name SLR 30-45 deg's lift: Foot 12 & 2 O'Clock Side right Reps/Minutes 2 x10 each Bridging Side bilateral Reps/Minutes 10 reps, 5 sec hold Comments DL only per protocol Standing Exercises Hip Extension Standing Exercise Name Hip extension Side right Resistance Lv 2 sidesteps with theraband Resistance Green Reps/Minutes 4 xms down and back at parallel bars Comments pt in mini squat position modified Lunges Side bilateral Resistance AROM Equipment Used rail support Reps/Minutes x10 each LE Comments >60 deg knee flexion, painfree , cued space between BLE mini squat Standing Exercise Name >60 deg knee flexion Resistance AROM w/ contact rail Reps/Minutes 2x5 reps Comments cued hip hinge then knee flexion Manual Therapy Treatment Soft Tissue Mobilization Hamstring Body Location R HS Mobilization Type Oscillations,Rolling,Sustained Pressure Intensity/Depth mod Body Position Prone Comments proximal HS focus. Neuro Re-Education Treatment Balance Activities single leg balance Reps/Duration 2 x 30 seconds each PT-OP-T Assessment and Plan Start: 12/29/21 19:43 Freq: Status: Active Protocol: Document 03/06/22 16:50 DCW (Rec: 03/06/22 17:32 DCW [id number]) Physical Therapy Assessment Goals Four Impairment R Hamstring weakness Impairment Protocol: PROM of knee flexion only (strength 0/5). Short Term Goal (STG) Phase I: PROM R knee, no hip flexion during knee extension. Phase II: Pt able to tolerate beginning hamstring strengthening (avoiding lengthening of hamstring position (hip flex w/knee ext) ). Pt able to perform standing hip ext (knee straight), and preeti/conc strengthening of hamstrings on HEP per protocol safely for pt to feel safe in standing. (02/05/22: Pt tolerates PROM of R knee with no hip flexion - no pain or discomfort). 02/09/22: Pt tolerates PROM of R knee with no hip flexion w/ out pain or discomfort 02/20/22: phase II, added mini lunge and squat at rail knee flexion ROM >60 deg. STG Duration 03/29/22 (02/20/22: Progressing, in phase II) [facility] Goal (LTG) Pt able to strengthen R hamstring in a lengthened hamstring position (per protocol) s/p wks 12-16 and will be able to balance standing with safety of hamstring tendon secure. 02/20/22: Education on Phase III not until 03/17/22. LTG Duration 04/26/22 education 03/17 start. Three Impairment Decreased Standing due to limited WBing in RLE Impairment Protocol limits standing to NWBing wks 0-2, TTWBing 2-6 wks. Short Term Goal (STG) Phase I: Pt will be able to walk with crutches and TTWBing through s/p wks 1-6. (01/23/22: Pt ambs with TTWBing and crutches) (02/02/22: End of week 6, pt ambs with TTWBing and crutches ). 02/09/22: End of week 7, pt ambs with TTWBing and crutches. STG Duration 02/15/22 (02/02/22: MET GOAL) [facility] Goal (LTG) Per protocol: Phase II (wks 5 -12) Normal gait, Functional mvmts w/o unloading the RLE while demonstrating good control. SLS greater than 15 secs. Normal 5/5 R hamstring strength w/knee in 90 deg's flexion at least 4/5. Pt will be able to safely stand. (02/22/22: Pt ambulates without AD, wide gait deviations with gait). LTG Duration 04/26/22 (02/22/22: Progressing Two Impairment Decreased R knee PROM/AROM Impairment s/p wks 0-6: No active knee ROM Passive R knee flexion limited by brace to 30 deg's flexion. Per protocol: No active R knee ext with flexion of R hip. Short Term Goal (STG) Improve R knee PROM (without hip flex) per rehab protocol. (02/05/22: Passive R Knee ext without hip flexion is 0 deg's ) 02/09/22: Passive R Knee ext w/ out hip flexion is 0 deg 02/16/22: AROM R knee flex 105 deg STG Duration 02/15/22 Salvage Diver Goal (LTG) Phase II for R knee: R knee 0 -30 deg's. LTG Duration 04/26/22 One Impairment Lacks Self care Impairment Pt under adherence to protocol Short Term Goal (STG) Pt has good understanding phase I-II of self longterm program per rehab protocol. STG Duration 03/29/22 (01/23/21: MET GOAL) [facility] Goal (LTG) Pt has good understanding of phase III self longterm program rehab protocol. 02/20/22: education to adhere to not performing phase III activities until 03/17/22 then progress slowly for healing. LTG Duration 04/26/22 progressin02/20/22 Assessment Summary Assessment Pt presented today with what appeared to be relatively new bruising along right hamstring insertion, pt noted that he wasn't surprised after his walk yesterday. Again discussed pt's tendency to overdo activity on affected leg. Did tolerate PT session well, required verbal cues for getting foot to return to neutral position. Pt pushing to return to biking and HS curls in his home gym. Physical Therapy Plan Frequency and Duration Frequency of Treatment 2x/Week Plan of Care Start Date 01/04/22 Plan of Care End Date 04/26/22 Therapeutic Interventions Therapeutic Interventions Aquatic Therapy,Balance Training,Gait Training,Home Exercise Program,Manual Therapy,Neuromuscular Re- education,Patient/Caregiver Education,Self-Care/Home Management,Soft Tissue Mobilization,Therapeutic Exercises Modalities Cold Pack/Ice Massage, Ultrasound Next Visit Focus/Plan Next Note Type Treatment Note Next Visit Plan Proceed w/ Phase II of new protocol (6-12 weeks). Recheck activities: Prone knee flex to 90 deg's with assist on return (hold ecc strengthening), lunges, squat <60 deg knees, standing leg extensions, Add double leg balance & when ready gait training. Monitor scar mobility. Per protocol core stabilization and hip (AB, ext ) strengthening. POC: Follow R Hamstring repair per protocol of Dr. Kolby Locke (see notes section in documentation system). See PRECAUTIONS (phase II) in Visit Information. Phase I: wks 1-6. Protective phase. Phase II: wks 6-12 (see new protocol). p/o 6-8 wks: Unlock hinged knee brace to 30 deg's flex, then 0 deg's flex /ext., wean off crutches and normalize gait, good control of mvmt including step up/down , squat, partial lunge (<60 deg's knee flex). Precautions: avoid dynamic stretching, no impact or running. Phase III: Usually 3 months after surgery, see protocol.
--- NOTE | 2022-03-08 18:12 | PT.OTN ---
Current Diagnoses Strain of muscle, fascia and tendon of the posterior muscle group at thigh level, right thigh, initial encounter (03/08/22) Physical Therapy Treatment Note PT-OP-A Visit Information Start: 12/29/21 19:43 Freq: Status: Active Protocol: Document 03/08/22 12:59 NBM (Rec: 03/08/22 18:10 NBM [id number]) Out-Patient Physical Therapy Visit Information Visit Information Visit Type Treatment Note Visit Start Time 13:08 Visit Stop Time 13:46 Total Visit Minutes 38 Visit Number 18 Number of ACCOUNTING MANAGER Visits 1 Precautions Precautions PRECAUTIONS PHASE II: Avoid dynamic stretching, Avoid loading the hip at deep flexion angles, No impact or running. PT-OP-B Current Condition Start: 12/29/21 19:43 Freq: Status: Active Protocol: Document 01/04/22 13:01 LRN (Rec: 01/04/22 18:15 LRN [id number]) Current Condition History of Current Condition Onset Date 12/25/21 Current Complaints Impossible to get comfortable, not quite stable w/crutches. 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 Pt 10 days post op. Pt fall 09/05/21. Was carrying a heavy bin and slipped going up a step and both feet slipped off the step causing a lot of pain in the posterior thigh. Caused a lot of bruinsing and pain for 2 weeks after the fall. Kept walking for 6 weeks with his [place] and it didn't feel strong or stable; therefore sought further medical assessment. Was referred to [place] for repair of tore R hamstring tendons off ischial tuberosity. 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 Prior Treatments and Tests Taking intermittently morphine /oxicodone, Tylenol, ASA for post-op blood thinning, Meloxicam as anti-inflammatory and Methylcarbonal (ms relaxor). Future Testing and Treatments Planned Next MD visit 01/09/22. Developmental History Developmental History Used crutches with knee replacement in 2013. Per pt, RLE PMH: meniscus tear - ACL in 1987, Meniscectomy in , Partial TKA 2008, TKA 2013. R Bunionectomy, R ankle tendon repair, 2 shoulder surgeries. Treatment Goals Patient/Caregiver Goals Pt goal is: Safely get to point to safely stand. Safely get through stage of healing to do strengthening at home of hamstrings. Balance standing with safety of hamstring tendon secure. Prior Functional Status Baseline Function- ADL's Needs Assist Baseline Function- Mobility Needs Assist Baseline Function- Gait Normal gait, no assistive device. 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 Baseline Function- Recreation/Hobbies 10 mile Hikes, coud drive 6 miles, general stiffness after driving long distances. Current Functional Impairments (Reported) Functional Limitations- ADL's Sitting tolerance - 1 minute before having to shift and move. Functional Limitations- Mobility/Gait Gait with crutches, NWBind RLE , wearing knee brace locked at 45 deg's flex. Functional Limitations- Work/School Retired. Functional Limitations- Recreation/ Not able to participate Hobbies Functional Limitations- Other Increased urination at nighttime (5 times per night). Personal Factors Other Personal Factors That May Effect Protocol limiting R Hip/knee Therapy/Recovery mobility & strengthening due to proper healing, R knee brace locked at 50 deg's flex for wks 0-6. Uncontrolled HBP PT-OP-C Subjective Start: 12/29/21 19:43 Freq: Status: Active Protocol: Document 03/08/22 12:59 NBM (Rec: 03/08/22 18:10 NBM [id number]) OP-PT Subjective Patient Comments Patient Comments Pt states he went for a walk and also moved a heavy telescope yesterday down two steps and his hamstring feels sore. PT-OP-G Mobility & Gait Start: 12/29/21 19:43 Freq: Status: Active Protocol: Document 01/04/22 13:01 LRN (Rec: 01/04/22 18:21 LRN [id number]) OP Gait Assessment Gait Gait Assistance Required: Standby Assistance Distance (Feet) 100 Able to Maintain Weight Bearing Status Yes During Gait Assistive Devices Assistive Device Axillary Crutches Factors Limiting Gait Function Factors Limiting Gait Function Decreased Activity Tolerance, Incoordination,Poor Safety Awareness Comments Gait Comments Pt at time not very steady with gait but was able to self correct. PT-OP-J Posture/Palpation/Skin Start: 12/29/21 19:43 Freq: Status: Active Protocol: Document 02/05/22 13:52 LRN (Rec: 02/05/22 17:13 LRN [id number]) Skin Assessment Other Assessments Skin Assessment Comments Discoloration in the posteromedial and posterolateral aspect of the R knee/thigh from knee to distal 1/3 of thigh. No pain on palpation. PT-OP-K Range of Motion Start: 12/29/21 19:43 Freq: Status: Active Protocol: Document 02/16/22 11:50 NBM (Rec: 02/19/22 19:18 NBM [id number]) Knee Goniometric Range of Motion Knee Right Patient Position Supine Flexion Active (degrees) 105 Comments AROM knee flexion: Pre-treatment: 88 deg Post-treatment: 105 deg PT-OP-M Strength Start: 12/29/21 19:43 Freq: Status: Active Protocol: Document 01/04/22 13:01 LRN (Rec: 01/04/22 18:19 LRN [id number]) Knee Strength Knee Manual Muscle Testing Right Comments Deferred per post op protocol Left Flexion (S2) 5 Normal Extension (L3) 5 Normal Ankle/Foot Strength Ankle and Foot Manual Muscle Testing Right Comments Deferred testing due to NWBing post op protocol for wks 0-2. Pt is able to do active ankle pumps; therefore strenght is at least 3/5. Left Comments Generally 5/5 PT-OP-Q Treatments Start: 12/29/21 19:43 Freq: Status: Active Protocol: Document 03/08/22 12:59 NBM (Rec: 03/08/22 18:10 NBM [id number]) Cardio Equipment Bicycle (Upright) Duration (Minutes) 5 Resistance 7 Seat Position 11 Other forward 96 RPM Therapeutic Exercises Supine Exercises SLR Supine Exercise Name SLR 30-45 deg's lift: Foot 12 & 2 O'Clock Side right Reps/Minutes 2 x10 each Bridging Side bilateral Reps/Minutes 10 reps, 5 sec hold (verbal count for hold) Comments DL only per protocol Standing Exercises Hip Extension Standing Exercise Name Hip extension Side bilateral Resistance Lv 2 sidesteps with theraband Resistance Green Reps/Minutes 4 xms down and back at parallel bars Comments pt in mini squat position - improved form modified Lunges Side bilateral Resistance AROM Equipment Used rail support Reps/Minutes x10 each LE Comments >60 deg knee flexion, painfree , cued space between BLE mini squat Standing Exercise Name >60 deg knee flexion Resistance AROM w/ contact rail Reps/Minutes 2x10 reps Comments cued hip hinge then knee flexion Manual Therapy Treatment Soft Tissue Mobilization Hamstring Body Location R HS Mobilization Type Oscillations,Rolling,Sustained Pressure Intensity/Depth Moderate Body Position Prone Neuro Re-Education Treatment Balance Activities single leg balance Reps/Duration 2 x 30 seconds each Weightshifting Details Fwd/Bwd/Lat, feet apart/feet together, EO/EC Surface firm Equipment // bars Reps/Duration 4 min Comments EC challenging added to HEP w/ corner and chair PT-OP-T Assessment and Plan Start: 12/29/21 19:43 Freq: Status: Active Protocol: Document 03/08/22 12:59 NBM (Rec: 03/08/22 18:10 NBM [id number]) Physical Therapy Assessment Goals Four Impairment R Hamstring weakness Impairment Protocol: PROM of knee flexion only (strength 0/5). Short Term Goal (STG) Phase I: PROM R knee, no hip flexion during knee extension. Phase II: Pt able to tolerate beginning hamstring strengthening (avoiding lengthening of hamstring position (hip flex w/knee ext) ). Pt able to perform standing hip ext (knee straight), and preeti/conc strengthening of hamstrings on HEP per protocol safely for pt to feel safe in standing. (02/05/22: Pt tolerates PROM of R knee with no hip flexion - no pain or discomfort). 02/09/22: Pt tolerates PROM of R knee with no hip flexion w/ out pain or discomfort 02/20/22: phase II, added mini lunge and squat at rail knee flexion ROM >60 deg. STG Duration 03/29/22 (02/20/22: Progressing, in phase II) District Plant Supervisor Goal (LTG) Pt able to strengthen R hamstring in a lengthened hamstring position (per protocol) s/p wks 12-16 and will be able to balance standing with safety of hamstring tendon secure. 02/20/22: Education on Phase III not until 03/17/22. LTG Duration 04/26/22 education 03/17 start. Three Impairment Decreased Standing due to limited WBing in RLE Impairment Protocol limits standing to NWBing wks 0-2, TTWBing 2-6 wks. Short Term Goal (STG) Phase I: Pt will be able to walk with crutches and TTWBing through s/p wks 1-6. (01/23/22: Pt ambs with TTWBing and crutches) (02/02/22: End of week 6, pt ambs with TTWBing and crutches ). 02/09/22: End of week 7, pt ambs with TTWBing and crutches. STG Duration 02/15/22 (02/02/22: MET GOAL) Detention Goal (LTG) Per protocol: Phase II (wks 5 -12) Normal gait, Functional mvmts w/o unloading the RLE while demonstrating good control. SLS greater than 15 secs. Normal 5/5 R hamstring strength w/knee in 90 deg's flexion at least 4/5. Pt will be able to safely stand. (02/22/22: Pt ambulates without AD, wide gait deviations with gait). LTG Duration 04/26/22 (02/22/22: Progressing Two Impairment Decreased R knee PROM/AROM Impairment s/p wks 0-6: No active knee ROM Passive R knee flexion limited by brace to 30 deg's flexion. Per protocol: No active R knee ext with flexion of R hip. Short Term Goal (STG) Improve R knee PROM (without hip flex) per rehab protocol. (02/05/22: Passive R Knee ext without hip flexion is 0 deg's ) 02/09/22: Passive R Knee ext w/ out hip flexion is 0 deg 02/16/22: AROM R knee flex 105 deg STG Duration 02/15/22 District Plant Supervisor Goal (LTG) Phase II for R knee: R knee 0 -30 deg's. LTG Duration 04/26/22 One Impairment Lacks Self care Impairment Pt under adherence to protocol Short Term Goal (STG) Pt has good understanding phase I-II of self nursing home program per rehab protocol. STG Duration 03/29/22 (01/23/21: MET GOAL) Detention Goal (LTG) Pt has good understanding of phase III self nursing home program rehab protocol. 02/20/22: education to adhere to not performing phase III activities until 03/17/22 then progress slowly for healing. LTG Duration 04/26/22 progressin02/20/22 Assessment Summary Assessment Pt demonstrates improved form w/ resisted band walking but requires cues for toes foward. Pt demonstrates knee valgus and knee flexion past toes w/ mini squats, self-awareness improves w/ cueing. Pt continues to require initial cueing to keep space between BLE w/ mini lunges, and is challenged w/ eyes closed during weightshifting towards limits of base of support. Physical Therapy Plan Next Visit Focus/Plan Next Note Type Treatment Note Next Visit Plan Proceed w/ Phase II of new protocol (6-12 weeks). Recheck activities: Prone knee flex to 90 deg's with assist on return (hold ecc strengthening), lunges, squat <60 deg knees, standing leg extensions, Add double leg balance & when ready gait training. Monitor scar mobility. Per protocol core stabilization and hip (AB, ext ) strengthening. POC: Follow R Hamstring repair per protocol of Dr. Kolby Locke (see notes section in documentation system). See PRECAUTIONS (phase II) in Visit Information. Phase I: wks 1-6. Protective phase. Phase II: wks 6-12 (see new protocol). p/o 6-8 wks: Unlock hinged knee brace to 30 deg's flex, then 0 deg's flex /ext., wean off crutches and normalize gait, good control of mvmt including step up/down , squat, partial lunge (<60 deg's knee flex). Precautions: avoid dynamic stretching, no impact or running. Phase III: Usually 3 months after surgery, see protocol.
--- NOTE | 2022-03-21 17:20 | PT.OTN ---
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 Post-activity soreness should resolve within 24 hours. PRECAUTIONS PHASE II: Avoid dynamic stretching, Avoid loading the hip at deep flexion angles, No impact or running. PT-OP-B Current Condition Start: 12/29/21 19:43 Freq: Status: Active Protocol: Document 01/04/22 13:01 LRN (Rec: 01/04/22 18:15 LRN [id number]) Current Condition History of Current Condition Onset Date 12/25/21 Current Complaints Impossible to get comfortable, not quite stable w/crutches. 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 Pt 10 days post op. Pt fall 09/05/21. Was carrying a heavy bin and slipped going up a step and both feet slipped off the step causing a lot of pain in the posterior thigh. Caused a lot of bruinsing and pain for 2 weeks after the fall. Kept walking for 6 weeks with his [place] and it didn't feel strong or stable; therefore sought further medical assessment. Was referred to [facility] for repair of tore R hamstring tendons off ischial tuberosity. 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 Prior Treatments and Tests Taking intermittently morphine /oxicodone, Tylenol, ASA for post-op blood thinning, Meloxicam as anti-inflammatory and Methylcarbonal (ms relaxor). Future Testing and Treatments Planned Next MD visit 01/09/22. Developmental History Developmental History Used crutches with knee replacement in 2013. Per pt, RLE PMH: meniscus tear - ACL in 1987, Meniscectomy in , Partial TKA 2008, TKA 2013. R Bunionectomy, R ankle tendon repair, 2 shoulder surgeries. Treatment Goals Patient/Caregiver Goals Pt goal is: Safely get to point to safely stand. Safely get through stage of healing to do strengthening at home of hamstrings. Balance standing with safety of hamstring tendon secure. Prior Functional Status Baseline Function- ADL's Needs Assist Baseline Function- Mobility Needs Assist Baseline Function- Gait Normal gait, no assistive device. 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 Baseline Function- Recreation/Hobbies 10 mile Hikes, coud drive 6 miles, general stiffness after driving long distances. Current Functional Impairments (Reported) Functional Limitations- ADL's Sitting tolerance - 1 minute before having to shift and move. Functional Limitations- Mobility/Gait Gait with crutches, NWBind RLE , wearing knee brace locked at 45 deg's flex. Functional Limitations- Work/School Retired. Functional Limitations- Recreation/ Not able to participate Hobbies Functional Limitations- Other Increased urination at nighttime (5 times per night). Personal Factors Other Personal Factors That May Effect Protocol limiting R Hip/knee Therapy/Recovery mobility & strengthening due to proper healing, R knee brace locked at 50 deg's flex for wks 0-6. Uncontrolled HBP PT-OP-C Subjective Start: 12/29/21 19:43 Freq: Status: Active Protocol: Document 03/21/22 15:21 AW (Rec: 03/21/22 17:20 AW [id number]) OP-PT Subjective Patient Comments Patient Comments Pt has been walking on trails. Is excited to begin phase III rehab PT-OP-G Mobility & Gait Start: 12/29/21 19:43 Freq: Status: Active Protocol: Document 01/04/22 13:01 LRN (Rec: 01/04/22 18:21 LRN [id number]) OP Gait Assessment Gait Gait Assistance Required: Standby Assistance Distance (Feet) 100 Able to Maintain Weight Bearing Status Yes During Gait Assistive Devices Assistive Device Axillary Crutches Factors Limiting Gait Function Factors Limiting Gait Function Decreased Activity Tolerance, Incoordination,Poor Safety Awareness Comments Gait Comments Pt at time not very steady with gait but was able to self correct. PT-OP-J Posture/Palpation/Skin Start: 12/29/21 19:43 Freq: Status: Active Protocol: Document 02/05/22 13:52 LRN (Rec: 02/05/22 17:13 LRN [id number]) Skin Assessment Other Assessments Skin Assessment Comments Discoloration in the posteromedial and posterolateral aspect of the R knee/thigh from knee to distal 1/3 of thigh. No pain on palpation. PT-OP-K Range of Motion Start: 12/29/21 19:43 Freq: Status: Active Protocol: Document 02/16/22 11:50 NBM (Rec: 02/19/22 19:18 NBM [id number]) Knee Goniometric Range of Motion Knee Right Patient Position Supine Flexion Active (degrees) 105 Comments AROM knee flexion: Pre-treatment: 88 deg Post-treatment: 105 deg PT-OP-M Strength Start: 12/29/21 19:43 Freq: Status: Active Protocol: Document 01/04/22 13:01 LRN (Rec: 01/04/22 18:19 LRN [id number]) Knee Strength Knee Manual Muscle Testing Right Comments Deferred per post op protocol Left Flexion (S2) 5 Normal Extension (L3) 5 Normal Ankle/Foot Strength Ankle and Foot Manual Muscle Testing Right Comments Deferred testing due to NWBing post op protocol for wks 0-2. Pt is able to do active ankle pumps; therefore strenght is at least 3/5. Left Comments Generally 5/5 PT-OP-Q Treatments Start: 12/29/21 19:43 Freq: Status: Active Protocol: Document 03/21/22 15:21 AW (Rec: 03/21/22 17:20 AW [id number]) Cardio Equipment Bicycle (Upright) Duration (Minutes) 5 Resistance 7 Seat Position 11 Therapeutic Exercises Supine Exercises SLR Supine Exercise Name SLR 30-45 deg's lift: Foot 12 & 2 O'Clock Side right Reps/Minutes 2 x10 each Bridging Supine Exercise Name DL concentric; SL eccentric Side bilateral Reps/Minutes 10 reps, 5 sec hold (verbal count for hold) Comments progressed per protocol; clinic only Sitting Exercises stool scoot Sitting Exercise Name stool scoot Comments clinic only Standing Exercises forward T Standing Exercise Name forward T Side bilateral Equipment Used trek poles Comments HEP mini squat Standing Exercise Name >60 deg knee flexion Resistance AROM w/ contact rail Reps/Minutes 2x10 reps Comments cued hip hinge then knee flexion Manual Therapy Treatment Soft Tissue Mobilization Hamstring Body Location R HS Mobilization Type Oscillations,Rolling,Sustained Pressure Intensity/Depth Moderate Body Position Prone PT-OP-T Assessment and Plan Start: 12/29/21 19:43 Freq: Status: Active Protocol: Document 03/21/22 15:21 AW (Rec: 03/21/22 17:20 AW [id number]) Physical Therapy Assessment Goals Four Impairment R Hamstring weakness Impairment Protocol: PROM of knee flexion only (strength 0/5). Short Term Goal (STG) Phase I: PROM R knee, no hip flexion during knee extension. Phase II: Pt able to tolerate beginning hamstring strengthening (avoiding lengthening of hamstring position (hip flex w/knee ext) ). Pt able to perform standing hip ext (knee straight), and preeti/conc strengthening of hamstrings on HEP per protocol safely for pt to feel safe in standing. (02/05/22: Pt tolerates PROM of R knee with no hip flexion - no pain or discomfort). 02/09/22: Pt tolerates PROM of R knee with no hip flexion w/ out pain or discomfort 02/20/22: phase II, added mini lunge and squat at rail knee flexion ROM >60 deg. STG Duration 03/29/22 (02/20/22: Progressing, in phase II) Half-Way Goal (LTG) Pt able to strengthen R hamstring in a lengthened hamstring position (per protocol) s/p wks 12-16 and will be able to balance standing with safety of hamstring tendon secure. 02/20/22: Education on Phase III not until 03/17/22. LTG Duration 04/26/22 education 03/17 start. Three Impairment Decreased Standing due to limited WBing in RLE Impairment Protocol limits standing to NWBing wks 0-2, TTWBing 2-6 wks. Short Term Goal (STG) Phase I: Pt will be able to walk with crutches and TTWBing through s/p wks 1-6. (01/23/22: Pt ambs with TTWBing and crutches) (02/02/22: End of week 6, pt ambs with TTWBing and crutches ). 02/09/22: End of week 7, pt ambs with TTWBing and crutches. STG Duration 02/15/22 (02/02/22: MET GOAL) Half-Way Goal (LTG) Per protocol: Phase II (wks 5 -12) Normal gait, Functional mvmts w/o unloading the RLE while demonstrating good control. SLS greater than 15 secs. Normal 5/5 R hamstring strength w/knee in 90 deg's flexion at least 4/5. Pt will be able to safely stand. (02/22/22: Pt ambulates without AD, wide gait deviations with gait). LTG Duration 04/26/22 (02/22/22: Progressing Two Impairment Decreased R knee PROM/AROM Impairment s/p wks 0-6: No active knee ROM Passive R knee flexion limited by brace to 30 deg's flexion. Per protocol: No active R knee ext with flexion of R hip. Short Term Goal (STG) Improve R knee PROM (without hip flex) per rehab protocol. 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 LTG Duration 04/26/22 One Impairment Lacks Self care Impairment Pt under adherence to protocol Short Term Goal (STG) Pt has good understanding phase I-II of self halfway program per rehab protocol. STG Duration 03/29/22 (01/23/21: MET GOAL) Windows Security Engineer Goal (LTG) Pt has good understanding of phase III self halfway program rehab protocol. 02/20/22: education to adhere to not performing phase III activities until 03/17/22 then progress slowly for healing. LTG Duration 04/26/22 progressin02/20/22 Assessment Summary Assessment Assessed progression criteria to begin phase III rehab and pt meets all except that he lacks 5/5 HS strength in prone with knee at 90? flexion ( currently 4+/5). Educated pt on new precautions of no pain during strength training and soreness to be tolerated no more than 24 hours post- activity. Pt appears to understand but may need frequent reminders. Ok to begin HS strengthening in lengthened positions. Initiated forward SL leans today and pt was able to manage relatively well with B trekking pole support. Control of single-leg descent from bridge was poor. Physical Therapy Plan Frequency and Duration Frequency of Treatment 2x/Week Plan of Care Start Date 01/04/22 Plan of Care End Date 04/26/22 Therapeutic Interventions Therapeutic Interventions Aquatic Therapy,Balance Training,Gait Training,Home Exercise Program,Manual Therapy,Neuromuscular Re- education,Patient/Caregiver Education,Self-Care/Home Management,Soft Tissue Mobilization,Therapeutic Exercises Modalities Cold Pack/Ice Massage, Ultrasound Next Visit Focus/Plan Next Note Type Treatment Note Next Visit Plan Continue education on phase III precautions and protocol. POC: Recheck activities: Prone knee flex to 90 deg's with assist on return (hold ecc strengthening), lunges, squat <60 deg knees, standing leg extensions, Add double leg balance & when ready gait training. Monitor scar mobility. Per protocol core stabilization and hip (AB, ext ) strengthening. POC: Follow R Hamstring repair per protocol of Dr. Kolby Locke (see notes section in documentation system). See PRECAUTIONS (phase II) in Visit Information. Phase I: wks 1-6. Protective phase. Phase II: wks 6-12 (see new protocol). p/o 6-8 wks: Unlock hinged knee brace to 30 deg's flex, then 0 deg's flex /ext., wean off crutches and normalize gait, good control of mvmt including step up/down , squat, partial lunge (<60 deg's knee flex). Precautions: avoid dynamic stretching, no impact or running. Phase III: Usually 3 months after surgery, see protocol.
--- NOTE | 2022-03-23 13:15 | PT.OTN ---
Current Diagnoses Strain of muscle, fascia and tendon of the posterior muscle group at thigh level, right thigh, initial encounter (04/04/22) Physical Therapy Treatment Note PT-OP-A Visit Information Start: 12/29/21 19:43 Freq: Status: Active Protocol: Document 03/23/22 12:17 NBM (Rec: 04/08/22 19:42 NBM [id number]) Out-Patient Physical Therapy Visit Information Visit Information Visit Type Treatment Note Visit Start Time 12:17 Visit Stop Time 01:00 Total Visit Minutes 43 Visit Number 20 Number of BAKER DOUGHNUT Visits 1 Precautions Precautions PRECAUTIONS PHASE III: No pain during strength training. Post-activity soreness should resolve within 24 hours. PRECAUTIONS PHASE II: Avoid dynamic stretching, Avoid loading the hip at deep flexion angles, No impact or running. PT-OP-B Current Condition Start: 12/29/21 19:43 Freq: Status: Active Protocol: Document 01/04/22 13:01 LRN (Rec: 01/04/22 18:15 LRN [id number]) Current Condition History of Current Condition Onset Date 12/25/21 Current Complaints Impossible to get comfortable, not quite stable w/crutches. 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 Pt 10 days post op. Pt fall 09/05/21. Was carrying a heavy bin and slipped going up a step and both feet slipped off the step causing a lot of pain in the posterior thigh. Caused a lot of bruinsing and pain for 2 weeks after the fall. Kept walking for 6 weeks with his [place] and it didn't feel strong or stable; therefore sought further medical assessment. Was referred to [facility] for repair of tore R hamstring tendons off ischial tuberosity. 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 Prior Treatments and Tests Taking intermittently morphine /oxicodone, Tylenol, ASA for post-op blood thinning, Meloxicam as anti-inflammatory and Methylcarbonal (ms relaxor). Future Testing and Treatments Planned Next MD visit 01/09/22. Developmental History Developmental History Used crutches with knee replacement in 2013. Per pt, RLE PMH: meniscus tear - ACL in 1987, Meniscectomy in , Partial TKA 2008, TKA 2013. R Bunionectomy, R ankle tendon repair, 2 shoulder surgeries. Treatment Goals Patient/Caregiver Goals Pt goal is: Safely get to point to safely stand. Safely get through stage of healing to do strengthening at home of hamstrings. Balance standing with safety of hamstring tendon secure. Prior Functional Status Baseline Function- ADL's Needs Assist Baseline Function- Mobility Needs Assist Baseline Function- Gait Normal gait, no assistive device. 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 Baseline Function- Recreation/Hobbies 10 mile Hikes, coud drive 6 miles, general stiffness after driving long distances. Current Functional Impairments (Reported) Functional Limitations- ADL's Sitting tolerance - 1 minute before having to shift and move. Functional Limitations- Mobility/Gait Gait with crutches, NWBind RLE , wearing knee brace locked at 45 deg's flex. Functional Limitations- Work/School Retired. Functional Limitations- Recreation/ Not able to participate Hobbies Functional Limitations- Other Increased urination at nighttime (5 times per night). Personal Factors Other Personal Factors That May Effect Protocol limiting R Hip/knee Therapy/Recovery mobility & strengthening due to proper healing, R knee brace locked at 50 deg's flex for wks 0-6. Uncontrolled HBP PT-OP-C Subjective Start: 12/29/21 19:43 Freq: Status: Active Protocol: Document 03/23/22 12:17 NBM (Rec: 04/08/22 19:42 NBM [id number]) OP-PT Subjective Patient Comments Patient Comments Pt states he did 10,000 steps yesterday and the day before. He has not done the forward single leg leans ex at home yet. Pt states response to last treatment and HEP was within precautions of no pain during strength training and no soreness more than 2 hours post-activity. PT-OP-D Balance Start: 12/29/21 19:43 Freq: Status: Active Protocol: Document 04/02/22 13:52 LRN (Rec: 04/02/22 15:15 LRN [id number]) Balance Tests Single Limb Standing Single Limb- Right 11 secs Single Limb- Left 1 minute PT-OP-G Mobility & Gait Start: 12/29/21 19:43 Freq: Status: Active Protocol: Document 01/04/22 13:01 LRN (Rec: 01/04/22 18:21 LRN [id number]) OP Gait Assessment Gait Gait Assistance Required: Standby Assistance Distance (Feet) 100 Able to Maintain Weight Bearing Status Yes During Gait Assistive Devices Assistive Device Axillary Crutches Factors Limiting Gait Function Factors Limiting Gait Function Decreased Activity Tolerance, Incoordination,Poor Safety Awareness Comments Gait Comments Pt at time not very steady with gait but was able to self correct. PT-OP-J Posture/Palpation/Skin Start: 12/29/21 19:43 Freq: Status: Active Protocol: Document 02/05/22 13:52 LRN (Rec: 02/05/22 17:13 LRN [id number]) Skin Assessment Other Assessments Skin Assessment Comments Discoloration in the posteromedial and posterolateral aspect of the R knee/thigh from knee to distal 1/3 of thigh. No pain on palpation. PT-OP-K Range of Motion Start: 12/29/21 19:43 Freq: Status: Active Protocol: Document 04/02/22 13:52 LRN (Rec: 04/02/22 15:15 LRN [id number]) Knee Goniometric Range of Motion Knee Right Knee ROM WFL Yes Patient Position Supine Flexion Active (degrees) 130 Extension Active (degrees) 0 Left Knee ROM WFL Yes Patient Position Sitting Comments WNL PT-OP-M Strength Start: 12/29/21 19:43 Freq: Status: Active Protocol: Document 04/02/22 13:52 LRN (Rec: 04/02/22 15:15 LRN [id number]) Knee Strength Knee Manual Muscle Testing Right Flexion (S2) 4+ Good+ Extension (L3) 5 Normal Left Flexion (S2) 4- Good- Extension (L3) 5 Normal PT-OP-Q Treatments Start: 12/29/21 19:43 Freq: Status: Active Protocol: Document 03/23/22 12:17 NBM (Rec: 04/08/22 19:42 NBM [id number]) Cardio Equipment Bicycle (Upright) Duration (Minutes) 6 Resistance 7 Seat Position 11 Therapeutic Exercises Supine Exercises SLR Supine Exercise Name SLR 30-45 deg's lift: Foot 12 & 2 O'Clock Side right Reps/Minutes 3 x10 each Bridging Supine Exercise Name DL concentric; SL eccentric Side bilateral Reps/Minutes 10 reps, 5 sec hold (verbal count for hold) Comments progressed per protocol-clinic only- vc: breathholding, maintaining height Prone Exercises Knee flex Prone Exercise Name Conc knee flex/Assistive return Side right Equipment Used 1#>3# Reps/Minutes 10x 2 Sitting Exercises stool scoot Sitting Exercise Name stool scoot Comments clinic only - cues for toes fwd R>L Standing Exercises forward T Standing Exercise Name forward T Side bilateral Equipment Used trek poles Comments max cues for excessive hip rotation joe mini squat Standing Exercise Name >60 deg knee flexion Resistance AROM w/ contact rail Reps/Minutes 2x10 reps Comments cued hip hinge, then knee flexion Manual Therapy Treatment Soft Tissue Mobilization Hamstring Body Location R HS Mobilization Type Oscillations,Rolling,Sustained Pressure,Trigger Point Release Intensity/Depth Moderate Body Position Prone PT-OP-R Modalities Start: 12/29/21 19:43 Freq: Status: Active Protocol: Document 03/23/22 12:17 NB (Rec: 04/08/22 19:42 [facility] [id number]) Hot Pack/Cold Pack Treatment Cold Pack Location R hamstrings Patient Position Supine Treatment Duration (minutes) 10 Patient Tolerance Good Comments lumbar cold pack to R HS in supine w/ strap and pillow support PT-OP-T Assessment and Plan Start: 12/29/21 19:43 Freq: Status: Active Protocol: Document 03/23/22 12:17 NBM (Rec: 04/08/22 19:42 [facility] [id number]) Physical Therapy Assessment Goals Four Impairment R Hamstring weakness Impairment Protocol: PROM of knee flexion only (strength 0/5). Short Term Goal (STG) Phase I: PROM R knee, no hip flexion during knee extension. Phase II: Pt able to tolerate beginning hamstring strengthening (avoiding lengthening of hamstring position (hip flex w/knee ext) ). Pt able to perform standing hip ext (knee straight), and preeti/conc strengthening of hamstrings on HEP per protocol safely for pt to feel safe in standing. (02/05/22: Pt tolerates PROM of R knee with no hip flexion - no pain or discomfort). 02/09/22: Pt tolerates PROM of R knee with no hip flexion w/ out pain or discomfort 02/20/22: phase II, added mini lunge and squat at rail knee flexion ROM >60 deg. STG Duration 03/29/22 (02/20/22: Progressing, in phase II) Multifocal Button Grinder Goal (LTG) Pt able to strengthen R hamstring in a lengthened hamstring position (per protocol) s/p wks 12-16 and will be able to balance standing with safety of hamstring tendon secure. 02/20/22: Education on Phase III not until 03/17/22. (04/02/22: SLS is 11 sec right , 1 minute left). LTG Duration 04/26/22 education 03/17. Three Impairment Decreased Standing due to limited WBing in RLE Impairment Protocol limits standing to NWBing wks 0-2, TTWBing 2-6 wks. Short Term Goal (STG) Phase I: Pt will be able to walk with crutches and TTWBing through s/p wks 1-6. (01/23/22: Pt ambs with TTWBing and crutches) (02/02/22: End of week 6, pt ambs with TTWBing and crutches ). 02/09/22: End of week 7, pt ambs with TTWBing and crutches. STG Duration 02/15/22 (02/02/22: MET GOAL) Retirement Goal (LTG) Per protocol: Phase II (wks 5 -12) Normal gait, Functional mvmts w/o unloading the RLE while demonstrating good control. SLS greater than 15 secs. Normal 5/5 R hamstring strength w/knee in 90 deg's flexion at least 4/5. Pt will be able to safely stand. (02/22/22: Pt ambulates without AD, wide gait deviations with gait). LTG Duration 04/26/22 (02/22/22: Progressing Two Impairment Decreased R knee PROM/AROM Impairment s/p wks 0-6: No active knee ROM Passive R knee flexion limited by brace to 30 deg's flexion. Per protocol: No active R knee ext with flexion of R hip. Short Term Goal (STG) Improve R knee PROM (without hip flex) per rehab protocol. (02/05/22: Passive R Knee ext without hip flexion is 0 deg's ) 02/09/22: Passive R Knee ext w/ out hip flexion is 0 deg 02/16/22: AROM R knee flex 105 deg. STG Duration 02/15/22 Retirement Goal (LTG) Phase II for R knee: R knee 0 -30 deg's. LTG Duration 04/26/22 One Impairment Lacks Self care Impairment Pt under adherence to protocol Short Term Goal (STG) Pt has good understanding phase I-II of self fdc program per rehab protocol. STG Duration 03/29/22 (01/23/21: MET GOAL) Retirement Goal (LTG) Pt has good understanding and is independent in a phase III self fdc care program per rehab protocol. 02/20/22: education to adhere to not performing phase III activities until 03/17/22 then progress slowly for healing. LTG Duration 04/26/22 progressin02/20/22 Assessment Summary Assessment Continued w/ progression according to Phase III rehab protocol this treatment. Reviewed precautions of no pain during strength training and soreness no more than 2 hours post-activity - pt expresses understanding. Pt is challenged w/ minisquats due to knee flexion before hip hinge R>L even w/ cueing. Pt requires cues for breathholding and maintaining height w/ bridging, and max cues for excessive hip rotation w/ forward single leg leans. Pt demonstrates excessive hip external rotation R>L w/ stool scoots. Pt will benefit from continued skilled therapeutic intervention. Physical Therapy Plan Frequency and Duration Frequency of Treatment 2x/Week Plan of Care Start Date 01/04/22 Plan of Care End Date 04/26/22 Therapeutic Interventions Therapeutic Interventions Aquatic Therapy,Balance Training,Gait Training,Home Exercise Program,Manual Therapy,Neuromuscular Re- education,Patient/Caregiver Education,Self-Care/Home Management,Soft Tissue Mobilization,Therapeutic Exercises Modalities Cold Pack/Ice Massage, Ultrasound Next Visit Focus/Plan Next Note Type Treatment Note Next Visit Plan Continue education on phase III precautions and protocol. POC: Recheck activities: Prone knee flex to 90 deg's with assist on return (hold ecc strengthening), lunges, squat <60 deg knees, standing leg extensions, Add double leg balance & when ready gait training. Monitor scar mobility. Per protocol core stabilization and hip (AB, ext ) strengthening. POC: Follow R Hamstring repair per protocol of Dr. Kolby Locke (see notes section in documentation system). See PRECAUTIONS (phase II) in Visit Information. Phase I: wks 1-6. Protective phase. Phase II: wks 6-12 (see new protocol). p/o 6-8 wks: Unlock hinged knee brace to 30 deg's flex, then 0 deg's flex /ext., wean off crutches and normalize gait, good control of mvmt including step up/down , squat, partial lunge (<60 deg's knee flex). Precautions: avoid dynamic stretching, no impact or running. Phase III: Usually 3 months after surgery, see protocol. [ End ]
--- NOTE | 2022-03-26 14:00 | PT.OTN ---
Current Diagnoses Strain of muscle, fascia and tendon of the posterior muscle group at thigh level, right thigh, initial encounter (04/04/22) Physical Therapy Treatment Note PT-OP-A Visit Information Start: 12/29/21 19:43 Freq: Status: Active Protocol: Document 03/26/22 12:54 NBM (Rec: 03/26/22 13:49 NBM [id number]) Out-Patient Physical Therapy Visit Information Visit Information Visit Type Treatment Note Visit Start Time 13:07 Visit Stop Time 13:45 Total Visit Minutes 38 Visit Number 21 Number of METAL MOULDER'S ASSISTANT Visits 2 Precautions Precautions PRECAUTIONS PHASE III: No pain during strength training. Post-activity soreness should resolve within 24 hours. PRECAUTIONS PHASE II: Avoid dynamic stretching, Avoid loading the hip at deep flexion angles, No impact or running. PT-OP-B Current Condition Start: 12/29/21 19:43 Freq: Status: Active Protocol: Document 01/04/22 13:01 LRN (Rec: 01/04/22 18:15 LRN [id number]) Current Condition History of Current Condition Onset Date 12/25/21 Current Complaints Impossible to get comfortable, not quite stable w/crutches. 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 Pt 10 days post op. Pt fall 09/05/21. Was carrying a heavy bin and slipped going up a step and both feet slipped off the step causing a lot of pain in the posterior thigh. Caused a lot of bruinsing and pain for 2 weeks after the fall. Kept walking for 6 weeks with his [place]lie and it didn't feel strong or stable; therefore sought further medical assessment. Was referred to [facility] for repair of tore R hamstring tendons off ischial tuberosity. 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 Prior Treatments and Tests Taking intermittently morphine /oxicodone, Tylenol, ASA for post-op blood thinning, Meloxicam as anti-inflammatory and Methylcarbonal (ms relaxor). Future Testing and Treatments Planned Next MD visit 01/09/22. Developmental History Developmental History Used crutches with knee replacement in 2013. Per pt, RLE PMH: meniscus tear - ACL in 1987, Meniscectomy in , Partial TKA 2008, TKA 2013. R Bunionectomy, R ankle tendon repair, 2 shoulder surgeries. Treatment Goals Patient/Caregiver Goals Pt goal is: Safely get to point to safely stand. Safely get through stage of healing to do strengthening at home of hamstrings. Balance standing with safety of hamstring tendon secure. Prior Functional Status Baseline Function- ADL's Needs Assist Baseline Function- Mobility Needs Assist Baseline Function- Gait Normal gait, no assistive device. 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 Baseline Function- Recreation/Hobbies 10 mile Hikes, coud drive 6 miles, general stiffness after driving long distances. Current Functional Impairments (Reported) Functional Limitations- ADL's Sitting tolerance - 1 minute before having to shift and move. Functional Limitations- Mobility/Gait Gait with crutches, NWBind RLE , wearing knee brace locked at 45 deg's flex. Functional Limitations- Work/School Retired. Functional Limitations- Recreation/ Not able to participate Hobbies Functional Limitations- Other Increased urination at nighttime (5 times per night). Personal Factors Other Personal Factors That May Effect Protocol limiting R Hip/knee Therapy/Recovery mobility & strengthening due to proper healing, R knee brace locked at 50 deg's flex for wks 0-6. Uncontrolled HBP PT-OP-C Subjective Start: 12/29/21 19:43 Freq: Status: Active Protocol: Document 03/26/22 12:54 NBM (Rec: 03/26/22 13:49 NBM [id number]) OP-PT Subjective Patient Comments Patient Comments Pt felt pretty good after last treatment session and went walking with the dog. He goes about 10,000 - 12,000 steps and that's about it for me. I do tolerate it better. PT-OP-D Balance Start: 12/29/21 19:43 Freq: Status: Active Protocol: Document 04/02/22 13:52 LRN (Rec: 04/02/22 15:15 LRN [id number]) Balance Tests Single Limb Standing Single Limb- Right 11 secs Single Limb- Left 1 minute PT-OP-G Mobility & Gait Start: 12/29/21 19:43 Freq: Status: Active Protocol: Document 01/04/22 13:01 LRN (Rec: 01/04/22 18:21 LRN [id number]) OP Gait Assessment Gait Gait Assistance Required: Standby Assistance Distance (Feet) 100 Able to Maintain Weight Bearing Status Yes During Gait Assistive Devices Assistive Device Axillary Crutches Factors Limiting Gait Function Factors Limiting Gait Function Decreased Activity Tolerance, Incoordination,Poor Safety Awareness Comments Gait Comments Pt at time not very steady with gait but was able to self correct. PT-OP-J Posture/Palpation/Skin Start: 12/29/21 19:43 Freq: Status: Active Protocol: Document 02/05/22 13:52 LRN (Rec: 02/05/22 17:13 LRN [id number]) Skin Assessment Other Assessments Skin Assessment Comments Discoloration in the posteromedial and posterolateral aspect of the R knee/thigh from knee to distal 1/3 of thigh. No pain on palpation. PT-OP-K Range of Motion Start: 12/29/21 19:43 Freq: Status: Active Protocol: Document 04/02/22 13:52 LRN (Rec: 04/02/22 15:15 LRN [id number]) Knee Goniometric Range of Motion Knee Right Knee ROM WFL Yes Patient Position Supine Flexion Active (degrees) 130 Extension Active (degrees) 0 Left Knee ROM WFL Yes Patient Position Sitting Comments WNL PT-OP-M Strength Start: 12/29/21 19:43 Freq: Status: Active Protocol: Document 04/02/22 13:52 LRN (Rec: 04/02/22 15:15 LRN [id number]) Knee Strength Knee Manual Muscle Testing Right Flexion (S2) 4+ Good+ Extension (L3) 5 Normal Left Flexion (S2) 4- Good- Extension (L3) 5 Normal PT-OP-Q Treatments Start: 12/29/21 19:43 Freq: Status: Active Protocol: Document 03/26/22 12:54 NBM (Rec: 03/26/22 13:49 NBM [id number]) Cardio Equipment Bicycle (Upright) Duration (Minutes) 6 Resistance 10 Seat Position 11 Therapeutic Exercises Supine Exercises SLR Supine Exercise Name SLR 30-45 deg's lift: Foot 12 & 2 O'Clock Side right Reps/Minutes 2 x10 each Bridging Supine Exercise Name DL concentric; SL eccentric Side bilateral Reps/Minutes 10 reps, 5 sec hold (verbal count for hold) Comments progressed per protocol; clinic only Heel slides Supine Exercise Name Heel slide Side right Reps/Minutes x10 Prone Exercises Knee flex Prone Exercise Name Conc knee flex/Assistive return Side right Equipment Used 3# Reps/Minutes 10x 2 Sitting Exercises stool scoot Sitting Exercise Name stool scoot Comments clinic only - cues for toes fwd Standing Exercises HS curls Side right Reps/Minutes 2 x 20 ea step ups Standing Exercise Name fwd/lat Equipment Used 4, BOSU blue side Reps/Minutes x10 ea forward T Standing Exercise Name forward T Side bilateral Equipment Used trek poles Hip Extension Standing Exercise Name Hip extension Side bilateral Resistance Lv 2 Reps/Minutes 2x10 ea sidesteps with theraband Side bilateral Resistance Green Reps/Minutes 4 x 10ft ea down and back Comments pt in mini squat position Manual Therapy Treatment Soft Tissue Mobilization Hamstring Body Location R HS Mobilization Type Oscillations,Rolling,Sustained Pressure Intensity/Depth Moderate Body Position Prone PT-OP-R Modalities Start: 12/29/21 19:43 Freq: Status: Active Protocol: Document 03/23/22 12:17 NBM (Rec: 04/08/22 19:42 NBM [id number]) Hot Pack/Cold Pack Treatment Cold Pack Location R hamstrings Patient Position Supine Treatment Duration (minutes) 10 Patient Tolerance Good Comments lumbar cold pack to R HS in supine w/ strap and pillow support PT-OP-T Assessment and Plan Start: 12/29/21 19:43 Freq: Status: Active Protocol: Document 03/26/22 12:54 NBM (Rec: 04/08/22 20:12 NBM [id number]) Physical Therapy Assessment Goals Four Impairment R Hamstring weakness Impairment Protocol: PROM of knee flexion only (strength 0/5). Short Term Goal (STG) Phase I: PROM R knee, no hip flexion during knee extension. Phase II: Pt able to tolerate beginning hamstring strengthening (avoiding lengthening of hamstring position (hip flex w/knee ext) ). Pt able to perform standing hip ext (knee straight), and preeti/conc strengthening of hamstrings on HEP per protocol safely for pt to feel safe in standing. (02/05/22: Pt tolerates PROM of R knee with no hip flexion - no pain or discomfort). 02/09/22: Pt tolerates PROM of R knee with no hip flexion w/ out pain or discomfort 02/20/22: phase II, added mini lunge and squat at rail knee flexion ROM >60 deg. STG Duration 03/29/22 (02/20/22: Progressing, in phase II) Lottery Manager Goal (LTG) Pt able to strengthen R hamstring in a lengthened hamstring position (per protocol) s/p wks 12-16 and will be able to balance standing with safety of hamstring tendon secure. 02/20/22: Education on Phase III not until 03/17/22. LTG Duration 04/26/22 education 03/17 start. Three Impairment Decreased Standing due to limited WBing in RLE Impairment Protocol limits standing to NWBing wks 0-2, TTWBing 2-6 wks. Short Term Goal (STG) Phase I: Pt will be able to walk with crutches and TTWBing through s/p wks 1-6. (01/23/22: Pt ambs with TTWBing and crutches) (02/02/22: End of week 6, pt ambs with TTWBing and crutches ). 02/09/22: End of week 7, pt ambs with TTWBing and crutches. STG Duration 02/15/22 (02/02/22: MET GOAL) Custodial Goal (LTG) Per protocol: Phase II (wks 5 -12) Normal gait, Functional mvmts w/o unloading the RLE while demonstrating good control. SLS greater than 15 secs. Normal 5/5 R hamstring strength w/knee in 90 deg's flexion at least 4/5. Pt will be able to safely stand. (02/22/22: Pt ambulates without AD, wide gait deviations with gait). LTG Duration 04/26/22 (02/22/22: Progressing Two Impairment Decreased R knee PROM/AROM Impairment s/p wks 0-6: No active knee ROM Passive R knee flexion limited by brace to 30 deg's flexion. Per protocol: No active R knee ext with flexion of R hip. Short Term Goal (STG) Improve R knee PROM (without hip flex) per rehab protocol. (02/05/22: Passive R Knee ext without hip flexion is 0 deg's ) 02/09/22: Passive R Knee ext w/ out hip flexion is 0 deg 02/16/22: AROM R knee flex 105 deg. STG Duration 02/15/22 Lottery Manager Goal (LTG) Phase II for R knee: R knee 0 -30 deg's. LTG Duration 04/26/22 One Impairment Lacks Self care Impairment Pt under adherence to protocol Short Term Goal (STG) Pt has good understanding phase I-II of self custodial program per rehab protocol. STG Duration 03/29/22 (01/23/21: MET GOAL) Lottery Manager Goal (LTG) Pt has good understanding and is independent in a phase III self custodial care program per rehab protocol. 02/20/22: education to adhere to not performing phase III activities until 03/17/22 then progress slowly for healing. LTG Duration 04/26/22 progressin02/20/22 Assessment Summary Assessment Pt is challenged w/ maintaining balance on unstable surface such as blue- side BOSU and recovers frequently with SEED CLEANER - balance improves slightly w/ cues for glute activation. Pt's form w/ forward T and sidestepping exercises improve with visual cues such as mirror or METAL MOULDER'S ASSISTANT mirroring exercise for pt. Physical Therapy Plan Frequency and Duration Frequency of Treatment 2x/Week Plan of Care Start Date 01/04/22 Plan of Care End Date 04/26/22 Therapeutic Interventions Therapeutic Interventions Aquatic Therapy,Balance Training,Gait Training,Home Exercise Program,Manual Therapy,Neuromuscular Re- education,Patient/Caregiver Education,Self-Care/Home Management,Soft Tissue Mobilization,Therapeutic Exercises Modalities Cold Pack/Ice Massage, Ultrasound Next Visit Focus/Plan Next Note Type Treatment Note Next Visit Plan Continue education on phase III precautions and protocol. POC: Recheck activities: Prone knee flex to 90 deg's with assist on return (hold ecc strengthening), lunges, squat <60 deg knees, standing leg extensions, Add double leg balance & when ready gait training. Monitor scar mobility. Per protocol core stabilization and hip (AB, ext ) strengthening. POC: Follow R Hamstring repair per protocol of Dr. Kolby Locke (see notes section in documentation system). See PRECAUTIONS (phase II) in Visit Information. Phase I: wks 1-6. Protective phase. Phase II: wks 6-12 (see new protocol). p/o 6-8 wks: Unlock hinged knee brace to 30 deg's flex, then 0 deg's flex /ext., wean off crutches and normalize gait, good control of mvmt including step up/down , squat, partial lunge (<60 deg's knee flex). Precautions: avoid dynamic stretching, no impact or running. Phase III: Usually 3 months after surgery, see protocol.
--- NOTE | 2022-03-30 13:10 | PT.OTN ---
Current Diagnoses Strain of muscle, fascia and tendon of the posterior muscle group at thigh level, right thigh, initial encounter (04/04/22) Physical Therapy Treatment Note PT-OP-A Visit Information Start: 12/29/21 19:43 Freq: Status: Active Protocol: Document 03/30/22 11:36 NBM (Rec: 03/30/22 12:17 NBM [id number]) Out-Patient Physical Therapy Visit Information Visit Information Visit Type Treatment Note Visit Start Time 11:36 Visit Stop Time 12:14 Total Visit Minutes 38 Visit Number 22 Number of TOW MATE Visits 3 Precautions Precautions PRECAUTIONS PHASE III: No pain during strength training. Post-activity soreness should resolve within 24 hours. PRECAUTIONS PHASE II: Avoid dynamic stretching, Avoid loading the hip at deep flexion angles, No impact or running. PT-OP-B Current Condition Start: 12/29/21 19:43 Freq: Status: Active Protocol: Document 01/04/22 13:01 LRN (Rec: 01/04/22 18:15 LRN [id number]) Current Condition History of Current Condition Onset Date 12/25/21 Current Complaints Impossible to get comfortable, not quite stable w/crutches. 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 Pt 10 days post op. Pt fall 09/05/21. Was carrying a heavy bin and slipped going up a step and both feet slipped off the step causing a lot of pain in the posterior thigh. Caused a lot of bruinsing and pain for 2 weeks after the fall. Kept walking for 6 weeks with his [place] and it didn't feel strong or stable; therefore sought further medical assessment. Was referred to [facility] for repair of tore R hamstring tendons off ischial tuberosity. 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 Prior Treatments and Tests Taking intermittently morphine /oxicodone, Tylenol, ASA for post-op blood thinning, Meloxicam as anti-inflammatory and Methylcarbonal (ms relaxor). Future Testing and Treatments Planned Next MD visit 01/09/22. Developmental History Developmental History Used crutches with knee replacement in 2013. Per pt, RLE PMH: meniscus tear - ACL in 1987, Meniscectomy in , Partial TKA 2008, TKA 2013. R Bunionectomy, R ankle tendon repair, 2 shoulder surgeries. Treatment Goals Patient/Caregiver Goals Pt goal is: Safely get to point to safely stand. Safely get through stage of healing to do strengthening at home of hamstrings. Balance standing with safety of hamstring tendon secure. Prior Functional Status Baseline Function- ADL's Needs Assist Baseline Function- Mobility Needs Assist Baseline Function- Gait Normal gait, no assistive device. 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 Baseline Function- Recreation/Hobbies 10 mile Hikes, coud drive 6 miles, general stiffness after driving long distances. Current Functional Impairments (Reported) Functional Limitations- ADL's Sitting tolerance - 1 minute before having to shift and move. Functional Limitations- Mobility/Gait Gait with crutches, NWBind RLE , wearing knee brace locked at 45 deg's flex. Functional Limitations- Work/School Retired. Functional Limitations- Recreation/ Not able to participate Hobbies Functional Limitations- Other Increased urination at nighttime (5 times per night). Personal Factors Other Personal Factors That May Effect Protocol limiting R Hip/knee Therapy/Recovery mobility & strengthening due to proper healing, R knee brace locked at 50 deg's flex for wks 0-6. Uncontrolled HBP PT-OP-C Subjective Start: 12/29/21 19:43 Freq: Status: Active Protocol: Document 03/30/22 11:36 NBM (Rec: 03/30/22 12:17 NBM [id number]) OP-PT Subjective Patient Comments Patient Comments Pt walked 3 miles yesterday with some sustained uphill and felt good. PT-OP-D Balance Start: 12/29/21 19:43 Freq: Status: Active Protocol: Document 04/02/22 13:52 LRN (Rec: 04/02/22 15:15 LRN [id number]) Balance Tests Single Limb Standing Single Limb- Right 11 secs Single Limb- Left 1 minute PT-OP-G Mobility & Gait Start: 12/29/21 19:43 Freq: Status: Active Protocol: Document 01/04/22 13:01 LRN (Rec: 01/04/22 18:21 LRN [id number]) OP Gait Assessment Gait Gait Assistance Required: Standby Assistance Distance (Feet) 100 Able to Maintain Weight Bearing Status Yes During Gait Assistive Devices Assistive Device Axillary Crutches Factors Limiting Gait Function Factors Limiting Gait Function Decreased Activity Tolerance, Incoordination,Poor Safety Awareness Comments Gait Comments Pt at time not very steady with gait but was able to self correct. PT-OP-J Posture/Palpation/Skin Start: 12/29/21 19:43 Freq: Status: Active Protocol: Document 02/05/22 13:52 LRN (Rec: 02/05/22 17:13 LRN [id number]) Skin Assessment Other Assessments Skin Assessment Comments Discoloration in the posteromedial and posterolateral aspect of the R knee/thigh from knee to distal 1/3 of thigh. No pain on palpation. PT-OP-K Range of Motion Start: 12/29/21 19:43 Freq: Status: Active Protocol: Document 04/02/22 13:52 LRN (Rec: 04/02/22 15:15 LRN [id number]) Knee Goniometric Range of Motion Knee Right Knee ROM WFL Yes Patient Position Supine Flexion Active (degrees) 130 Extension Active (degrees) 0 Left Knee ROM WFL Yes Patient Position Sitting Comments WNL PT-OP-M Strength Start: 12/29/21 19:43 Freq: Status: Active Protocol: Document 04/02/22 13:52 LRN (Rec: 04/02/22 15:15 LRN [id number]) Knee Strength Knee Manual Muscle Testing Right Flexion (S2) 4+ Good+ Extension (L3) 5 Normal Left Flexion (S2) 4- Good- Extension (L3) 5 Normal PT-OP-Q Treatments Start: 12/29/21 19:43 Freq: Status: Active Protocol: Document 03/30/22 11:36 NBM (Rec: 03/30/22 12:17 NBM [id number]) Cardio Equipment Bicycle (Upright) Duration (Minutes) 6 Resistance 10 Seat Position 11 Other cues for mimimal lat lean Therapeutic Exercises Sitting Exercises stool scoot Sitting Exercise Name fwd/bwd, laps Reps/Minutes fwd/bwd 30ft x 3, Comments cues for heel/toe, heels apart Standing Exercises forward T Standing Exercise Name forward T Side bilateral Equipment Used trek poles Comments cues for excessive hip rotation Hip Extension Standing Exercise Name Hip extension and abduction Side bilateral Resistance Lv 2 around ankles. Equipment Used rail Reps/Minutes 2x10 ea Comments cues for upright posture sidesteps with theraband Side bilateral Resistance Green Reps/Minutes 4 x 10ft ea down and back Comments pt in mini squat position modified Lunges Standing Exercise Name fwd/bwd Side bilateral Resistance AROM Equipment Used rial support Reps/Minutes x10 each LE Comments <60 deg knee flexion, painfree , cued space between BLE mini squat Standing Exercise Name <60 deg knee flexion Resistance AROM w/ no UE support Reps/Minutes x10 reps firm, x10 on blue BOSU Comments cued no hip rotation/knee drift inward; Neuro Re-Education Treatment Balance Activities single leg balance Surface firm, blue foam Reps/Duration 4 x 30 seconds each PT-OP-R Modalities Start: 12/29/21 19:43 Freq: Status: Active Protocol: Document 03/23/22 12:17 NBM (Rec: 04/08/22 19:42 NBM [id number]) Hot Pack/Cold Pack Treatment Cold Pack Location R hamstrings Patient Position Supine Treatment Duration (minutes) 10 Patient Tolerance Good Comments lumbar cold pack to R HS in supine w/ strap and pillow support PT-OP-T Assessment and Plan Start: 12/29/21 19:43 Freq: Status: Active Protocol: Document 03/30/22 11:36 NBM (Rec: 04/08/22 20:35 [facility] [id number]) Physical Therapy Assessment Goals Four Impairment R Hamstring weakness Impairment Protocol: PROM of knee flexion only (strength 0/5). Short Term Goal (STG) Phase I: PROM R knee, no hip flexion during knee extension. Phase II: Pt able to tolerate beginning hamstring strengthening (avoiding lengthening of hamstring position (hip flex w/knee ext) ). Pt able to perform standing hip ext (knee straight), and preeti/conc strengthening of hamstrings on HEP per protocol safely for pt to feel safe in standing. (02/05/22: Pt tolerates PROM of R knee with no hip flexion - no pain or discomfort). 02/09/22: Pt tolerates PROM of R knee with no hip flexion w/ out pain or discomfort 02/20/22: phase II, added mini lunge and squat at rail knee flexion ROM >60 deg. STG Duration 03/29/22 (02/20/22: Progressing, in phase II) Welfare Centre Manager Goal (LTG) Pt able to strengthen R hamstring in a lengthened hamstring position (per protocol) s/p wks 12-16 and will be able to balance standing with safety of hamstring tendon secure. 02/20/22: Education on Phase III not until 03/17/22. LTG Duration 04/26/22 education 03/17 start. Three Impairment Decreased Standing due to limited WBing in RLE Impairment Protocol limits standing to NWBing wks 0-2, TTWBing 2-6 wks. Short Term Goal (STG) Phase I: Pt will be able to walk with crutches and TTWBing through s/p wks 1-6. (01/23/22: Pt ambs with TTWBing and crutches) (02/02/22: End of week 6, pt ambs with TTWBing and crutches ). 02/09/22: End of week 7, pt ambs with TTWBing and crutches. STG Duration 02/15/22 (02/02/22: MET GOAL) Welfare Centre Manager Goal (LTG) Per protocol: Phase II (wks 5 -12) Normal gait, Functional mvmts w/o unloading the RLE while demonstrating good control. SLS greater than 15 secs. Normal 5/5 R hamstring strength w/knee in 90 deg's flexion at least 4/5. Pt will be able to safely stand. (02/22/22: Pt ambulates without AD, wide gait deviations with gait). LTG Duration 04/26/22 (02/22/22: Progressing) Two Impairment Decreased R knee PROM/AROM Impairment s/p wks 0-6: No active knee ROM Passive R knee flexion limited by brace to 30 deg's flexion. Per protocol: No active R knee ext with flexion of R hip. Short Term Goal (STG) Improve R knee PROM (without hip flex) per rehab protocol. (02/05/22: Passive R Knee ext without hip flexion is 0 deg's ) 02/09/22: Passive R Knee ext w/ out hip flexion is 0 deg 02/16/22: AROM R knee flex 105 deg. STG Duration 02/15/22 Detention Goal (LTG) Phase II for R knee: R knee 0 -30 deg's. LTG Duration 04/26/22 One Impairment Lacks Self care Impairment Pt under adherence to protocol Short Term Goal (STG) Pt has good understanding phase I-II of self fci program per rehab protocol. STG Duration 03/29/22 (01/23/21: MET GOAL) Detention Goal (LTG) Pt has good understanding and is independent in a phase III self fci care program per rehab protocol. 02/20/22: education to adhere to not performing phase III activities until 03/17/22 then progress slowly for healing. LTG Duration 04/26/22 progressin02/20/22 Assessment Summary Assessment Pt continues to be challenged with self-awareness for form w / exercises but self-awareness improves w/ cueing and repitetion. Physical Therapy Plan Frequency and Duration Frequency of Treatment 2x/Week Plan of Care Start Date 01/04/22 Plan of Care End Date 04/26/22 Therapeutic Interventions Therapeutic Interventions Aquatic Therapy,Balance Training,Gait Training,Home Exercise Program,Manual Therapy,Neuromuscular Re- education,Patient/Caregiver Education,Self-Care/Home Management,Soft Tissue Mobilization,Therapeutic Exercises Modalities Cold Pack/Ice Massage, Ultrasound Next Visit Focus/Plan Next Note Type Treatment Note Next Visit Plan Continue education on phase III precautions and protocol. POC: Recheck activities: Prone knee flex to 90 deg's with assist on return (hold ecc strengthening), lunges, squat <60 deg knees, standing leg extensions, Add double leg balance & when ready gait training. Monitor scar mobility. Per protocol core stabilization and hip (AB, ext ) strengthening. POC: Follow R Hamstring repair per protocol of Dr. Kolby Locke (see notes section in documentation system). See PRECAUTIONS (phase II) in Visit Information. Phase I: wks 1-6. Protective phase. Phase II: wks 6-12 (see new protocol). p/o 6-8 wks: Unlock hinged knee brace to 30 deg's flex, then 0 deg's flex /ext., wean off crutches and normalize gait, good control of mvmt including step up/down , squat, partial lunge (<60 deg's knee flex). Precautions: avoid dynamic stretching, no impact or running. Phase III: Usually 3 months after surgery, see protocol.
--- NOTE | 2022-04-02 16:56 | PT.OTN ---
Current Diagnoses Strain of muscle, fascia and tendon of the posterior muscle group at thigh level, right thigh, initial encounter (04/02/22) Physical Therapy Treatment Note PT-OP-A Visit Information Start: 12/29/21 19:43 Freq: Status: Active Protocol: Document 04/02/22 13:52 LRN (Rec: 04/02/22 15:15 LRN [id number]) Out-Patient Physical Therapy Visit Information Visit Information Visit Type Treatment Note Visit Start Time 13:52 Visit Stop Time 14:36 Total Visit Minutes 44 Visit Number 23 Precautions Precautions PRECAUTIONS PHASE III: No pain during strength training. Post-activity soreness should resolve within 24 hours. PRECAUTIONS PHASE II: Avoid dynamic stretching, Avoid loading the hip at deep flexion angles, No impact or running. PT-OP-B Current Condition Start: 12/29/21 19:43 Freq: Status: Active Protocol: Document 01/04/22 13:01 LRN (Rec: 01/04/22 18:15 LRN [id number]) Current Condition History of Current Condition Onset Date 12/25/21 Current Complaints Impossible to get comfortable, not quite stable w/crutches. 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 Pt 10 days post op. Pt fall 09/05/21. Was carrying a heavy bin and slipped going up a step and both feet slipped off the step causing a lot of pain in the posterior thigh. Caused a lot of bruinsing and pain for 2 weeks after the fall. Kept walking for 6 weeks with his [place] and it didn't feel strong or stable; therefore sought further medical assessment. Was referred to [place] for repair of tore R hamstring tendons off ischial tuberosity. 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 Prior Treatments and Tests Taking intermittently morphine /oxicodone, Tylenol, ASA for post-op blood thinning, Meloxicam as anti-inflammatory and Methylcarbonal (ms relaxor). Future Testing and Treatments Planned Next MD visit 01/09/22. Developmental History Developmental History Used crutches with knee replacement in 2013. Per pt, RLE PMH: meniscus tear - ACL in 1987, Meniscectomy in , Partial TKA 2008, TKA 2013. R Bunionectomy, R ankle tendon repair, 2 shoulder surgeries. Treatment Goals Patient/Caregiver Goals Pt goal is: Safely get to point to safely stand. Safely get through stage of healing to do strengthening at home of hamstrings. Balance standing with safety of hamstring tendon secure. Prior Functional Status Baseline Function- ADL's Needs Assist Baseline Function- Mobility Needs Assist Baseline Function- Gait Normal gait, no assistive device. 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 Baseline Function- Recreation/Hobbies 10 mile Hikes, coud drive 6 miles, general stiffness after driving long distances. Current Functional Impairments (Reported) Functional Limitations- ADL's Sitting tolerance - 1 minute before having to shift and move. Functional Limitations- Mobility/Gait Gait with crutches, NWBind RLE , wearing knee brace locked at 45 deg's flex. Functional Limitations- Work/School Retired. Functional Limitations- Recreation/ Not able to participate Hobbies Functional Limitations- Other Increased urination at nighttime (5 times per night). Personal Factors Other Personal Factors That May Effect Protocol limiting R Hip/knee Therapy/Recovery mobility & strengthening due to proper healing, R knee brace locked at 50 deg's flex for wks 0-6. Uncontrolled HBP PT-OP-C Subjective Start: 12/29/21 19:43 Freq: Status: Active Protocol: Document 04/02/22 13:52 LRN (Rec: 04/02/22 15:15 LRN [id number]) OP-PT Subjective Patient Comments Patient Comments See's his doctor on 04/16/22. States swelling behind the R knee is severe. PT-OP-D Balance Start: 12/29/21 19:43 Freq: Status: Active Protocol: Document 04/02/22 13:52 LRN (Rec: 04/02/22 15:15 LRN [id number]) Balance Tests Single Limb Standing Single Limb- Right 11 secs Single Limb- Left 1 minute PT-OP-G Mobility & Gait Start: 12/29/21 19:43 Freq: Status: Active Protocol: Document 01/04/22 13:01 LRN (Rec: 01/04/22 18:21 LRN [id number]) OP Gait Assessment Gait Gait Assistance Required: Standby Assistance Distance (Feet) 100 Able to Maintain Weight Bearing Status Yes During Gait Assistive Devices Assistive Device Axillary Crutches Factors Limiting Gait Function Factors Limiting Gait Function Decreased Activity Tolerance, Incoordination,Poor Safety Awareness Comments Gait Comments Pt at time not very steady with gait but was able to self correct. PT-OP-J Posture/Palpation/Skin Start: 12/29/21 19:43 Freq: Status: Active Protocol: Document 02/05/22 13:52 LRN (Rec: 02/05/22 17:13 LRN [id number]) Skin Assessment Other Assessments Skin Assessment Comments Discoloration in the posteromedial and posterolateral aspect of the R knee/thigh from knee to distal 1/3 of thigh. No pain on palpation. PT-OP-K Range of Motion Start: 12/29/21 19:43 Freq: Status: Active Protocol: Document 04/02/22 13:52 LRN (Rec: 04/02/22 15:15 LRN [id number]) Knee Goniometric Range of Motion Knee Right Knee ROM WFL Yes Patient Position Supine Flexion Active (degrees) 130 Extension Active (degrees) 0 Left Knee ROM WFL Yes Patient Position Sitting Comments WNL PT-OP-M Strength Start: 12/29/21 19:43 Freq: Status: Active Protocol: Document 04/02/22 13:52 LRN (Rec: 04/02/22 15:15 LRN [id number]) Knee Strength Knee Manual Muscle Testing Right Flexion (S2) 4+ Good+ Extension (L3) 5 Normal Left Flexion (S2) 4- Good- Extension (L3) 5 Normal PT-OP-Q Treatments Start: 12/29/21 19:43 Freq: Status: Active Protocol: Document 04/02/22 13:52 LRN (Rec: 04/02/22 15:15 LRN [id number]) Cardio Equipment Bicycle (Upright) Duration (Minutes) 6 Resistance 6-10 Seat Position 11 Other cues for mimimal lat lean Therapeutic Exercises Supine Exercises SLR Supine Exercise Name SLR 30-45 deg's lift: Foot 12 & 2 O'Clock Side right Reps/Minutes 3 x10 each Bridging Supine Exercise Name DL concentric; SL eccentric Side bilateral Reps/Minutes 10 reps, 5 sec hold (verbal count for hold) Comments progressed per protocol; clinic only Heel slides Supine Exercise Name Heel slide Side right Comments Knee AROM taken Standing Exercises Hip Extension Standing Exercise Name Hip extension Side bilateral Resistance Lv 2 around ankles. Reps/Minutes 3x10 ea Neuro Re-Education Treatment Balance Activities single leg balance Details R SLS with L LE swings: knee ext, hip AB, Hip Ext. Surface firm, blue foam Reps/Duration 4 x 30 seconds each Self-Care/Home Management Treatment Education Patient Education Home Exercise Program Other Education Educated pt on phase III precautions and protocol. Discussed progression of exercise. PT-OP-T Assessment and Plan Start: 12/29/21 19:43 Freq: Status: Active Protocol: Document 04/02/22 13:52 LRN (Rec: 04/02/22 15:15 LRN [id number]) Physical Therapy Assessment Goals Five Impairment Decreased Balance Impairment SLS 11 secs right, 60 secs left. (Arms crossed over chest, lift foot to opposite ankle - not touching). Short Term Goal (STG) RLE SLS 30 secs 04/02/22: 11 secs. STG Duration 04/26/22 Floor Representative Goal (LTG) R LE SLS 60 secs LTG Duration 05/14/22 Four Impairment R Hamstring weakness Impairment Protocol: PROM of knee flexion only (strength 0/5). Short Term Goal (STG) Phase I: PROM R knee, no hip flexion during knee extension. Phase II: Pt able to tolerate beginning hamstring strengthening (avoiding lengthening of hamstring position (hip flex w/knee ext) ). Pt able to perform standing hip ext (knee straight), and preeti/conc strengthening of hamstrings on HEP per protocol safely for pt to feel safe in standing. (02/05/22: Pt tolerates PROM of R knee with no hip flexion - no pain or discomfort). 02/09/22: Pt tolerates PROM of R knee with no hip flexion w/ out pain or discomfort 02/20/22: phase II, added mini lunge and squat at rail knee flexion ROM >60 deg. STG Duration 03/29/22 (04/02/22: MET GOAL) Floor Representative Goal (LTG) Pt able to strengthen R hamstring in a lengthened hamstring position (per protocol) s/p wks 12-16 and will be able to balance standing with safety of hamstring tendon secure. 02/20/22: Education on Phase III not until 03/17/22. (04/02/22: SLS is 11 sec right , 1 minute left). LTG Duration 04/26/22 (04/02/22: Progressing into phase III). Three Impairment Decreased Standing due to limited WBing in RLE Impairment Protocol limits standing to NWBing wks 0-2, TTWBing 2-6 wks. Short Term Goal (STG) Phase I: Pt will be able to walk with crutches and TTWBing through s/p wks 1-6. (01/23/22: Pt ambs with TTWBing and crutches) (02/02/22: End of week 6, pt ambs with TTWBing and crutches ). 02/09/22: End of week 7, pt ambs with TTWBing and crutches. STG Duration 02/15/22 (02/02/22: MET GOAL) Floor Representative Goal (LTG) Per protocol: Phase II (wks 5 -12) Normal gait, Functional mvmts w/o unloading the RLE while demonstrating good control. SLS greater than 15 secs. Normal 5/5 R hamstring strength w/knee in 90 deg's flexion at least 4/5. Pt will be able to safely stand. (02/22/22: Pt ambulates without AD, wide gait deviations with gait). (04/02/22: Pt reports his gait is normal for him - met goal. R knee Hamstring strength is 4+/5 - met goal. Pt is able to safely stand and without assistive devices - met goal. Pt still unloading some weight off RLE with functional activities; therefore lacking control. RLE SLS is 11 secs) . LTG Duration 04/26/22 (04/02/22: Partially met goal) Two Impairment Decreased R knee PROM/AROM Impairment s/p wks 0-6: No active knee ROM Passive R knee flexion limited by brace to 30 deg's flexion. Per protocol: No active R knee ext with flexion of R hip. Short Term Goal (STG) Improve R knee PROM (without hip flex) per rehab protocol. (02/05/22: Passive R Knee ext without hip flexion is 0 deg's ) 02/09/22: Passive R Knee ext w/ out hip flexion is 0 deg 02/16/22: AROM R knee flex 105 deg. (04/02/22: Prone Active R knee flexion is 90 deg's) STG Duration 02/15/22 (04/02/22: MET GOAL) Floor Representative Goal (LTG) Phase II for R knee: R knee 0 -30 deg's. (04/02/22: R knee AROM in supine is 0-130 deg's) LTG Duration 04/26/22 (04/02/22: MET GOAL) One Impairment Lacks Self care Impairment Pt under adherence to protocol Short Term Goal (STG) Pt has good understanding phase I-II of self [facility]ent[facility] program per rehab protocol. STG Duration 03/29/22 (01/23/21: MET GOAL) Skilled Nursing Goal (LTG) Pt has good understanding and is independent in a phase III self penitentiary care program per rehab protocol. 02/20/22: education to adhere to not performing phase III activities until 03/17/22 then progress slowly for healing. LTG Duration 05/14/22 (04/02/22: Progressing) Progress Towards Goals Progress Comments Goal #1: LTG progressed Goal #2: MET STG and LTG. Goal #3: Partially met. Goal #4: MET STG, LTG progressed. Goal #5: Assessment Summary Assessment Pt reports being 14 wks post op; therefore is 2 weeks into Phase III (post op 12-20 wks). The swelling behind the knee will need to be further assessed for hamstring involvement. From phase II the pt is able to perform prone knee flex to 90 deg's without assist on return (ecc strengthening). He has been weaned off crutches for quite some time and he reports his gait is his normal. We are working on good control of mvmt including step up/down, squat and partial lunge (<60 deg's knee flex). He is able to perform standing leg extensions with resistance. The pt was not assessed on his ability to squat or perform partial lunges due to time constraints; therefore they will be assessed at his next apppointment. The pt has decreased RLE SLS ability and notes LOB recently; therefore further therapy for balance training and exercises for good control of movement (step up/downs, squats, and partial lunges of < 60 deg's knee flexion). The pt will benefit from continued physical therapy to improve his balance , gait, and progress him farther into phase III of the protocol for the pt to be independent in a HEP. Physical Therapy Plan Frequency and Duration Frequency of Treatment 2x/Week Duration of treatment (weeks) 6 Plan of Care Start Date 04/02/22 Plan of Care End Date 05/14/22 Therapeutic Interventions Therapeutic Interventions Balance Training,Gait Training ,Home Exercise Program,Manual Therapy,Neuromuscular Re- education,Patient/Caregiver Education,Self-Care/Home Management,Soft Tissue Mobilization,Therapeutic Exercises Modalities Cold Pack/Ice Massage Next Visit Focus/Plan Next Note Type Treatment Note Next Visit Plan Send referring physician update before 04/16/22 appointment. POC: Follow R Hamstring repair per protocol of Dr. Kolby Locke (see notes section in documentation system). Phase II precautions were: avoid dynamic stretching, no impact or running. Meet phase II goals: good control of mvmt including step up/down, squat, partial lunge (<60 deg's knee flex). Recheck activities: lunges & squat <60 deg knees, and check scar mobility. Pt in phase III of protocol, usually 3 months after surgery . Add double and single leg balance & gait training. Per protocol core stabilization and hip (AB, ext ) strengthening.
--- NOTE | 2022-04-04 11:18 | PT.OTN ---
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 Post-activity soreness should resolve within 24 hours. PRECAUTIONS PHASE II: Avoid dynamic stretching, Avoid loading the hip at deep flexion angles, No impact or running. PT-OP-B Current Condition Start: 12/29/21 19:43 Freq: Status: Active Protocol: Document 01/04/22 13:01 LRN (Rec: 01/04/22 18:15 LRN [id number]) Current Condition History of Current Condition Onset Date 12/25/21 Current Complaints Impossible to get comfortable, not quite stable w/crutches. 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 Pt 10 days post op. Pt fall 09/05/21. Was carrying a heavy bin and slipped going up a step and both feet slipped off the step causing a lot of pain in the posterior thigh. Caused a lot of bruinsing and pain for 2 weeks after the fall. Kept walking for 6 weeks with his [place] and it didn't feel strong or stable; therefore sought further medical assessment. Was referred to [facility] for repair of tore R hamstring tendons off ischial tuberosity. 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 Prior Treatments and Tests Taking intermittently morphine /oxicodone, Tylenol, ASA for post-op blood thinning, Meloxicam as anti-inflammatory and Methylcarbonal (ms relaxor). Future Testing and Treatments Planned Next MD visit 01/09/22. Developmental History Developmental History Used crutches with knee replacement in 2013. Per pt, RLE PMH: meniscus tear - ACL in 1987, Meniscectomy in , Partial TKA 2008, TKA 2013. R Bunionectomy, R ankle tendon repair, 2 shoulder surgeries. Treatment Goals Patient/Caregiver Goals Pt goal is: Safely get to point to safely stand. Safely get through stage of healing to do strengthening at home of hamstrings. Balance standing with safety of hamstring tendon secure. Prior Functional Status Baseline Function- ADL's Needs Assist Baseline Function- Mobility Needs Assist Baseline Function- Gait Normal gait, no assistive device. 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 Baseline Function- Recreation/Hobbies 10 mile Hikes, coud drive 6 miles, general stiffness after driving long distances. Current Functional Impairments (Reported) Functional Limitations- ADL's Sitting tolerance - 1 minute before having to shift and move. Functional Limitations- Mobility/Gait Gait with crutches, NWBind RLE , wearing knee brace locked at 45 deg's flex. Functional Limitations- Work/School Retired. Functional Limitations- Recreation/ Not able to participate Hobbies Functional Limitations- Other Increased urination at nighttime (5 times per night). Personal Factors Other Personal Factors That May Effect Protocol limiting R Hip/knee Therapy/Recovery mobility & strengthening due to proper healing, R knee brace locked at 50 deg's flex for wks 0-6. Uncontrolled HBP PT-OP-C Subjective Start: 12/29/21 19:43 Freq: Status: Active Protocol: Document 04/04/22 09:38 AW (Rec: 04/04/22 11:18 AW [id number]) OP-PT Subjective Patient Comments Patient Comments Pt states swelling behind knee is stable, no better. Hiked around [place] recently and had no soreness. PT-OP-D Balance Start: 12/29/21 19:43 Freq: Status: Active Protocol: Document 04/02/22 13:52 LRN (Rec: 04/02/22 15:15 LRN [id number]) Balance Tests Single Limb Standing Single Limb- Right 11 secs Single Limb- Left 1 minute PT-OP-G Mobility & Gait Start: 12/29/21 19:43 Freq: Status: Active Protocol: Document 01/04/22 13:01 LRN (Rec: 01/04/22 18:21 LRN [id number]) OP Gait Assessment Gait Gait Assistance Required: Standby Assistance Distance (Feet) 100 Able to Maintain Weight Bearing Status Yes During Gait Assistive Devices Assistive Device Axillary Crutches Factors Limiting Gait Function Factors Limiting Gait Function Decreased Activity Tolerance, Incoordination,Poor Safety Awareness Comments Gait Comments Pt at time not very steady with gait but was able to self correct. PT-OP-J Posture/Palpation/Skin Start: 12/29/21 19:43 Freq: Status: Active Protocol: Document 02/05/22 13:52 LRN (Rec: 02/05/22 17:13 LRN [id number]) Skin Assessment Other Assessments Skin Assessment Comments Discoloration in the posteromedial and posterolateral aspect of the R knee/thigh from knee to distal 1/3 of thigh. No pain on palpation. PT-OP-K Range of Motion Start: 12/29/21 19:43 Freq: Status: Active Protocol: Document 04/02/22 13:52 LRN (Rec: 04/02/22 15:15 LRN [id number]) Knee Goniometric Range of Motion Knee Right Knee ROM WFL Yes Patient Position Supine Flexion Active (degrees) 130 Extension Active (degrees) 0 Left Knee ROM WFL Yes Patient Position Sitting Comments WNL PT-OP-M Strength Start: 12/29/21 19:43 Freq: Status: Active Protocol: Document 04/02/22 13:52 LRN (Rec: 04/02/22 15:15 LRN [id number]) Knee Strength Knee Manual Muscle Testing Right Flexion (S2) 4+ Good+ Extension (L3) 5 Normal Left Flexion (S2) 4- Good- Extension (L3) 5 Normal PT-OP-Q Treatments Start: 12/29/21 19:43 Freq: Status: Active Protocol: Document 04/04/22 09:38 AW (Rec: 04/04/22 11:18 AW [id number]) Cardio Equipment Bicycle (Upright) Duration (Minutes) 6 Resistance 11 Seat Position 11 Other cues for mimimal lat lean Therapeutic Exercises Standing Exercises step down Standing Exercise Name step down Side right Equipment Used 4 step Comments cued neutral hip rotation; fwd translation R knee step ups Standing Exercise Name fwd/lat Equipment Used 8 step Reps/Minutes x10 ea Hip Extension Standing Exercise Name Hip extension and abduction Side bilateral Resistance Lv 2 around ankles. Reps/Minutes 3x10 ea Comments cues for no trunk lean modified Lunges Side bilateral Resistance AROM Equipment Used no UE support Reps/Minutes x10 each LE Comments <60 deg knee flexion, painfree , cued space between BLE mini squat Standing Exercise Name <60 deg knee flexion Resistance AROM w/ no UE support Reps/Minutes 2x10 reps Comments cued no hip rotation/knee drift inward; TB at knees helped Neuro Re-Education Treatment Balance Activities single leg balance Details R SLS with L LE swings: knee ext, hip AB, Hip Ext. Surface firm, blue foam Reps/Duration 4 x 30 seconds each Weightshifting Details Fwd/Bwd/Lat, feet apart/feet together, EO/EC Surface firm Equipment // bars Reps/Duration 4 min Comments EC challenging added to HEP w/ corner and chair Self-Care/Home Management Treatment Education Patient Education Home Exercise Program Other Education Add squats <60 deg knee flexion, watch hip rotation for knee collapse. PT-OP-T Assessment and Plan Start: 12/29/21 19:43 Freq: Status: Active Protocol: Document 04/04/22 09:38 AW (Rec: 04/04/22 11:18 AW [id number]) Physical Therapy Assessment Goals Five Impairment Decreased Balance Impairment SLS 11 secs right, 60 secs left. (Arms crossed over chest, lift foot to opposite ankle - not touching). Short Term Goal (STG) RLE SLS 30 secs 04/02/22: 11 secs. STG Duration 04/26/22 [facility] Goal (LTG) R LE SLS 60 secs LTG Duration 05/14/22 Four Impairment R Hamstring weakness Impairment Protocol: PROM of knee flexion only (strength 0/5). Short Term Goal (STG) Phase I: PROM R knee, no hip flexion during knee extension. Phase II: Pt able to tolerate beginning hamstring strengthening (avoiding lengthening of hamstring position (hip flex w/knee ext) ). Pt able to perform standing hip ext (knee straight), and preeti/conc strengthening of hamstrings on HEP per protocol safely for pt to feel safe in standing. (02/05/22: Pt tolerates PROM of R knee with no hip flexion - no pain or discomfort). 02/09/22: Pt tolerates PROM of R knee with no hip flexion w/ out pain or discomfort 02/20/22: phase II, added mini lunge and squat at rail knee flexion ROM >60 deg. STG Duration 03/29/22 (04/02/22: MET GOAL) [facility] Goal (LTG) Pt able to strengthen R hamstring in a lengthened hamstring position (per protocol) s/p wks 12-16 and will be able to balance standing with safety of hamstring tendon secure. 02/20/22: Education on Phase III not until 03/17/22. (04/02/22: SLS is 11 sec right , 1 minute left). LTG Duration 04/26/22 (04/02/22: Progressing into phase III). Three Impairment Decreased Standing due to limited WBing in RLE Impairment Protocol limits standing to NWBing wks 0-2, TTWBing 2-6 wks. Short Term Goal (STG) Phase I: Pt will be able to walk with crutches and TTWBing through s/p wks 1-6. (01/23/22: Pt ambs with TTWBing and crutches) (02/02/22: End of week 6, pt ambs with TTWBing and crutches ). 02/09/22: End of week 7, pt ambs with TTWBing and crutches. STG Duration 02/15/22 (02/02/22: MET GOAL) [facility] Goal (LTG) Per protocol: Phase II (wks 5 -12) Normal gait, Functional mvmts w/o unloading the RLE while demonstrating good control. SLS greater than 15 secs. Normal 5/5 R hamstring strength w/knee in 90 deg's flexion at least 4/5. Pt will be able to safely stand. (02/22/22: Pt ambulates without AD, wide gait deviations with gait). (04/02/22: Pt reports his gait is normal for him - met goal. R knee Hamstring strength is 4+/5 - met goal. Pt is able to safely stand and without assistive devices - met goal. Pt still unloading some weight off RLE with functional activities; therefore lacking control. RLE SLS is 11 secs) . LTG Duration 04/26/22 (04/02/22: Partially met goal) Two Impairment Decreased R knee PROM/AROM Impairment s/p wks 0-6: No active knee ROM Passive R knee flexion limited by brace to 30 deg's flexion. Per protocol: No active R knee ext with flexion of R hip. Short Term Goal (STG) Improve R knee PROM (without hip flex) per rehab protocol. (02/05/22: Passive R Knee ext without hip flexion is 0 deg's ) 02/09/22: Passive R Knee ext w/ out hip flexion is 0 deg 02/16/22: AROM R knee flex 105 deg. (04/02/22: Prone Active R knee flexion is 90 deg's) STG Duration 02/15/22 (04/02/22: MET GOAL) [facility] Goal (LTG) Phase II for R knee: R knee 0 -30 deg's. (04/02/22: R knee AROM in supine is 0-130 deg's) LTG Duration 04/26/22 (04/02/22: MET GOAL) One Impairment Lacks Self care Impairment Pt under adherence to protocol Short Term Goal (STG) Pt has good understanding phase I-II of self [facility] program per rehab protocol. STG Duration 03/29/22 (01/23/21: MET GOAL) [facility] Goal (LTG) Pt has good understanding and is independent in a phase III self [facility] care program per rehab protocol. 02/20/22: education to adhere to not performing phase III activities until 03/17/22 then progress slowly for healing. LTG Duration 05/14/22 (04/02/22: Progressing) Progress Towards Goals Progress Comments Goal #1: LTG progressed Goal #2: MET STG and LTG. Goal #3: Partially met. Goal #4: MET STG, LTG progressed. Goal #5: Assessment Summary Assessment Pt benefits from education on hip/knee relationship and mirror feedback of knee posture during squats. He would like to add some core strength to therapy exercises which is in alignment with protocol. Plan to work core strength next vist Physical Therapy Plan Frequency and Duration Frequency of Treatment 2x/Week Duration of treatment (weeks) 6 Plan of Care Start Date 04/02/22 Plan of Care End Date 05/18/22 Therapeutic Interventions Therapeutic Interventions Balance Training,Gait Training ,Home Exercise Program,Manual Therapy,Neuromuscular Re- education,Patient/Caregiver Education,Self-Care/Home Management,Soft Tissue Mobilization,Therapeutic Exercises Modalities Cold Pack/Ice Massage Next Visit Focus/Plan Next Note Type Treatment Note Next Visit Plan CORE STRENGTH. Continue step ups, downs. Add lateral step up/down POC: Follow R Hamstring repair per protocol of Dr. Kolby Locke (see notes section in documentation system). Phase II precautions were: avoid dynamic stretching, no impact or running. Meet phase II goals: good control of mvmt including step up/down, squat, partial lunge (<60 deg's knee flex). Recheck activities: lunges & squat <60 deg knees, and check scar mobility. Pt in phase III of protocol, usually 3 months after surgery . Add double and single leg balance & gait training. Per protocol core stabilization and hip (AB, ext ) strengthening.
--- NOTE | 2022-04-13 16:07 | PT.OTN ---
Current Diagnoses Strain of muscle, fascia and tendon of the posterior muscle group at thigh level, right thigh, initial encounter (04/13/22) Physical Therapy Treatment Note PT-OP-A Visit Information Start: 12/29/21 19:43 Freq: Status: Active Protocol: Document 04/13/22 09:48 LRN (Rec: 04/13/22 10:32 LRN [id number]) Out-Patient Physical Therapy Visit Information Visit Information Visit Type Treatment Note Visit Start Time 09:48 Visit Stop Time 10:30 Total Visit Minutes 42 Visit Number 25 Evaluation Information Evaluation Date 01/04/22 Precautions Precautions PRECAUTIONS PHASE III: No pain during strength training. Post-activity soreness should resolve within 24 hours. PRECAUTIONS PHASE II: Avoid dynamic stretching, Avoid loading the hip at deep flexion angles, No impact or running. PT-OP-B Current Condition Start: 12/29/21 19:43 Freq: Status: Active Protocol: Document 01/04/22 13:01 LRN (Rec: 01/04/22 18:15 LRN [id number]) Current Condition History of Current Condition Onset Date 12/25/21 Current Complaints Impossible to get comfortable, not quite stable w/crutches. 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 Pt 10 days post op. Pt fall 09/05/21. Was carrying a heavy bin and slipped going up a step and both feet slipped off the step causing a lot of pain in the posterior thigh. Caused a lot of bruinsing and pain for 2 weeks after the fall. Kept walking for 6 weeks with his [place] and it didn't feel strong or stable; therefore sought further medical assessment. Was referred to [facility] for repair of tore R hamstring tendons off ischial tuberosity. 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 Prior Treatments and Tests Taking intermittently morphine /oxicodone, Tylenol, ASA for post-op blood thinning, Meloxicam as anti-inflammatory and Methylcarbonal (ms relaxor). Future Testing and Treatments Planned Next MD visit 01/09/22. Developmental History Developmental History Used crutches with knee replacement in 2013. Per pt, RLE PMH: meniscus tear - ACL in 1987, Meniscectomy in , Partial TKA 2008, TKA 2013. R Bunionectomy, R ankle tendon repair, 2 shoulder surgeries. Treatment Goals Patient/Caregiver Goals Pt goal is: Safely get to point to safely stand. Safely get through stage of healing to do strengthening at home of hamstrings. Balance standing with safety of hamstring tendon secure. Prior Functional Status Baseline Function- ADL's Needs Assist Baseline Function- Mobility Needs Assist Baseline Function- Gait Normal gait, no assistive device. 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 Baseline Function- Recreation/Hobbies 10 mile Hikes, coud drive 6 miles, general stiffness after driving long distances. Current Functional Impairments (Reported) Functional Limitations- ADL's Sitting tolerance - 1 minute before having to shift and move. Functional Limitations- Mobility/Gait Gait with crutches, NWBind RLE , wearing knee brace locked at 45 deg's flex. Functional Limitations- Work/School Retired. Functional Limitations- Recreation/ Not able to participate Hobbies Functional Limitations- Other Increased urination at nighttime (5 times per night). Personal Factors Other Personal Factors That May Effect Protocol limiting R Hip/knee Therapy/Recovery mobility & strengthening due to proper healing, R knee brace locked at 50 deg's flex for wks 0-6. Uncontrolled HBP PT-OP-C Subjective Start: 12/29/21 19:43 Freq: Status: Active Protocol: Document 04/13/22 09:48 LRN (Rec: 04/13/22 10:32 LRN [id number]) OP-PT Subjective Patient Comments Patient Comments R thigh is feeling good, overall fitness is not good. Next MD visit is 04/20/22. PT-OP-D Balance Start: 12/29/21 19:43 Freq: Status: Active Protocol: Document 04/13/22 09:48 LRN (Rec: 04/13/22 10:32 LRN [id number]) Balance Tests Single Limb Standing Single Limb- Right 46 secs arms by sides, 60+ with arms acros chest. PT-OP-G Mobility & Gait Start: 12/29/21 19:43 Freq: Status: Active Protocol: Document 01/04/22 13:01 LRN (Rec: 01/04/22 18:21 LRN [id number]) OP Gait Assessment Gait Gait Assistance Required: Standby Assistance Distance (Feet) 100 Able to Maintain Weight Bearing Status Yes During Gait Assistive Devices Assistive Device Axillary Crutches Factors Limiting Gait Function Factors Limiting Gait Function Decreased Activity Tolerance, Incoordination,Poor Safety Awareness Comments Gait Comments Pt at time not very steady with gait but was able to self correct. PT-OP-J Posture/Palpation/Skin Start: 12/29/21 19:43 Freq: Status: Active Protocol: Document 02/05/22 13:52 LRN (Rec: 02/05/22 17:13 LRN [id number]) Skin Assessment Other Assessments Skin Assessment Comments Discoloration in the posteromedial and posterolateral aspect of the R knee/thigh from knee to distal 1/3 of thigh. No pain on palpation. PT-OP-K Range of Motion Start: 12/29/21 19:43 Freq: Status: Active Protocol: Document 04/02/22 13:52 LRN (Rec: 04/02/22 15:15 LRN [id number]) Knee Goniometric Range of Motion Knee Right Knee ROM WFL Yes Patient Position Supine Flexion Active (degrees) 130 Extension Active (degrees) 0 Left Knee ROM WFL Yes Patient Position Sitting Comments WNL PT-OP-M Strength Start: 12/29/21 19:43 Freq: Status: Active Protocol: Document 04/13/22 09:48 LRN (Rec: 04/13/22 10:32 LRN [id number]) Knee Strength Knee Manual Muscle Testing Right Flexion (S2) 4 Good Comments Lateral hamstrring strength is 4/5 Medial hamstring strength is 4 +/5 PT-OP-Q Treatments Start: 12/29/21 19:43 Freq: Status: Active Protocol: Document 04/13/22 09:48 LRN (Rec: 04/13/22 10:32 LRN [id number]) Cardio Equipment Bicycle (Upright) Duration (Minutes) 8 Resistance 11 Seat Position 11 Other cues for mimimal lat lean Therapeutic Exercises Standing Exercises HS curls Standing Exercise Name Standing knee flex: Robe and conc/Ecc of med/lat HS Side right Reps/Minutes 10x 10 robe, 2 x 20 conc/ecc mini squat Standing Exercise Name <60 deg knee flexion Resistance AROM w/ no UE support Reps/Minutes 3x10 reps Comments cued no hip rotation/knee drift inward; TB at knees helped Gait Training Gait Activity Gait assess/education Description Gait assessment and pt education in restriction of R Iliopsoas mobility Surface Firm Neuro Re-Education Treatment Balance Activities SLS knee flex Details R SLS knee flex Surface Level/firm Equipment Chair for UE support Reps/Duration 6' single leg balance Details R SLS Surface firm Reps/Duration 4 x 30 seconds each PT-OP-R Modalities Start: 12/29/21 19:43 Freq: Status: Active Protocol: Document 03/23/22 12:17 NBM (Rec: 04/08/22 19:42 NBM [id number]) Hot Pack/Cold Pack Treatment Cold Pack Location R hamstrings Patient Position Supine Treatment Duration (minutes) 10 Patient Tolerance Good Comments lumbar cold pack to R HS in supine w/ strap and pillow support PT-OP-T Assessment and Plan Start: 12/29/21 19:43 Freq: Status: Active Protocol: Document 04/13/22 09:48 LRN (Rec: 04/13/22 10:32 LRN [id number]) Physical Therapy Assessment Goals Five Impairment Decreased Balance Impairment SLS 11 secs right, 60 secs left. (Arms crossed over chest, lift foot to opposite ankle - not touching). Short Term Goal (STG) RLE SLS 30 secs 04/02/22: 11 secs. 04/13/22: 60+ secs STG Duration 04/26/22 (04/13/22: MET GOAL) Hand Cigar Making Supervisor Goal (LTG) R LE SLS 60 secs 04/13/22: 60+ secs LTG Duration 05/14/22 (04/13/22: MET GOAL) Four Impairment R Hamstring weakness Impairment Protocol: PROM of knee flexion only (strength 0/5). Short Term Goal (STG) Phase I: PROM R knee, no hip flexion during knee extension. Phase II: Pt able to tolerate beginning hamstring strengthening (avoiding lengthening of hamstring position (hip flex w/knee ext) ). Pt able to perform standing hip ext (knee straight), and robe/conc strengthening of hamstrings on HEP per protocol safely for pt to feel safe in standing. (02/05/22: Pt tolerates PROM of R knee with no hip flexion - no pain or discomfort). 02/09/22: Pt tolerates PROM of R knee with no hip flexion w/ out pain or discomfort 02/20/22: phase II, added mini lunge and squat at rail knee flexion ROM >60 deg. STG Duration 03/29/22 (04/02/22: MET GOAL) Hand Cigar Making Supervisor Goal (LTG) Pt able to strengthen R hamstring in a lengthened hamstring position (per protocol) s/p wks 12-16 and will be able to balance standing with safety of hamstring tendon secure. 02/20/22: Education on Phase III not until 03/17/22. (04/02/22: SLS is 11 sec right , 1 minute left). 04/13/22: R SLS is 60+ secs LTG Duration 04/26/22 (04/13/22: MET GOAL ) Three Impairment Decreased Standing due to limited WBing in RLE Impairment Protocol limits standing to NWBing wks 0-2, TTWBing 2-6 wks. Short Term Goal (STG) Phase I: Pt will be able to walk with crutches and TTWBing through s/p wks 1-6. (01/23/22: Pt ambs with TTWBing and crutches) (02/02/22: End of week 6, pt ambs with TTWBing and crutches ). 02/09/22: End of week 7, pt ambs with TTWBing and crutches. STG Duration 02/15/22 (02/02/22: MET GOAL) Pen[facility]iary Goal (LTG) Per protocol: Phase II (wks 5 -12) Normal gait, Functional mvmts w/o unloading the RLE while demonstrating good control. SLS greater than 15 secs. Normal 5/5 R hamstring strength w/knee in 90 deg's flexion at least 4/5. Pt will be able to safely stand. (02/22/22: Pt ambulates without AD, wide gait deviations with gait). (04/02/22: Pt reports his gait is normal for him - met goal. R knee Hamstring strength is 4+/5 - met goal. Pt is able to safely stand and without assistive devices - met goal. Pt still unloading some weight off RLE with functional activities; therefore lacking control. RLE SLS is 11 secs) . 04/13/22: R SLS is 60+ secs. R Hamstring strength is 4+/5. Gait. LTG Duration 04/26/22 (04/02/22: Partially met goal) Two Impairment Decreased R knee PROM/AROM Impairment s/p wks 0-6: No active knee ROM Passive R knee flexion limited by brace to 30 deg's flexion. Per protocol: No active R knee ext with flexion of R hip. Short Term Goal (STG) Improve R knee PROM (without hip flex) per rehab protocol. (02/05/22: Passive R Knee ext without hip flexion is 0 deg's ) 02/09/22: Passive R Knee ext w/ out hip flexion is 0 deg 02/16/22: AROM R knee flex 105 deg. (04/02/22: Prone Active R knee flexion is 90 deg's) STG Duration 02/15/22 (04/02/22: MET GOAL) Penitentiary Goal (LTG) Phase II for R knee: R knee 0 -30 deg's. (04/02/22: R knee AROM in supine is 0-130 deg's) LTG Duration 04/26/22 (04/02/22: MET GOAL) One Impairment Lacks Self care Impairment Pt under adherence to protocol Short Term Goal (STG) Pt has good understanding phase I-II of self snf program per rehab protocol. STG Duration 03/29/22 (01/23/21: MET GOAL) Hand Cigar Making Supervisor Goal (LTG) Pt has good understanding and is independent in a phase III self snf care program per rehab protocol. 02/20/22: education to adhere to not performing phase III activities until 03/17/22 then progress slowly for healing. LTG Duration 05/14/22 (04/02/22: Progressing) Assessment Summary Assessment Pt is 3 days short of 16 wks post op (4 wks into Phase III of protocol). Pt gait is not yet normal. He appears to have tightness of his R Ilipsoas causing asymmetry of hip rotation and extension with gait. R hamstring strength is not yet 5/5 in shortened state, he has not yet been assessed in a lengthened state. Pt is safe to stand and has good single leg balance. Strengthening of R hamstrings has not yet been started in a lengthened position (except with cycling in upright position); therefore further strengthening is needed. Pt is able to perform <60 deg's squats w/o difficulty. Physical Therapy Plan Frequency and Duration Frequency of Treatment 2x/Week Duration of treatment (weeks) 6 Plan of Care Start Date 04/02/22 Plan of Care End Date 05/18/22 Next Visit Focus/Plan Next Note Type Progress Note Next Visit Plan PN due to pt to see MD on . Achieve Strength LTG # 3 of phase II, Phase III: progress R hamstring strengthening in a lengthened hamstring positions, begin to incorporate ECC strengthening with single leg fwd leans, single leg bridge lowering, and assisted wgt training curls. HIP/CORE STRENGTH ( hip AB, ext strengthening), Cardio: Bike, elliptical. POC: Follow R Hamstring repair per protocol of Dr. Kolby Locke (see notes section in documentation system). Phase III: impact control ex's beginning 2 foot to 2 foot, progressing from1 ft to the other and then 1 foot to same foot. Phase III precautions: No pain during strength training, & post-activity soreness should resolve w/in 24 hrs. Assess phase II goals: good control of mvmt including step up/down, partial lunge (<60 deg's knee flex), scar mobility. Pt in phase III of protocol ( usually 3 months after surgery ). Add double and single leg balance & gait training.
--- NOTE | 2022-04-16 15:57 | PT.OTN ---
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 Post-activity soreness should resolve within 24 hours. PRECAUTIONS PHASE II: Avoid dynamic stretching, Avoid loading the hip at deep flexion angles, No impact or running. PT-OP-B Current Condition Start: 12/29/21 19:43 Freq: Status: Active Protocol: Document 01/04/22 13:01 LRN (Rec: 01/04/22 18:15 LRN [id number]) Current Condition History of Current Condition Onset Date 12/25/21 Current Complaints Impossible to get comfortable, not quite stable w/crutches. 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 Pt 10 days post op. Pt fall 09/05/21. Was carrying a heavy bin and slipped going up a step and both feet slipped off the step causing a lot of pain in the posterior thigh. Caused a lot of bruinsing and pain for 2 weeks after the fall. Kept walking for 6 weeks with his [place] and it didn't feel strong or stable; therefore sought further medical assessment. Was referred to [place] for repair of tore R hamstring tendons off ischial tuberosity. 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 Prior Treatments and Tests Taking intermittently morphine /oxicodone, Tylenol, ASA for post-op blood thinning, Meloxicam as anti-inflammatory and Methylcarbonal (ms relaxor). Future Testing and Treatments Planned Next MD visit 01/09/22. Developmental History Developmental History Used crutches with knee replacement in 2013. Per pt, RLE PMH: meniscus tear - ACL in 1987, Meniscectomy in , Partial TKA 2008, TKA 2013. R Bunionectomy, R ankle tendon repair, 2 shoulder surgeries. Treatment Goals Patient/Caregiver Goals Pt goal is: Safely get to point to safely stand. Safely get through stage of healing to do strengthening at home of hamstrings. Balance standing with safety of hamstring tendon secure. Prior Functional Status Baseline Function- ADL's Needs Assist Baseline Function- Mobility Needs Assist Baseline Function- Gait Normal gait, no assistive device. 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 Baseline Function- Recreation/Hobbies 10 mile Hikes, coud drive 6 miles, general stiffness after driving long distances. Current Functional Impairments (Reported) Functional Limitations- ADL's Sitting tolerance - 1 minute before having to shift and move. Functional Limitations- Mobility/Gait Gait with crutches, NWBind RLE , wearing knee brace locked at 45 deg's flex. Functional Limitations- Work/School Retired. Functional Limitations- Recreation/ Not able to participate Hobbies Functional Limitations- Other Increased urination at nighttime (5 times per night). Personal Factors Other Personal Factors That May Effect Protocol limiting R Hip/knee Therapy/Recovery mobility & strengthening due to proper healing, R knee brace locked at 50 deg's flex for wks 0-6. Uncontrolled HBP PT-OP-C Subjective Start: 12/29/21 19:43 Freq: Status: Active Protocol: Document 04/16/22 14:34 NBM (Rec: 04/16/22 15:43 NBM [id number]) OP-PT Subjective Patient Comments Patient Comments Pt has next MD appt 04/20/22. Pt reports he feels out of shape. When he goes uphill he needs to stop to catch his breath. He states he bought a stool for stool scoots but it' s too easy on his floors. PT-OP-D Balance Start: 12/29/21 19:43 Freq: Status: Active Protocol: Document 04/13/22 09:48 LRN (Rec: 04/13/22 10:32 LRN [id number]) Balance Tests Single Limb Standing Single Limb- Right 46 secs arms by sides, 60+ with arms acros chest. PT-OP-G Mobility & Gait Start: 12/29/21 19:43 Freq: Status: Active Protocol: Document 01/04/22 13:01 LRN (Rec: 01/04/22 18:21 LRN [id number]) OP Gait Assessment Gait Gait Assistance Required: Standby Assistance Distance (Feet) 100 Able to Maintain Weight Bearing Status Yes During Gait Assistive Devices Assistive Device Axillary Crutches Factors Limiting Gait Function Factors Limiting Gait Function Decreased Activity Tolerance, Incoordination,Poor Safety Awareness Comments Gait Comments Pt at time not very steady with gait but was able to self correct. PT-OP-J Posture/Palpation/Skin Start: 12/29/21 19:43 Freq: Status: Active Protocol: Document 02/05/22 13:52 LRN (Rec: 02/05/22 17:13 LRN [id number]) Skin Assessment Other Assessments Skin Assessment Comments Discoloration in the posteromedial and posterolateral aspect of the R knee/thigh from knee to distal 1/3 of thigh. No pain on palpation. PT-OP-K Range of Motion Start: 12/29/21 19:43 Freq: Status: Active Protocol: Document 04/02/22 13:52 LRN (Rec: 04/02/22 15:15 LRN [id number]) Knee Goniometric Range of Motion Knee Right Knee ROM WFL Yes Patient Position Supine Flexion Active (degrees) 130 Extension Active (degrees) 0 Left Knee ROM WFL Yes Patient Position Sitting Comments WNL PT-OP-M Strength Start: 12/29/21 19:43 Freq: Status: Active Protocol: Document 04/13/22 09:48 LRN (Rec: 04/13/22 10:32 LRN [id number]) Knee Strength Knee Manual Muscle Testing Right Flexion (S2) 4 Good Comments Lateral hamstrring strength is 4/5 Medial hamstring strength is 4 +/5 PT-OP-Q Treatments Start: 12/29/21 19:43 Freq: Status: Active Protocol: Document 04/16/22 14:34 NBM (Rec: 04/16/22 15:43 NBM [id number]) Cardio Equipment Bicycle (Upright) Duration (Minutes) 10 Resistance 11 Seat Position 11 Other cues for mimimal lat lean Therapeutic Exercises Supine Exercises Jayden Stretch Supine Exercise Name added to HEP Side bilateral Reps/Minutes 45 sec ea Comments good feedback response Sitting Exercises stool scoot Sitting Exercise Name fwd/bwd, laps Comments vc for heels apart, heel/toe, excessive lat rocking Standing Exercises step down Standing Exercise Name fwd/bwd/lat 8, fwd/bwd 16 Side right Equipment Used 8 step, 16 step Comments cued neutral hip rotation; fwd translation R knee HS curls Standing Exercise Name Standing knee flex: Robe and conc/Ecc of med/lat HS Side right Reps/Minutes 10x 10 robe, 2 x 20 conc/ecc step ups Standing Exercise Name fwd/bwd/lat 8, fwd/bwd 16 Equipment Used 8 step, 16 Reps/Minutes x10 ea Comments pt states doing ~16 step up/ down at home forward T Standing Exercise Name forward T Side bilateral Equipment Used poles Comments cues for excessive hip rotation, improved self- correction Hip Extension Standing Exercise Name Hip extension Side bilateral Resistance Lv 2 around ankles. Reps/Minutes 3x10 ea Comments cues for no trunk lean sidesteps with theraband Side bilateral Resistance Green Reps/Minutes 3 x 12ft ea Comments pt in mini squat position modified Lunges Side bilateral Resistance AROM Equipment Used no UE support Reps/Minutes x10 each LE Comments <60 deg knee flexion, painfree , cued space between BLE mini squat Standing Exercise Name <60 deg knee flexion - added to HEP Resistance AROM w/ no UE support Reps/Minutes 2x10 reps Comments cued no hip rotation/knee drift inward Manual Therapy Treatment Soft Tissue Mobilization R hip flexor Body Location R iliopsoas Mobilization Type Myofascial Release,Sustained Pressure Intensity/Depth Moderate Body Position Supine Comments manual release Neuro Re-Education Treatment Balance Activities SLS knee flex Details R SLS knee flex> mini squat Surface Level/firm Equipment EARLY CHILDHOOD DIRECTOR prn Comments max cues for maintaining knees behind toes/hip hinge. Self-Care/Home Management Treatment Education Patient Education Home Exercise Program Other Education Added to HEP: Squats <60 deg knee flexion w/ chair tap for improved hip hinge and knee alignment; jayden DIMAS declined. PT-OP-R Modalities Start: 12/29/21 19:43 Freq: Status: Active Protocol: Document 03/23/22 12:17 NBM (Rec: 04/08/22 19:42 NBM [id number]) Hot Pack/Cold Pack Treatment Cold Pack Location R hamstrings Patient Position Supine Treatment Duration (minutes) 10 Patient Tolerance Good Comments lumbar cold pack to R HS in supine w/ strap and pillow support PT-OP-T Assessment and Plan Start: 12/29/21 19:43 Freq: Status: Active Protocol: Document 04/16/22 14:34 [facility] (Rec: 04/16/22 15:43 [facility] [id number]) Physical Therapy Assessment Goals Four Impairment R Hamstring weakness Impairment Protocol: PROM of knee flexion only (strength 0/5). Short Term Goal (STG) Phase I: PROM R knee, no hip flexion during knee extension. Phase II: Pt able to tolerate beginning hamstring strengthening (avoiding lengthening of hamstring position (hip flex w/knee ext) ). Pt able to perform standing hip ext (knee straight), and robe/conc strengthening of hamstrings on HEP per protocol safely for pt to feel safe in standing. (02/05/22: Pt tolerates PROM of R knee with no hip flexion - no pain or discomfort). 02/09/22: Pt tolerates PROM of R knee with no hip flexion w/ out pain or discomfort 02/20/22: phase II, added mini lunge and squat at rail knee flexion ROM >60 deg. STG Duration 03/29/22 (04/02/22: MET GOAL) Air Shovel Operator Goal (LTG) Pt able to strengthen R hamstring in a lengthened hamstring position (per protocol) s/p wks 12-16 and will be able to balance standing with safety of hamstring tendon secure. 02/20/22: Education on Phase III not until 03/17/22. (04/02/22: SLS is 11 sec right , 1 minute left). 04/13/22: R SLS is 60+ secs LTG Duration 04/26/22 (04/13/22: MET GOAL ) Three Impairment Decreased Standing due to limited WBing in RLE Impairment Protocol limits standing to NWBing wks 0-2, TTWBing 2-6 wks. Short Term Goal (STG) Phase I: Pt will be able to walk with crutches and TTWBing through s/p wks 1-6. (01/23/22: Pt ambs with TTWBing and crutches) (02/02/22: End of week 6, pt ambs with TTWBing and crutches ). 02/09/22: End of week 7, pt ambs with TTWBing and crutches. STG Duration 02/15/22 (02/02/22: MET GOAL) Air Shovel Operator Goal (LTG) Per protocol: Phase II (wks 5 -12) Normal gait, Functional mvmts w/o unloading the RLE while demonstrating good control. SLS greater than 15 secs. Normal 5/5 R hamstring strength w/knee in 90 deg's flexion at least 4/5. Pt will be able to safely stand. (02/22/22: Pt ambulates without AD, wide gait deviations with gait). (04/02/22: Pt reports his gait is normal for him - met goal. R knee Hamstring strength is 4+/5 - met goal. Pt is able to safely stand and without assistive devices - met goal. Pt still unloading some weight off RLE with functional activities; therefore lacking control. RLE SLS is 11 secs) . 04/13/22: R SLS is 60+ secs. R Hamstring strength is 4+/5. Gait. LTG Duration 04/26/22 (04/02/22: Partially met goal) One Impairment Lacks Self care Impairment Pt under adherence to protocol Short Term Goal (STG) Pt has good understanding phase I-II of self penitentiary program per rehab protocol. STG Duration 03/29/22 (01/23/21: MET GOAL) [facility] Goal (LTG) Pt has good understanding and is independent in a phase III self penitentiary care program per rehab protocol. 02/20/22: education to adhere to not performing phase III activities until 03/17/22 then progress slowly for healing. LTG Duration 05/14/22 (04/02/22: Progressing) Assessment Summary Assessment Pt requires consistent initial cues for excessive hip rotation with LE open-and closed-chain exercise but demonstrates improved self- awareness with repetition. Pt shows improved self-awarenes w / neutral foot position and controlled eccentric movement with joe resisted sidesteps. R iliopsoas palpable tightness improves w/ manual release. Pt reports he was initially unaware of R hip tightness but notes decreased hip tightness end of session. Jayden julian added to HEP - HO declined. Physical Therapy Plan Frequency and Duration Frequency of Treatment 2x/Week Duration of treatment (weeks) 6 Plan of Care Start Date 04/02/22 Plan of Care End Date 05/18/22 Therapeutic Interventions Therapeutic Interventions Balance Training,Gait Training ,Home Exercise Program,Manual Therapy,Neuromuscular Re- education,Patient/Caregiver Education,Self-Care/Home Management,Soft Tissue Mobilization,Therapeutic Exercises Modalities Cold Pack/Ice Massage Next Visit Focus/Plan Next Note Type Treatment Note Next Visit Plan PN due to pt to see MD on . Achieve Strength LTG # 3 of phase II, Phase III: progress R hamstring strengthening in a lengthened hamstring positions, review ECC strengthening with single leg fwd leans, incorporate single leg bridge lowering, and assisted wgt training curls. HIP/CORE STRENGTH ( hip AB, ext strengthening), Cardio: Bike, elliptical. POC: Follow R Hamstring repair per protocol of Dr. Kolby Locke (see notes section in documentation system). Phase III: impact control ex's beginning 2 foot to 2 foot, progressing from1 ft to the other and then 1 foot to same foot. Phase III precautions: No pain during strength training, & post-activity soreness should resolve w/in 24 hrs. Assess phase II goals: good control of mvmt including step up/down, partial lunge (<60 deg's knee flex), scar mobility. Pt in phase III of protocol ( usually 3 months after surgery ). Add double and single leg balance & gait training.
--- NOTE | 2022-04-19 17:08 | PT.OTN ---
Current Diagnoses Strain of muscle, fascia and tendon of the posterior muscle group at thigh level, right thigh, initial encounter (04/19/22) Physical Therapy Treatment Note PT-OP-A Visit Information Start: 12/29/21 19:43 Freq: Status: Active Protocol: Document 04/19/22 13:47 LRN (Rec: 04/19/22 17:06 LRN [id number]) Out-Patient Physical Therapy Visit Information Visit Information Visit Type Progress Note Visit Start Time 13:47 Visit Stop Time 14:36 Total Visit Minutes 49 Visit Number 27 Evaluation Information Evaluation Date 01/04/22 Precautions Precautions PRECAUTIONS PHASE III: No pain during strength training. Post-activity soreness should resolve within 24 hours. PRECAUTIONS PHASE II: Avoid dynamic stretching, Avoid loading the hip at deep flexion angles, No impact or running. PT-OP-B Current Condition Start: 12/29/21 19:43 Freq: Status: Active Protocol: Document 01/04/22 13:01 LRN (Rec: 01/04/22 18:15 LRN [id number]) Current Condition History of Current Condition Onset Date 12/25/21 Current Complaints Impossible to get comfortable, not quite stable w/crutches. 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 Pt 10 days post op. Pt fall 09/05/21. Was carrying a heavy bin and slipped going up a step and both feet slipped off the step causing a lot of pain in the posterior thigh. Caused a lot of bruinsing and pain for 2 weeks after the fall. Kept walking for 6 weeks with his [place] and it didn't feel strong or stable; therefore sought further medical assessment. Was referred to [facility] for repair of tore R hamstring tendons off ischial tuberosity. 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 Prior Treatments and Tests Taking intermittently morphine /oxicodone, Tylenol, ASA for post-op blood thinning, Meloxicam as anti-inflammatory and Methylcarbonal (ms relaxor). Future Testing and Treatments Planned Next MD visit 01/09/22. Developmental History Developmental History Used crutches with knee replacement in 2013. Per pt, RLE PMH: meniscus tear - ACL in 1987, Meniscectomy in , Partial TKA 2008, TKA 2013. R Bunionectomy, R ankle tendon repair, 2 shoulder surgeries. Treatment Goals Patient/Caregiver Goals Pt goal is: Safely get to point to safely stand. Safely get through stage of healing to do strengthening at home of hamstrings. Balance standing with safety of hamstring tendon secure. Prior Functional Status Baseline Function- ADL's Needs Assist Baseline Function- Mobility Needs Assist Baseline Function- Gait Normal gait, no assistive device. 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 Baseline Function- Recreation/Hobbies 10 mile Hikes, coud drive 6 miles, general stiffness after driving long distances. Current Functional Impairments (Reported) Functional Limitations- ADL's Sitting tolerance - 1 minute before having to shift and move. Functional Limitations- Mobility/Gait Gait with crutches, NWBind RLE , wearing knee brace locked at 45 deg's flex. Functional Limitations- Work/School Retired. Functional Limitations- Recreation/ Not able to participate Hobbies Functional Limitations- Other Increased urination at nighttime (5 times per night). Personal Factors Other Personal Factors That May Effect Protocol limiting R Hip/knee Therapy/Recovery mobility & strengthening due to proper healing, R knee brace locked at 50 deg's flex for wks 0-6. Uncontrolled HBP PT-OP-C Subjective Start: 12/29/21 19:43 Freq: Status: Active Protocol: Document 04/19/22 13:47 LRN (Rec: 04/19/22 17:06 LRN [id number]) OP-PT Subjective Patient Comments Patient Comments R hamstring is sore, used a higher step for step up exercises. PT-OP-D Balance Start: 12/29/21 19:43 Freq: Status: Active Protocol: Document 04/19/22 13:47 LRN (Rec: 04/19/22 17:06 LRN [id number]) Balance Tests Single Limb Standing Single Limb- Right 30 secs Single Limb- Left 1 minute PT-OP-G Mobility & Gait Start: 12/29/21 19:43 Freq: Status: Active Protocol: Document 01/04/22 13:01 LRN (Rec: 01/04/22 18:21 LRN [id number]) OP Gait Assessment Gait Gait Assistance Required: Standby Assistance Distance (Feet) 100 Able to Maintain Weight Bearing Status Yes During Gait Assistive Devices Assistive Device Axillary Crutches Factors Limiting Gait Function Factors Limiting Gait Function Decreased Activity Tolerance, Incoordination,Poor Safety Awareness Comments Gait Comments Pt at time not very steady with gait but was able to self correct. PT-OP-J Posture/Palpation/Skin Start: 12/29/21 19:43 Freq: Status: Active Protocol: Document 02/05/22 13:52 LRN (Rec: 02/05/22 17:13 LRN [id number]) Skin Assessment Other Assessments Skin Assessment Comments Discoloration in the posteromedial and posterolateral aspect of the R knee/thigh from knee to distal 1/3 of thigh. No pain on palpation. PT-OP-K Range of Motion Start: 12/29/21 19:43 Freq: Status: Active Protocol: Document 04/02/22 13:52 LRN (Rec: 04/02/22 15:15 LRN [id number]) Knee Goniometric Range of Motion Knee Right Knee ROM WFL Yes Patient Position Supine Flexion Active (degrees) 130 Extension Active (degrees) 0 Left Knee ROM WFL Yes Patient Position Sitting Comments WNL PT-OP-M Strength Start: 12/29/21 19:43 Freq: Status: Active Protocol: Document 04/19/22 13:47 LRN (Rec: 04/19/22 17:06 LRN [id number]) Knee Strength Knee Manual Muscle Testing Right Flexion (S2) 4 Good Extension (L3) 5 Normal Comments Lateral hamstring strength is 4/5 Medial hamstring strength is 4 +/5 Left Flexion (S2) 5 Normal Extension (L3) 5 Normal PT-OP-Q Treatments Start: 12/29/21 19:43 Freq: Status: Active Protocol: Document 04/19/22 13:47 LRN (Rec: 04/19/22 17:06 LRN [id number]) Cardio Equipment Bicycle (Upright) Duration (Minutes) 8 Resistance 11 Seat Position 11 Other cues for mimimal lat lean Therapeutic Exercises Standing Exercises Lifting Standing Exercise Name Lifting training with equal WBing in LE's Side bilateral Knee flex Standing Exercise Name Knee flex - foot pointing in/ foot pointing out Side right Equipment Used 2# Reps/Minutes 15x each modified Lunges Standing Exercise Name Lunge off 3rd step from bottom Side right Resistance AROM Equipment Used no UE support Reps/Minutes x10 Comments <60 deg knee flexion, painfree , cued space between BLE Other Exercises 1/2 knee Iliopsoas stretch Other Exercise Name 1/2 kneel Iliopsoas Side right Reps/Minutes 13' Gait Training Gait Activity Gait for R LE corrections Description Gait with R hip ext, equal pelvic rot Treatment Focus R hip ext, equal pelvic rot Comments Pt able to move with equal foot lengths and good pelvic rot with fingers on ASIS. Neuro Re-Education Treatment Balance Activities single leg balance Details SLS R LE Surface Firm Reps/Duration 5' Comments 30 secs, 45 secs. LLE SLS is PT-OP-R Modalities Start: 12/29/21 19:43 Freq: Status: Active Protocol: Document 03/23/22 12:17 NBM (Rec: 04/08/22 19:42 NBM [id number]) Hot Pack/Cold Pack Treatment Cold Pack Location R hamstrings Patient Position Supine Treatment Duration (minutes) 10 Patient Tolerance Good Comments lumbar cold pack to R HS in supine w/ strap and pillow support PT-OP-T Assessment and Plan Start: 12/29/21 19:43 Freq: Status: Active Protocol: Document 04/19/22 13:47 LRN (Rec: 04/19/22 17:06 LRN [id number]) Physical Therapy Assessment Rehab Potential Rehabilitation Potential Good Evaluation Complexity Number of Personal Factors/Comorbidities 1-2 Number of Body Systems Impaired 4 or More Clinical Presentation at Evaluation Evolving Impairments Impairments Activity Tolerance,Balance, Gait,Pain,Strength Other Impairments WBing and movement restrictions/precautions per MD protocol. Goals Five Impairment Decreased Balance Impairment SLS 11 secs right, 60 secs left. (Arms crossed over chest, lift foot to opposite ankle - not touching). Short Term Goal (STG) RLE SLS 30 secs 04/02/22: 11 secs. 04/13/22: 60+ secs STG Duration 04/26/22 (04/13/22: MET GOAL) Toll Gate Tender Goal (LTG) R LE SLS 60 secs 04/13/22: 60+ secs LTG Duration 05/14/22 (04/13/22: MET GOAL) Four Impairment R Hamstring weakness Impairment Protocol: PROM of knee flexion only (strength 0/5). Short Term Goal (STG) Phase I: PROM R knee, no hip flexion during knee extension. Phase II: Pt able to tolerate beginning hamstring strengthening (avoiding lengthening of hamstring position (hip flex w/knee ext) ). Pt able to perform standing hip ext (knee straight), and preeti/conc strengthening of hamstrings on HEP per protocol safely for pt to feel safe in standing. (02/05/22: Pt tolerates PROM of R knee with no hip flexion - no pain or discomfort). 02/09/22: Pt tolerates PROM of R knee with no hip flexion w/ out pain or discomfort 02/20/22: phase II, added mini lunge and squat at rail knee flexion ROM >60 deg. STG Duration 03/29/22 (04/02/22: MET GOAL) Toll Gate Tender Goal (LTG) Pt able to strengthen R hamstring in a lengthened hamstring position (per protocol) s/p wks 12-16 and will be able to balance standing with safety of hamstring tendon secure. 02/20/22: Education on Phase III not until 03/17/22. (04/02/22: SLS is 11 sec right , 1 minute left). 04/13/22: R SLS is 60+ secs LTG Duration 04/26/22 (04/13/22: MET GOAL ) Three Impairment Decreased Standing due to limited WBing in RLE Impairment Protocol limits standing to NWBing wks 0-2, TTWBing 2-6 wks. Short Term Goal (STG) Phase I: Pt will be able to walk with crutches and TTWBing through s/p wks 1-6. (01/23/22: Pt ambs with TTWBing and crutches) (02/02/22: End of week 6, pt ambs with TTWBing and crutches ). 02/09/22: End of week 7, pt ambs with TTWBing and crutches. STG Duration 02/15/22 (02/02/22: MET GOAL) [facility] Goal (LTG) Per protocol: Phase II (wks 5 -12) Normal gait, Functional mvmts w/o unloading the RLE while demonstrating good control. SLS greater than 15 secs. Normal 5/5 R hamstring strength w/knee in 90 deg's flexion at least 4/5. Pt will be able to safely stand. (02/22/22: Pt ambulates without AD, wide gait deviations with gait). (04/02/22: Pt reports his gait is normal for him - met goal. R knee Hamstring strength is 4+/5 - met goal. Pt is able to safely stand and without assistive devices - met goal. Pt still unloading some weight off RLE with functional activities; therefore lacking control. RLE SLS is 11 secs) . (04/13/22: R SLS is 60+ secs. R Hamstring strength is 4+/5) (04/19/22: Shortened R step length & decreased pelvic rot presenting as antalgic gait - pt feels it is his normal, but was improved with training. Pt WBing R>L with lifting wgt from floor. SLS & R knee strength and standing safely goals met. LTG Duration 04/26/22 (04/02/22: Partially met goal) Two Impairment Decreased R knee PROM/AROM Impairment s/p wks 0-6: No active knee ROM Passive R knee flexion limited by brace to 30 deg's flexion. Per protocol: No active R knee ext with flexion of R hip. Short Term Goal (STG) Improve R knee PROM (without hip flex) per rehab protocol. (02/05/22: Passive R Knee ext without hip flexion is 0 deg's ) 02/09/22: Passive R Knee ext w/ out hip flexion is 0 deg 02/16/22: AROM R knee flex 105 deg. (04/02/22: Prone Active R knee flexion is 90 deg's) STG Duration 02/15/22 (04/02/22: MET GOAL) Toll Gate Tender Goal (LTG) Phase II for R knee: R knee 0 -30 deg's. (04/02/22: R knee AROM in supine is 0-130 deg's) LTG Duration 04/26/22 (04/02/22: MET GOAL) One Impairment Lacks Self care Impairment Pt under adherence to protocol Short Term Goal (STG) Pt has good understanding phase I-II of self residential program per rehab protocol. STG Duration 03/29/22 (01/23/21: MET GOAL) Toll Gate Tender Goal (LTG) Pt has good understanding and is independent in a phase III self residential care program per rehab protocol. 02/20/22: education to adhere to not performing phase III activities until 03/17/22 then progress slowly for healing. LTG Duration 05/14/22 (04/02/22: Progressing) Assessment Summary Assessment Pt is 16 wks and 3 days post op (4 wks into phase II protocol). The pt appears to be somewhat inconsistent with his home program and is advancing himself with exercises that is creating soreness in his hamstrings that doesn't resolve in 24 hours. The pt has improved in his hamstring strength as we have progressed him slowly to strnegthening in a lengthened hamstring positions due to the aggressive nature of what he does on his own at home. He is ready to progress eccentric strengthening and further his strength in a hamstring lengthened position (sitting resisted knee flex). His single leg stance is a challenge and his ability to stand for up to 30 secs is after several trials. He demonstrates with gait a mild limp due to decreased R hip ext mobility and decreased pelvic rotation. He was able to improve his gait mechanics after training and with much concentration on the patient's part. I would recommend 1-3 weeks of therapy for gait training, balance training & RLE strengthening to improve his mechanics and stability with gait. The pt is anxious to finish his rehab program; therefore we will continue as you recommend. Physical Therapy Plan Frequency and Duration Frequency of Treatment 2x/Week Duration of treatment (weeks) 4 Plan of Care Start Date 04/19/22 Plan of Care End Date 05/18/22 Therapeutic Interventions Therapeutic Interventions Balance Training,Gait Training ,Home Exercise Program,Self- Care/Home Management, Therapeutic Exercises Modalities Cold Pack/Ice Massage Next Visit Focus/Plan Next Note Type Treatment Note Next Visit Plan Review w/pt Phase III precaution. Achieve LTG #3 (Normal gait, Functional mvmts w/o unloading the RLE while demonstrating good control), Phase III: progress R hamstring strengthening in a lengthened hamstring positions, review ECC strengthening with single leg fwd leans, incorporate single leg bridge lowering, and assisted wgt training curls. Cardio: Bike, elliptical. Phase III: impact control ex's beginning 2 foot to 2 foot, progressing from1 ft to the other and then 1 foot to same foot. POC: Follow R Hamstring repair per protocol of Dr. Kolby Locke (see notes section in documentation system). Phase III precautions: No pain during strength training, & post-activity soreness should resolve w/in 24 hrs. Assess phase II goals: good control of mvmt including step up/down, partial lunge (<60 deg's knee flex). Pt in phase III of protocol ( usually 3 months after surgery ). Add double and single leg balance & gait training.
--- NOTE | 2022-04-30 15:50 | PT.OTN ---
Current Diagnoses Strain of muscle, fascia and tendon of the posterior muscle group at thigh level, right thigh, initial encounter (04/30/22) Physical Therapy Treatment Note PT-OP-A Visit Information Start: 12/29/21 19:43 Freq: Status: Active Protocol: Document 04/30/22 13:50 NBM (Rec: 04/30/22 14:33 NBM [id number]) Out-Patient Physical Therapy Visit Information Visit Information Visit Type Treatment Note Visit Start Time 13:55 Visit Stop Time 14:30 Total Visit Minutes 35 Visit Number 28 Number of [facility] Visits 1 Evaluation Information Evaluation Date 01/04/22 Precautions Precautions PRECAUTIONS PHASE III: No pain during strength training. Post-activity soreness should resolve within 24 hours. PRECAUTIONS PHASE II: Avoid dynamic stretching, Avoid loading the hip at deep flexion angles, No impact or running. PT-OP-B Current Condition Start: 12/29/21 19:43 Freq: Status: Active Protocol: Document 01/04/22 13:01 LRN (Rec: 01/04/22 18:15 LRN [id number]) Current Condition History of Current Condition Onset Date 12/25/21 Current Complaints Impossible to get comfortable, not quite stable w/crutches. 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 Pt 10 days post op. Pt fall 09/05/21. Was carrying a heavy bin and slipped going up a step and both feet slipped off the step causing a lot of pain in the posterior thigh. Caused a lot of bruinsing and pain for 2 weeks after the fall. Kept walking for 6 weeks with his [place] and it didn't feel strong or stable; therefore sought further medical assessment. Was referred to [facility] for repair of tore R hamstring tendons off ischial tuberosity. 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 Prior Treatments and Tests Taking intermittently morphine /oxicodone, Tylenol, ASA for post-op blood thinning, Meloxicam as anti-inflammatory and Methylcarbonal (ms relaxor). Future Testing and Treatments Planned Next MD visit 01/09/22. Developmental History Developmental History Used crutches with knee replacement in 2013. Per pt, RLE PMH: meniscus tear - ACL in 1987, Meniscectomy in , Partial TKA 2008, TKA 2013. R Bunionectomy, R ankle tendon repair, 2 shoulder surgeries. Treatment Goals Patient/Caregiver Goals Pt goal is: Safely get to point to safely stand. Safely get through stage of healing to do strengthening at home of hamstrings. Balance standing with safety of hamstring tendon secure. Prior Functional Status Baseline Function- ADL's Needs Assist Baseline Function- Mobility Needs Assist Baseline Function- Gait Normal gait, no assistive device. 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 Baseline Function- Recreation/Hobbies 10 mile Hikes, coud drive 6 miles, general stiffness after driving long distances. Current Functional Impairments (Reported) Functional Limitations- ADL's Sitting tolerance - 1 minute before having to shift and move. Functional Limitations- Mobility/Gait Gait with crutches, NWBind RLE , wearing knee brace locked at 45 deg's flex. Functional Limitations- Work/School Retired. Functional Limitations- Recreation/ Not able to participate Hobbies Functional Limitations- Other Increased urination at nighttime (5 times per night). Personal Factors Other Personal Factors That May Effect Protocol limiting R Hip/knee Therapy/Recovery mobility & strengthening due to proper healing, R knee brace locked at 50 deg's flex for wks 0-6. Uncontrolled HBP PT-OP-C Subjective Start: 12/29/21 19:43 Freq: Status: Active Protocol: Document 04/30/22 13:50 NBM (Rec: 04/30/22 14:33 NBM [id number]) OP-PT Subjective Patient Comments Patient Comments Pt states his R hamstring feels tight. He used his step box about 17 yesterday at 90 bpm. PT-OP-D Balance Start: 12/29/21 19:43 Freq: Status: Active Protocol: Document 04/19/22 13:47 LRN (Rec: 04/19/22 17:06 LRN [id number]) Balance Tests Single Limb Standing Single Limb- Right 30 secs Single Limb- Left 1 minute PT-OP-G Mobility & Gait Start: 12/29/21 19:43 Freq: Status: Active Protocol: Document 01/04/22 13:01 LRN (Rec: 01/04/22 18:21 LRN [id number]) OP Gait Assessment Gait Gait Assistance Required: Standby Assistance Distance (Feet) 100 Able to Maintain Weight Bearing Status Yes During Gait Assistive Devices Assistive Device Axillary Crutches Factors Limiting Gait Function Factors Limiting Gait Function Decreased Activity Tolerance, Incoordination,Poor Safety Awareness Comments Gait Comments Pt at time not very steady with gait but was able to self correct. PT-OP-J Posture/Palpation/Skin Start: 12/29/21 19:43 Freq: Status: Active Protocol: Document 02/05/22 13:52 LRN (Rec: 02/05/22 17:13 LRN [id number]) Skin Assessment Other Assessments Skin Assessment Comments Discoloration in the posteromedial and posterolateral aspect of the R knee/thigh from knee to distal 1/3 of thigh. No pain on palpation. PT-OP-K Range of Motion Start: 12/29/21 19:43 Freq: Status: Active Protocol: Document 04/02/22 13:52 LRN (Rec: 04/02/22 15:15 LRN [id number]) Knee Goniometric Range of Motion Knee Right Knee ROM WFL Yes Patient Position Supine Flexion Active (degrees) 130 Extension Active (degrees) 0 Left Knee ROM WFL Yes Patient Position Sitting Comments WNL PT-OP-M Strength Start: 12/29/21 19:43 Freq: Status: Active Protocol: Document 04/19/22 13:47 LRN (Rec: 04/19/22 17:06 LRN [id number]) Knee Strength Knee Manual Muscle Testing Right Flexion (S2) 4 Good Extension (L3) 5 Normal Comments Lateral hamstring strength is 4/5 Medial hamstring strength is 4 +/5 Left Flexion (S2) 5 Normal Extension (L3) 5 Normal PT-OP-Q Treatments Start: 12/29/21 19:43 Freq: Status: Active Protocol: Document 04/30/22 13:50 NBM (Rec: 04/30/22 14:33 NBM [id number]) Cardio Equipment Bicycle (Upright) Duration (Minutes) 10 Resistance 11 Seat Position 11 Therapeutic Exercises Sitting Exercises stool scoot Sitting Exercise Name fwd/bwd, laps Comments vc for heels apart, heel/toe, excessive lat rocking Standing Exercises Knee flex Standing Exercise Name Knee flex - foot pointing in/ foot pointing out Side right Equipment Used 2# Reps/Minutes 15x each step down Standing Exercise Name step up/down 16 - demonstrating personal HEP Side bilateral Equipment Used 16 step Comments cued upright posture w/ glute squeeze at top HS curls Standing Exercise Name Standing knee flex: Robe and conc/Ecc of med/lat HS Side right Reps/Minutes 10x 10 robe, 2 x 20 conc/ecc sidesteps with theraband Side bilateral Resistance lvl 3 tb Reps/Minutes 2 x 12ft ea Comments pt in mini squat position, cues for toes fwd, upright posture modified Lunges Standing Exercise Name Lunge off 3rd step from bottom Side right Resistance AROM Reps/Minutes x5 Comments <60 deg knee flexion, painfree , cued space between BLE Other Exercises hamstring/calf stretch Side bilateral Equipment Used handrail Reps/Minutes x30 ea Comments gentle, cues for hips facing fwd, fingers on ASIS 1/2 knee Iliopsoas stretch Other Exercise Name 1/2 kneel Iliopsoas Side right Reps/Minutes 1' Gait Training Gait Activity Gait for R LE corrections Description Gait with R hip ext, equal pelvic rot Level of Assistance SBA Surface carpet, tile Distance/Duration 2 x 180ft Treatment Focus R hip ext, equal pelvic rot Comments Pt able to move with equal foot lengths and good pelvic rot Self-Care/Home Management Treatment Education Patient Education Joint Protection,Safety Other Education Reviewed w/ pt Phase III precautions: No pain during strength training. Post- activity soreness should resolve within 24 hours - pt able to teach back and states observing precautions. PT-OP-R Modalities Start: 12/29/21 19:43 Freq: Status: Active Protocol: Document 03/23/22 12:17 NBM (Rec: 04/08/22 19:42 [facility] [id number]) Hot Pack/Cold Pack Treatment Cold Pack Location R hamstrings Patient Position Supine Treatment Duration (minutes) 10 Patient Tolerance Good Comments lumbar cold pack to R HS in supine w/ strap and pillow support PT-OP-T Assessment and Plan Start: 12/29/21 19:43 Freq: Status: Active Protocol: Document 04/30/22 13:50 NBM (Rec: 04/30/22 14:33 [facility] [id number]) Physical Therapy Assessment Goals Five Impairment Decreased Balance Impairment SLS 11 secs right, 60 secs left. (Arms crossed over chest, lift foot to opposite ankle - not touching). Short Term Goal (STG) RLE SLS 30 secs 04/02/22: 11 secs. 04/13/22: 60+ secs STG Duration 04/26/22 (04/13/22: MET GOAL) [facility] [employer] [employer] Goal (LTG) R LE SLS 60 secs 04/13/22: 60+ secs LTG Duration 05/14/22 (04/13/22: MET GOAL) Four Impairment R Hamstring weakness Impairment Protocol: PROM of knee flexion only (strength 0/5). Short Term Goal (STG) Phase I: PROM R knee, no hip flexion during knee extension. Phase II: Pt able to tolerate beginning hamstring strengthening (avoiding lengthening of hamstring position (hip flex w/knee ext) ). Pt able to perform standing hip ext (knee straight), and robe/conc strengthening of hamstrings on HEP per protocol safely for pt to feel safe in standing. (02/05/22: Pt tolerates PROM of R knee with no hip flexion - no pain or discomfort). 02/09/22: Pt tolerates PROM of R knee with no hip flexion w/ out pain or discomfort 02/20/22: phase II, added mini lunge and squat at rail knee flexion ROM >60 deg. STG Duration 03/29/22 (04/02/22: MET GOAL) [employer] Goal (LTG) Pt able to strengthen R hamstring in a lengthened hamstring position (per protocol) s/p wks 12-16 and will be able to balance standing with safety of hamstring tendon secure. 02/20/22: Education on Phase III not until 03/17/22. (04/02/22: SLS is 11 sec right , 1 minute left). 04/13/22: R SLS is 60+ secs LTG Duration 04/26/22 (04/13/22: MET GOAL ) Three Impairment Decreased Standing due to limited WBing in RLE Impairment Protocol limits standing to NWBing wks 0-2, TTWBing 2-6 wks. Short Term Goal (STG) Phase I: Pt will be able to walk with crutches and TTWBing through s/p wks 1-6. (01/23/22: Pt ambs with TTWBing and crutches) (02/02/22: End of week 6, pt ambs with TTWBing and crutches ). 02/09/22: End of week 7, pt ambs with TTWBing and crutches. STG Duration 02/15/22 (02/02/22: MET GOAL) Assisted Goal (LTG) Per protocol: Phase II (wks 5 -12) Normal gait, Functional mvmts w/o unloading the RLE while demonstrating good control. SLS greater than 15 secs. Normal 5/5 R hamstring strength w/knee in 90 deg's flexion at least 4/5. Pt will be able to safely stand. (02/22/22: Pt ambulates without AD, wide gait deviations with gait). (04/02/22: Pt reports his gait is normal for him - met goal. R knee Hamstring strength is 4+/5 - met goal. Pt is able to safely stand and without assistive devices - met goal. Pt still unloading some weight off RLE with functional activities; therefore lacking control. RLE SLS is 11 secs) . (04/13/22: R SLS is 60+ secs. R Hamstring strength is 4+/5) (04/19/22: Shortened R step length & decreased pelvic rot presenting as antalgic gait - pt feels it is his normal, but was improved with training. Pt WBing R>L with lifting wgt from floor. SLS & R knee strength and standing safely goals met. LTG Duration 04/26/22 (04/02/22: Partially met goal) Two Impairment Decreased R knee PROM/AROM Impairment s/p wks 0-6: No active knee ROM Passive R knee flexion limited by brace to 30 deg's flexion. Per protocol: No active R knee ext with flexion of R hip. Short Term Goal (STG) Improve R knee PROM (without hip flex) per rehab protocol. (02/05/22: Passive R Knee ext without hip flexion is 0 deg's ) 02/09/22: Passive R Knee ext w/ out hip flexion is 0 deg 02/16/22: AROM R knee flex 105 deg. (04/02/22: Prone Active R knee flexion is 90 deg's) STG Duration 02/15/22 (04/02/22: MET GOAL) [employer] Goal (LTG) Phase II for R knee: R knee 0 -30 deg's. (04/02/22: R knee AROM in supine is 0-130 deg's) LTG Duration 04/26/22 (04/02/22: MET GOAL) One Impairment Lacks Self care Impairment Pt under adherence to protocol Short Term Goal (STG) Pt has good understanding phase I-II of self detention program per rehab protocol. STG Duration 03/29/22 (01/23/21: MET GOAL) [employer] Goal (LTG) Pt has good understanding and is independent in a phase III self detention care program per rehab protocol. 02/20/22: education to adhere to not performing phase III activities until 03/17/22 then progress slowly for healing. LTG Duration 05/14/22 (04/02/22: Progressing) Assessment Summary Assessment Pt would benefit from continued skilled therapeutic intervention to improve gait mechanics due to limp, which improves with cues to concentrate on R hip extension and rotation. Pt continues to need cues for glute engagement and hip rotation R> L. Pt is able to state Phase III precautions. Pt has one more appt booked w/ [facility], and plans to schedule one more visit with Physical Therapist to discuss discharge as he believes he can continue rehab at home. Short session due to pt arriving late. Physical Therapy Plan Frequency and Duration Frequency of Treatment 2x/Week Duration of treatment (weeks) 4 Plan of Care Start Date 04/19/22 Plan of Care End Date 05/18/22 Therapeutic Interventions Therapeutic Interventions Balance Training,Gait Training ,Home Exercise Program,Self- Care/Home Management, Therapeutic Exercises Modalities Cold Pack/Ice Massage Next Visit Focus/Plan Next Note Type Treatment Note Next Visit Plan Review w/pt Phase III precaution. Achieve LTG #3 (Normal gait, Functional mvmts w/o unloading the RLE while demonstrating good control), Phase III: progress R hamstring strengthening in a lengthened hamstring positions, review ECC strengthening with single leg fwd leans, incorporate single leg bridge lowering, and assisted wgt training curls. Cardio: Bike, elliptical. Phase III: impact control ex's beginning 2 foot to 2 foot, progressing from1 ft to the other and then 1 foot to same foot. POC: Follow R Hamstring repair per protocol of Dr. Kolby Locke (see notes section in documentation system). Phase III precautions: No pain during strength training, & post-activity soreness should resolve w/in 24 hrs. Assess phase II goals: good control of mvmt including step up/down, partial lunge (<60 deg's knee flex). Pt in phase III of protocol ( usually 3 months after surgery ). Add double and single leg balance & gait training.
--- NOTE | 2022-05-07 15:00 | PT.OTN ---
Current Diagnoses Strain of muscle, fascia and tendon of the posterior muscle group at thigh level, right thigh, initial encounter (05/15/22) Physical Therapy Treatment Note PT-OP-A Visit Information Start: 12/29/21 19:43 Freq: Status: Active Protocol: Document 05/07/22 13:11 NBM (Rec: 05/07/22 13:47 NBM [id number]) Out-Patient Physical Therapy Visit Information Visit Information Visit Type Treatment Note Visit Start Time 13:11 Visit Stop Time 13:45 Total Visit Minutes 34 Visit Number 29 Number of BRICK STACKER Visits 2 PT-OP-B Current Condition Start: 12/29/21 19:43 Freq: Status: Active Protocol: Document 01/04/22 13:01 LRN (Rec: 01/04/22 18:15 LRN [id number]) Current Condition History of Current Condition Onset Date 12/25/21 Current Complaints Impossible to get comfortable, not quite stable w/crutches. 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 Pt 10 days post op. Pt fall 09/05/21. Was carrying a heavy bin and slipped going up a step and both feet slipped off the step causing a lot of pain in the posterior thigh. Caused a lot of bruinsing and pain for 2 weeks after the fall. Kept walking for 6 weeks with his [place] and it didn't feel strong or stable; therefore sought further medical assessment. Was referred to [facility] for repair of tore R hamstring tendons off ischial tuberosity. 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 Prior Treatments and Tests Taking intermittently morphine /oxicodone, Tylenol, ASA for post-op blood thinning, Meloxicam as anti-inflammatory and Methylcarbonal (ms relaxor). Future Testing and Treatments Planned Next MD visit 01/09/22. Developmental History Developmental History Used crutches with knee replacement in 2013. Per pt, RLE PMH: meniscus tear - ACL in 1987, Meniscectomy in , Partial TKA 2008, TKA 2013. R Bunionectomy, R ankle tendon repair, 2 shoulder surgeries. Treatment Goals Patient/Caregiver Goals Pt goal is: Safely get to point to safely stand. Safely get through stage of healing to do strengthening at home of hamstrings. Balance standing with safety of hamstring tendon secure. Prior Functional Status Baseline Function- ADL's Needs Assist Baseline Function- Mobility Needs Assist Baseline Function- Gait Normal gait, no assistive device. 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 Baseline Function- Recreation/Hobbies 10 mile Hikes, coud drive 6 miles, general stiffness after driving long distances. Current Functional Impairments (Reported) Functional Limitations- ADL's Sitting tolerance - 1 minute before having to shift and move. Functional Limitations- Mobility/Gait Gait with crutches, NWBind RLE , wearing knee brace locked at 45 deg's flex. Functional Limitations- Work/School Retired. Functional Limitations- Recreation/ Not able to participate Hobbies Functional Limitations- Other Increased urination at nighttime (5 times per night). Personal Factors Other Personal Factors That May Effect Protocol limiting R Hip/knee Therapy/Recovery mobility & strengthening due to proper healing, R knee brace locked at 50 deg's flex for wks 0-6. Uncontrolled HBP PT-OP-C Subjective Start: 12/29/21 19:43 Freq: Status: Active Protocol: Document 05/07/22 13:11 NBM (Rec: 05/07/22 13:47 NB [id number]) OP-PT Subjective Patient Comments Patient Comments Pt states he wants to focus on strengthening and does not think his gait needs to be improved up. Pt states he has been walking every day at least 1-2 miles, and some of his HEP. His sleep has been kind of messed up. PT-OP-D Balance Start: 12/29/21 19:43 Freq: Status: Active Protocol: Document 04/19/22 13:47 LRN (Rec: 04/19/22 17:06 LRN [id number]) Balance Tests Single Limb Standing Single Limb- Right 30 secs Single Limb- Left 1 minute PT-OP-G Mobility & Gait Start: 12/29/21 19:43 Freq: Status: Active Protocol: Document 01/04/22 13:01 LRN (Rec: 01/04/22 18:21 LRN [id number]) OP Gait Assessment Gait Gait Assistance Required: Standby Assistance Distance (Feet) 100 Able to Maintain Weight Bearing Status Yes During Gait Assistive Devices Assistive Device Axillary Crutches Factors Limiting Gait Function Factors Limiting Gait Function Decreased Activity Tolerance, Incoordination,Poor Safety Awareness Comments Gait Comments Pt at time not very steady with gait but was able to self correct. PT-OP-J Posture/Palpation/Skin Start: 12/29/21 19:43 Freq: Status: Active Protocol: Document 02/05/22 13:52 LRN (Rec: 02/05/22 17:13 LRN [id number]) Skin Assessment Other Assessments Skin Assessment Comments Discoloration in the posteromedial and posterolateral aspect of the R knee/thigh from knee to distal 1/3 of thigh. No pain on palpation. PT-OP-K Range of Motion Start: 12/29/21 19:43 Freq: Status: Active Protocol: Document 04/02/22 13:52 LRN (Rec: 04/02/22 15:15 LRN [id number]) Knee Goniometric Range of Motion Knee Right Knee ROM WFL Yes Patient Position Supine Flexion Active (degrees) 130 Extension Active (degrees) 0 Left Knee ROM WFL Yes Patient Position Sitting Comments WNL PT-OP-M Strength Start: 12/29/21 19:43 Freq: Status: Active Protocol: Document 04/19/22 13:47 LRN (Rec: 04/19/22 17:06 LRN [id number]) Knee Strength Knee Manual Muscle Testing Right Flexion (S2) 4 Good Extension (L3) 5 Normal Comments Lateral hamstring strength is 4/5 Medial hamstring strength is 4 +/5 Left Flexion (S2) 5 Normal Extension (L3) 5 Normal PT-OP-Q Treatments Start: 12/29/21 19:43 Freq: Status: Active Protocol: Document 05/07/22 13:11 NBM (Rec: 05/07/22 13:47 NBM [id number]) Cardio Equipment Bicycle (Upright) Duration (Minutes) 7 Resistance 10 Seat Position 11 Therapeutic Exercises Sitting Exercises HS Stretch Side right Equipment Used mesh chair Comments cues for sustaining stretch long enough stool scoot Sitting Exercise Name fwd/bwd, laps Comments vc for heels apart, heel/toe Standing Exercises Lifting Standing Exercise Name Lifting training with equal WBing in LE's Side bilateral Knee flex Standing Exercise Name Knee flex - foot pointing in/ foot pointing out Side right Equipment Used 4# Reps/Minutes 10x each Comments cues for glute faciliation/ upright posture HS curls Standing Exercise Name Standing knee flex: Robe and conc/Ecc of med/lat HS Side right Reps/Minutes 10x 10 robe, 2 x 20 conc/ecc forward T Standing Exercise Name forward T>dynamic HS stretch Side bilateral Reps/Minutes 2x10 ft Comments cues for excessive hip rotation, improved self- correction modified Lunges Standing Exercise Name Walking lunges Side right Resistance AROM Reps/Minutes 3x5 Comments cued space between BLE, hips forward mini squat Standing Exercise Name <60 deg knee flexion - added to HEP Resistance AROM w/ no UE support Equipment Used mesh chair for sit-tap Reps/Minutes 2x10 reps Comments cued hip hinge, knee alignment , no hip rotation/knee drift inward Other Exercises 1/2 knee Iliopsoas stretch Other Exercise Name 1/2 kneel Iliopsoas Side right Reps/Minutes 1' PT-OP-R Modalities Start: 12/29/21 19:43 Freq: Status: Active Protocol: Document 03/23/22 12:17 HEMA (Rec: 04/08/22 19:42 [facility] [id number]) Hot Pack/Cold Pack Treatment Cold Pack Location R hamstrings Patient Position Supine Treatment Duration (minutes) 10 Patient Tolerance Good Comments lumbar cold pack to R HS in supine w/ strap and pillow support PT-OP-T Assessment and Plan Start: 12/29/21 19:43 Freq: Status: Active Protocol: Document 05/07/22 13:11 HEMA (Rec: 05/07/22 13:47 [facility] [id number]) Physical Therapy Assessment Goals Five Impairment Decreased Balance Impairment SLS 11 secs right, 60 secs left. (Arms crossed over chest, lift foot to opposite ankle - not touching). Short Term Goal (STG) RLE SLS 30 secs 04/02/22: 11 secs. 04/13/22: 60+ secs STG Duration 04/26/22 (04/13/22: MET GOAL) Manager Location Goal (LTG) R LE SLS 60 secs 04/13/22: 60+ secs LTG Duration 05/14/22 (04/13/22: MET GOAL) Four Impairment R Hamstring weakness Impairment Protocol: PROM of knee flexion only (strength 0/5). Short Term Goal (STG) Phase I: PROM R knee, no hip flexion during knee extension. Phase II: Pt able to tolerate beginning hamstring strengthening (avoiding lengthening of hamstring position (hip flex w/knee ext) ). Pt able to perform standing hip ext (knee straight), and robe/conc strengthening of hamstrings on HEP per protocol safely for pt to feel safe in standing. (02/05/22: Pt tolerates PROM of R knee with no hip flexion - no pain or discomfort). 02/09/22: Pt tolerates PROM of R knee with no hip flexion w/ out pain or discomfort 02/20/22: phase II, added mini lunge and squat at rail knee flexion ROM >60 deg. STG Duration 03/29/22 (04/02/22: MET GOAL) Manager Location Goal (LTG) Pt able to strengthen R hamstring in a lengthened hamstring position (per protocol) s/p wks 12-16 and will be able to balance standing with safety of hamstring tendon secure. 02/20/22: Education on Phase III not until 03/17/22. (04/02/22: SLS is 11 sec right , 1 minute left). 04/13/22: R SLS is 60+ secs LTG Duration 04/26/22 (04/13/22: MET GOAL ) Three Impairment Decreased Standing due to limited WBing in RLE Impairment Protocol limits standing to NWBing wks 0-2, TTWBing 2-6 wks. Short Term Goal (STG) Phase I: Pt will be able to walk with crutches and TTWBing through s/p wks 1-6. (01/23/22: Pt ambs with TTWBing and crutches) (02/02/22: End of week 6, pt ambs with TTWBing and crutches ). 02/09/22: End of week 7, pt ambs with TTWBing and crutches. STG Duration 02/15/22 (02/02/22: MET GOAL) Manager Location Goal (LTG) Per protocol: Phase II (wks 5 -12) Normal gait, Functional mvmts w/o unloading the RLE while demonstrating good control. SLS greater than 15 secs. Normal 5/5 R hamstring strength w/knee in 90 deg's flexion at least 4/5. Pt will be able to safely stand. (02/22/22: Pt ambulates without AD, wide gait deviations with gait). (04/02/22: Pt reports his gait is normal for him - met goal. R knee Hamstring strength is 4+/5 - met goal. Pt is able to safely stand and without assistive devices - met goal. Pt still unloading some weight off RLE with functional activities; therefore lacking control. RLE SLS is 11 secs) . (04/13/22: R SLS is 60+ secs. R Hamstring strength is 4+/5) (04/19/22: Shortened R step length & decreased pelvic rot presenting as antalgic gait - pt feels it is his normal, but was improved with training. Pt WBing R>L with lifting wgt from floor. SLS & R knee strength and standing safely goals met. LTG Duration 04/26/22 (04/02/22: Partially met goal) Two Impairment Decreased R knee PROM/AROM Impairment s/p wks 0-6: No active knee ROM Passive R knee flexion limited by brace to 30 deg's flexion. Per protocol: No active R knee ext with flexion of R hip. Short Term Goal (STG) Improve R knee PROM (without hip flex) per rehab protocol. (02/05/22: Passive R Knee ext without hip flexion is 0 deg's ) 02/09/22: Passive R Knee ext w/ out hip flexion is 0 deg 02/16/22: AROM R knee flex 105 deg. (04/02/22: Prone Active R knee flexion is 90 deg's) STG Duration 02/15/22 (04/02/22: MET GOAL) Manager Location Goal (LTG) Phase II for R knee: R knee 0 -30 deg's. (04/02/22: R knee AROM in supine is 0-130 deg's) LTG Duration 04/26/22 (04/02/22: MET GOAL) One Impairment Lacks Self care Impairment Pt under adherence to protocol Short Term Goal (STG) Pt has good understanding phase I-II of self shelter program per rehab protocol. STG Duration 03/29/22 (01/23/21: MET GOAL) Group Home Goal (LTG) Pt has good understanding and is independent in a phase III self shelter care program per rehab protocol. 02/20/22: education to adhere to not performing phase III activities until 03/17/22 then progress slowly for healing. LTG Duration 05/14/22 (04/02/22: Progressing) Assessment Summary Assessment Pt looks forward to discharge next visit w/ PT. Short session due to pt being late. Physical Therapy Plan Frequency and Duration Frequency of Treatment 2x/Week Duration of treatment (weeks) 4 Plan of Care Start Date 04/19/22 Plan of Care End Date 05/18/22 Next Visit Focus/Plan Next Note Type Treatment Note Next Visit Plan Review w/pt Phase III precaution. Achieve LTG #3 (Normal gait, Functional mvmts w/o unloading the RLE while demonstrating good control), Phase III: progress R hamstring strengthening in a lengthened hamstring positions, review ECC strengthening with single leg fwd leans, incorporate single leg bridge lowering, and assisted wgt training curls. Cardio: Bike, elliptical. Phase III: impact control ex's beginning 2 foot to 2 foot, progressing from1 ft to the other and then 1 foot to same foot. POC: Follow R Hamstring repair per protocol of Dr. Kolby Locke (see notes section in documentation system). Phase III precautions: No pain during strength training, & post-activity soreness should resolve w/in 24 hrs. Assess phase II goals: good control of mvmt including step up/down, partial lunge (<60 deg's knee flex). Pt in phase III of protocol ( usually 3 months after surgery ). Add double and single leg balance & gait training.
--- NOTE | 2022-05-15 18:26 | PT.OTN ---
Current Diagnoses Strain of muscle, fascia and tendon of the posterior muscle group at thigh level, right thigh, initial encounter (05/15/22) Physical Therapy Treatment Note PT-OP-A Visit Information Start: 12/29/21 19:43 Freq: Status: Active Protocol: Document 05/15/22 09:53 LRN (Rec: 05/15/22 12:32 LRN [id number]) Out-Patient Physical Therapy Visit Information Visit Information Visit Type Treatment Note Visit Start Time 09:54 Visit Stop Time 10:40 Total Visit Minutes 46 Visit Number 30 Evaluation Information Evaluation Date 01/04/22 Precautions Precautions PRECAUTIONS PHASE III: No pain during strength training. Post-activity soreness should resolve within 24 hours. PRECAUTIONS PHASE II: Avoid dynamic stretching, Avoid loading the hip at deep flexion angles, No impact or running. PT-OP-B Current Condition Start: 12/29/21 19:43 Freq: Status: Active Protocol: Document 01/04/22 13:01 LRN (Rec: 01/04/22 18:15 LRN [id number]) Current Condition History of Current Condition Onset Date 12/25/21 Current Complaints Impossible to get comfortable, not quite stable w/crutches. 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 Pt 10 days post op. Pt fall 09/05/21. Was carrying a heavy bin and slipped going up a step and both feet slipped off the step causing a lot of pain in the posterior thigh. Caused a lot of bruinsing and pain for 2 weeks after the fall. Kept walking for 6 weeks with his [place] and it didn't feel strong or stable; therefore sought further medical assessment. Was referred to [facility] for repair of tore R hamstring tendons off ischial tuberosity. 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 Prior Treatments and Tests Taking intermittently morphine /oxicodone, Tylenol, ASA for post-op blood thinning, Meloxicam as anti-inflammatory and Methylcarbonal (ms relaxor). Future Testing and Treatments Planned Next MD visit 01/09/22. Developmental History Developmental History Used crutches with knee replacement in 2013. Per pt, RLE PMH: meniscus tear - ACL in 1987, Meniscectomy in , Partial TKA 2008, TKA 2013. R Bunionectomy, R ankle tendon repair, 2 shoulder surgeries. Treatment Goals Patient/Caregiver Goals Pt goal is: Safely get to point to safely stand. Safely get through stage of healing to do strengthening at home of hamstrings. Balance standing with safety of hamstring tendon secure. Prior Functional Status Baseline Function- ADL's Needs Assist Baseline Function- Mobility Needs Assist Baseline Function- Gait Normal gait, no assistive device. 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 Baseline Function- Recreation/Hobbies 10 mile Hikes, coud drive 6 miles, general stiffness after driving long distances. Current Functional Impairments (Reported) Functional Limitations- ADL's Sitting tolerance - 1 minute before having to shift and move. Functional Limitations- Mobility/Gait Gait with crutches, NWBind RLE , wearing knee brace locked at 45 deg's flex. Functional Limitations- Work/School Retired. Functional Limitations- Recreation/ Not able to participate Hobbies Functional Limitations- Other Increased urination at nighttime (5 times per night). Personal Factors Other Personal Factors That May Effect Protocol limiting R Hip/knee Therapy/Recovery mobility & strengthening due to proper healing, R knee brace locked at 50 deg's flex for wks 0-6. Uncontrolled HBP PT-OP-C Subjective Start: 12/29/21 19:43 Freq: Status: Active Protocol: Document 05/15/22 09:53 LRN (Rec: 05/15/22 12:32 LRN [id number]) OP-PT Subjective Patient Comments Patient Comments States he was crawling around on concrete for 2-3 hours, so he has been having problems with the R knee. It has been giving out on him. Feels the knee pain when straightening out the knee. Patient Questionnaires Lower Extremity Functional Scale LEFS Score 66 LEFS Impairment 1 to 19% Impaired (Score 63-79 ) OP-PT Pain Assessment Pain Assessment Grid Paper Pain Assessment Grid Completed Yes Location R knee Pain Location Details R lateral and anterior/ inferior to knee joint Intensity 4 Scale Used Numeric (0 - 10) Description Sharp Description- Other Occasional pain. Ant knee pain inconsistently with movement/walking Posterior R thigh Pain Location Details Posterior R thigh Intensity 2 Scale Used Numeric (0 - 10) Description- Other Mild pain/tightness with fatigue PT-OP-D Balance Start: 12/29/21 19:43 Freq: Status: Active Protocol: Document 04/19/22 13:47 LRN (Rec: 04/19/22 17:06 LRN [id number]) Balance Tests Single Limb Standing Single Limb- Right 30 secs Single Limb- Left 1 minute PT-OP-G Mobility & Gait Start: 12/29/21 19:43 Freq: Status: Active Protocol: Document 01/04/22 13:01 LRN (Rec: 01/04/22 18:21 LRN [id number]) OP Gait Assessment Gait Gait Assistance Required: Standby Assistance Distance (Feet) 100 Able to Maintain Weight Bearing Status Yes During Gait Assistive Devices Assistive Device Axillary Crutches Factors Limiting Gait Function Factors Limiting Gait Function Decreased Activity Tolerance, Incoordination,Poor Safety Awareness Comments Gait Comments Pt at time not very steady with gait but was able to self correct. PT-OP-J Posture/Palpation/Skin Start: 12/29/21 19:43 Freq: Status: Active Protocol: Document 02/05/22 13:52 LRN (Rec: 02/05/22 17:13 LRN [id number]) Skin Assessment Other Assessments Skin Assessment Comments Discoloration in the posteromedial and posterolateral aspect of the R knee/thigh from knee to distal 1/3 of thigh. No pain on palpation. PT-OP-K Range of Motion Start: 12/29/21 19:43 Freq: Status: Active Protocol: Document 04/02/22 13:52 LRN (Rec: 04/02/22 15:15 LRN [id number]) Knee Goniometric Range of Motion Knee Right Knee ROM WFL Yes Patient Position Supine Flexion Active (degrees) 130 Extension Active (degrees) 0 Left Knee ROM WFL Yes Patient Position Sitting Comments WNL PT-OP-M Strength Start: 12/29/21 19:43 Freq: Status: Active Protocol: Document 04/19/22 13:47 LRN (Rec: 04/19/22 17:06 LRN [id number]) Knee Strength Knee Manual Muscle Testing Right Flexion (S2) 4 Good Extension (L3) 5 Normal Comments Lateral hamstring strength is 4/5 Medial hamstring strength is 4 +/5 Left Flexion (S2) 5 Normal Extension (L3) 5 Normal PT-OP-Q Treatments Start: 12/29/21 19:43 Freq: Status: Active Protocol: Document 05/15/22 09:53 LRN (Rec: 05/15/22 12:32 LRN [id number]) Cardio Equipment Bicycle (Upright) Duration (Minutes) 4 Resistance 3 Seat Position 11 Therapeutic Exercises Supine Exercises SLR Supine Exercise Name SLR Side right Equipment Used 5# Reps/Minutes 15 x Prone Exercises Hip Ext Prone Exercise Name Hip Ext Side right Equipment Used 0# Reps/Minutes 15x Knee flex Prone Exercise Name Knee flex Side right Reps/Minutes 15x 2 Comments Tried with1# wgt, but DC's due to pain. Sidelying Exercises Hip AD Sidelying Exercise Name Hip AD (opp foot behind R LE) Side right Reps/Minutes 15x Hip AB Sidelying Exercise Name Hip AB Side right Equipment Used 5# Reps/Minutes 15x 2 Other Exercises Gait speed Other Exercise Name Gait speed Comments Speed 20'/3 and normal gait 10'/5 Neuro Re-Education Treatment Balance Activities single leg balance Details SLS bilaterally Surface Level Reps/Duration 3' Self-Care/Home Management Treatment Activities Self-Care/Home Management Activities Reviewed pt in phase III of protocol. Reviewed continued R knee strengthening without knee pain. I/s pt in increased use of cryotherapy for pain management, especially with new onset of knee pain. Discussed not running. Noted pt to progress hip strengthening to improve knee stability with onset of his new knee pain. Noted to pt weakness of hip ext and knee flexion for progression. PT-OP-R Modalities Start: 12/29/21 19:43 Freq: Status: Active Protocol: Document 03/23/22 12:17 NBM (Rec: 04/08/22 19:42 [facility] [id number]) Hot Pack/Cold Pack Treatment Cold Pack Location R hamstrings Patient Position Supine Treatment Duration (minutes) 10 Patient Tolerance Good Comments lumbar cold pack to R HS in supine w/ strap and pillow support PT-OP-T Assessment and Plan Start: 12/29/21 19:43 Freq: Status: Active Protocol: Document 05/15/22 09:53 LRN (Rec: 05/15/22 12:32 LRN [id number]) Physical Therapy Assessment Goals Five Impairment Decreased Balance Impairment SLS 11 secs right, 60 secs left. (Arms crossed over chest, lift foot to opposite ankle - not touching). Short Term Goal (STG) RLE SLS 30 secs 04/02/22: 11 secs. 04/13/22: 60+ secs STG Duration 04/26/22 (04/13/22: MET GOAL) Ict Help Desk Officer Goal (LTG) R LE SLS 60 secs 04/13/22: 60+ secs LTG Duration 05/14/22 (04/13/22: MET GOAL) Four Impairment R Hamstring weakness Impairment Protocol: PROM of knee flexion only (strength 0/5). Short Term Goal (STG) Phase I: PROM R knee, no hip flexion during knee extension. Phase II: Pt able to tolerate beginning hamstring strengthening (avoiding lengthening of hamstring position (hip flex w/knee ext) ). Pt able to perform standing hip ext (knee straight), and preeti/conc strengthening of hamstrings on HEP per protocol safely for pt to feel safe in standing. (02/05/22: Pt tolerates PROM of R knee with no hip flexion - no pain or discomfort). 02/09/22: Pt tolerates PROM of R knee with no hip flexion w/ out pain or discomfort 02/20/22: phase II, added mini lunge and squat at rail knee flexion ROM >60 deg. STG Duration 03/29/22 (04/02/22: MET GOAL) Custodial Goal (LTG) Pt able to strengthen R hamstring in a lengthened hamstring position (per protocol) s/p wks 12-16 and will be able to balance standing with safety of hamstring tendon secure. 02/20/22: Education on Phase III not until 03/17/22. (04/02/22: SLS is 11 sec right , 1 minute left). 04/13/22: R SLS is 60+ secs LTG Duration 04/26/22 (04/13/22: MET GOAL ) Three Impairment Decreased Standing due to limited WBing in RLE Impairment Protocol limits standing to NWBing wks 0-2, TTWBing 2-6 wks. Short Term Goal (STG) Phase I: Pt will be able to walk with crutches and TTWBing through s/p wks 1-6. (01/23/22: Pt ambs with TTWBing and crutches) (02/02/22: End of week 6, pt ambs with TTWBing and crutches ). (02/09/22: End of week 7, pt ambs with TTWBing and crutches ). STG Duration 02/15/22 (02/02/22: MET GOAL) Custodial Goal (LTG) Per protocol: Phase II (wks 5 -12) Normal gait, Functional mvmts w/o unloading the RLE while demonstrating good control. SLS greater than 15 secs. Normal 5/5 R hamstring strength w/knee in 90 deg's flexion at least 4/5. Pt will be able to safely stand. (02/22/22: Pt ambulates without AD, wide gait deviations with gait). (04/02/22: Pt reports his gait is normal for him - met goal. R knee Hamstring strength is 4+/5 - met goal. Pt is able to safely stand and without assistive devices - met goal. Pt still unloading some weight off RLE with functional activities; therefore lacking control. RLE SLS is 11 secs) . (04/13/22: R SLS is 60+ secs. R Hamstring strength is 4+/5) (04/19/22: Shortened R step length & decreased pelvic rot presenting as antalgic gait - pt feels it is his normal, but was improved with training. Pt WBing R>L with lifting wgt from floor. SLS & R knee strength and standing safely goals met. (05/15/22: R SLS is 50 secs, L SLS 60+ secs, not able to assess Hamstring strength due to new knee pain) LTG Duration 04/26/22 (05/15/22: Partially met goal, pt hamstring strength 4-4+/5. ) Two Impairment Decreased R knee PROM/AROM Impairment s/p wks 0-6: No active knee ROM Passive R knee flexion limited by brace to 30 deg's flexion. Per protocol: No active R knee ext with flexion of R hip. Short Term Goal (STG) Improve R knee PROM (without hip flex) per rehab protocol. (02/05/22: Passive R Knee ext without hip flexion is 0 deg's ) 02/09/22: Passive R Knee ext w/ out hip flexion is 0 deg 02/16/22: AROM R knee flex 105 deg. (04/02/22: Prone Active R knee flexion is 90 deg's) STG Duration 02/15/22 (04/02/22: MET GOAL) Custodial Goal (LTG) Phase II for R knee: R knee 0 -30 deg's. (04/02/22: R knee AROM in supine is 0-130 deg's) LTG Duration 04/26/22 (04/02/22: MET GOAL) One Impairment Lacks Self care Impairment Pt under adherence to protocol Short Term Goal (STG) Pt has good understanding phase I-II of self senior living program per rehab protocol. STG Duration 03/29/22 (01/23/21: MET GOAL) Ict Help Desk Officer Goal (LTG) Pt has good understanding and is independent in a phase III self senior living care program per rehab protocol. 02/20/22: education to adhere to not performing phase III activities until 03/17/22 then progress slowly for healing. 05/15/22: Pt feels he has knowledge needed for continued strengthening and is ready to be placed on a HEP. LTG Duration 05/14/22 (05/15/22: MET GOAL ) Assessment Summary Assessment Pt is s/p 19.5 weeks R Hamstring repair. Pt is having new onset of Lateral R knee pain following an episode of crawling around on concrete for ~1.5 hrs in crawl space. Pt's pain has been continuous but is now intermittently sharp. Pt noting weakness in R quadriceps but doesn't seem as concerned with his hamstring weakness. He is concerned of swelling behind his R knee, but has no complaints of pain. Pt has had c/o swelling behind his knee since 04/02/22 (14 wks post op). Today pt didn't tolerate R knee strength assessment due to new onset of pain. Prior assessment showed Lateral hamstring strength 4/5, Medial hamstring strength 4+/5. The pt shows good balance on his RLE with SLS of 50 secs (L is 60+ secs). The pt is choosing to discharge from therapy as he feels he understands what he should be doing with strengthening. The pt did not complete in Phase III: impact control ex's beginning 2 foot to 2 foot, progressing from1 ft to the other and then 1 foot to same foot and he could benefit from progressive R hamstring strengthening in lengthened hamstring positions. I have concerns the pt may be too aggressive with strengthening on his own, but the pt feels he is ready to be discharged to a HEP; therefore the pt is being discharged today to his [facility]. Physical Therapy Plan Discharge Physical Therapy Discharge Reasons Patient Request Discharge Comments Pt has met most goals. See assessment above. Thank you for your referral.
== END 2022-05-17 14:34 | disposition home or self-care (01) ==
LOC: PHYS 09:45
PROVIDERS: Family Provider Internal Medicine; PCP Internal Medicine; Referring Provider Orthopaedic Surgery Sports Medicine; Visit Provider Orthopaedic Surgery Sports Medicine
DX: S76.311A Strain of muscle, fascia and tendon of the posterior muscle group at thigh level, right thigh, initial encounter (principal)
CPT/HCPCS: 97110; 97112; 97116; 97140; 97162; 97535

== ENCOUNTER → 2022-08-16 10:22 | Outpatient (CLI) | payer OTHER, SELFPAY ==
[2022-08-16 10:52] LABS: UR Morphine/Opiate cutoff 300 Negative (Negative); Ur Creatinine Normal (Normal); Ur Specific Gravity Normal (Normal); Urine Amphetamines Negative (Negative); Urine Barbiturates Negative (Negative); Urine Benzodiazepines Negative (Negative); Urine Cocaine Negative (Negative); Urine MDMA Negative (Negative); Urine Methadone Negative (Negative); Urine Methamphetamines Negative (Negative); Urine Oxycodone Negative (Negative); Urine Phencyclidine Negative (Negative); Urine Tetrahydrocannabinol Negative (Negative); Urine Tricyclic Antidepressant Negative (Negative); Urine pH Normal (Normal)
== END ==
PROVIDERS: Family Provider Internal Medicine; PCP Internal Medicine; Referring Provider Internal Medicine; Visit Provider Internal Medicine
DX: F19.10 Other psychoactive substance abuse, uncomplicated (principal)
CPT/HCPCS: 80305

== ENCOUNTER → 2022-08-18 15:06 | Outpatient (CLI) | payer OTHER, SELFPAY ==
[2022-08-26 21:47] LABS: Normetanephrine Total 798 ug/24 hr (156-729); Urine, Metanephrine 221 ug/L (Undefined); Urine, Normetanephrine 614 ug/L (Undefined)
== END ==
PROVIDERS: Family Provider Internal Medicine; PCP Internal Medicine; Referring Provider Internal Medicine; Visit Provider Internal Medicine
DX: I10 Essential (primary) hypertension (principal)
CPT/HCPCS: 83835

== ENCOUNTER → 2022-08-21 15:02 | Outpatient (CLI) | payer OTHER, SELFPAY ==
[2022-08-21 15:45] LABS: Hematocrit 39.7 % (41-53); Hemoglobin 13.5 g/dL (13.5-17.5); Mean Corpuscular HGB Conc 33.9 % (30-36); Mean Corpuscular Hemoglobin 28.6 PG (26-34); Mean Corpuscular Volume 84.2 fL (80-100); Platelet Count 183 X10^3/uL (150-400); Red Blood Cell Count 4.72 X10^6/uL (4.5-5.9); Red Cell Distribution Width 14.4 % (11.6-14.8)
[2022-08-21 15:58] LABS: Alanine Aminotransferase 26 IU/L (<50); Albumin 4.1 g/dL (3.5-5.0); Albumin Globulin Ratio 1.6 (1.0-2.8); Alkaline Phosphatase 56 U/L (38-126); Aspartate Aminotransferase 24 IU/L (17-59); BUN Creatinine Ratio 20.2 (6-22); Bilirubin Total 0.8 mg/dL (0.2-1.3); Blood Urea Nitrogen 17 mg/dL (9-20); Carbon Dioxide 27 mmol/L (22-32); Chloride 99 mmol/L (98-107); Cholesterol 130 mg/dL (140-199); Estimated Glomerular Filt Rate > 60 mL/min (>60); Globulin 2.6 g/dL (1.7-4.1); Glucose 89 mg/dL (80-110); HDL Cholesterol 47 mg/dL (40-60); HEMOLYSIS < 15 (0-50); LDL Cholesterol Calculated 66 mg/dL (<100); Potassium 3.9 mmol/L (3.4-5.1); Sodium 137 mmol/L (137-145); Total Protein 6.7 g/dL (6.3-8.2); Triglycerides 84 mg/dL (35-150)
[2022-08-21 16:27] LABS: TSH w/ Reflex to FT4 1.78 uIU/mL (0.47-4.68)
== END ==
PROVIDERS: Family Provider Internal Medicine; PCP Internal Medicine; Referring Provider Internal Medicine; Visit Provider Internal Medicine
DX: E78.2 Mixed hyperlipidemia (principal); I10 Essential (primary) hypertension; I48.3 Typical atrial flutter
CPT/HCPCS: 36415; 80053; 80061; 84443; 85027

== ENCOUNTER → 2022-09-03 06:59 | Outpatient (CLI) | payer OTHER, SELFPAY ==
--- NOTE | 2022-09-03 07:00 | DI.ECHO.S_ITS ---
[place] [facility] +---------+ Hospital +---------+ : : [address] : : : : [id number] : : : : Phone: [phone]+ Echocardiogram Report + + :Name: FERN OSHEA Study Date: 09/03/2022 Height: 72 in : :[facility] ReadingLocation: Weight: 180 lb : : Gender: Male BSA: 2.0 m2 : :: 1960 Age: 62 yrs BP: 150/92 mmHg: :Reason For Study: ATRIAL FLUTTER : :Ordering Physician: MP, : :JOS Performed By: ALLEN CASTELLANOS : :Referring: JOS GRESHAM : + + Interpretation Summary Limited study. Mild concentric left ventricular hypertrophy with ejection fraction 55-60%. The left atrium is severely dilated. The right atrium is moderate to severely dilated. Comparison is made with the echocardiogram of 07/29/2019, LV wall thickness has increased. Procedure: Images were not obtained from all of the standard acoustic windows due to the limited scope of the study. Comparison is made with the echocardiogram of 07/29/2019. The heart rate ranged between 55-62 bpm during the study. Left Ventricle: The left ventricle is normal in size. There is mild concentric left ventricular hypertrophy. The ejection fraction is estimated to be 55-60%. There are no focal wall motion abnormalities. Right Ventricle: The right ventricular systolic function is normal. Atria: The left atrium is severely dilated. The right atrium is moderate to severely dilated. Pericardium/ Pleura There is no pericardial effusion. There is no pleural effusion. MMode/2D Measurements & Calculations LVIDd: 4.6 cm LA A2 area: 33.6 cm2 LVIDs: 3.1 cm LA A4 area: 27.9 cm2 FS: 32.7 % LA length (vol): 6.5 cm IVSd: 1.2 cm LA vol: 123.2 ml LVPWd: 1.0 cm LA vol index: 60.5 ml/m2 LV ochoa. diameter/BSA (cm/m^2): 2.3 LV sys. diameter/BSA (cm/m^2): 1.5 RA long axis: 6.8 cm TAPSE: 2.1 cm RA area: 26.3 cm2 RA vol: 86.2 ml RA : 42.3 ml/m2 Electronically signed by: Chris Heredia on Reading Physician:09/03/2022 08:46 AM
== END ==
PROVIDERS: Family Provider Internal Medicine; PCP Internal Medicine; Referring Provider Internal Medicine; Visit Provider Internal Medicine
DX: I48.92 Unspecified atrial flutter (principal)
CPT/HCPCS: 93307

== ENCOUNTER → 2023-10-29 16:57 | Outpatient (CLI) | payer MEDICARE, OTHER, SELFPAY ==
[2023-10-29 18:19] LABS: Hematocrit 38.7 % (41-53); Hemoglobin 12.6 g/dL (13.5-17.5); Mean Corpuscular HGB Conc 32.6 % (30-36); Mean Corpuscular Hemoglobin 27.8 PG (26-34); Mean Corpuscular Volume 85.2 fL (80-100); Platelet Count 208 X10^3/uL (150-400); Red Blood Cell Count 4.54 X10^6/uL (4.5-5.9); Red Cell Distribution Width 12.9 % (11.6-14.8); White Blood Cell Count 5.8 X10^3/uL (4.5-11.0)
[2023-10-29 19:25] LABS: Alanine Aminotransferase 48 IU/L (<50); Albumin 3.7 g/dL (3.5-5.0); Albumin Globulin Ratio 1.6 (1.0-2.8); Alkaline Phosphatase 55 U/L (38-126); Aspartate Aminotransferase 28 IU/L (17-59); Bilirubin Total 0.5 mg/dL (0.2-1.3); Blood Urea Nitrogen 18 mg/dL (9-20); Calcium 9.1 mg/dL (8.4-10.2); Carbon Dioxide 27 mmol/L (22-32); Chloride 107 mmol/L (98-107); Cholesterol 106 mg/dL (140-199); Estimated Glomerular Filt Rate > 60 mL/min (>60); Globulin 2.3 g/dL (1.7-4.1); Glucose 105 mg/dL (80-110); HDL Cholesterol 42 mg/dL (40-60); HEMOLYSIS < 15 (0-50); LDL Cholesterol Calculated 44 mg/dL (<100); Sodium 138 mmol/L (137-145); Triglycerides 98 mg/dL (35-150)
[2023-10-29 19:52] LABS: Prostate Specific Antigen 0.685 ng/mL (0.10-4.00)
== END ==
PROVIDERS: Family Provider Internal Medicine; PCP Internal Medicine; Referring Provider Internal Medicine; Visit Provider Internal Medicine
DX: E78.2 Mixed hyperlipidemia (principal); N40.1 Benign prostatic hyperplasia with lower urinary tract symptoms; I10 Essential (primary) hypertension; N13.8 Other obstructive and reflux uropathy
CPT/HCPCS: 36415; 80053; 80061; 84153; 85027

== ENCOUNTER → 2025-01-07 13:57 | Outpatient (CLI) | payer MEDICARE, OTHER, SELFPAY ==
[2025-01-07 14:27] LABS: Hematocrit 42.6 % (41-53); Hemoglobin 13.9 g/dL (13.5-17.5); Mean Corpuscular HGB Conc 32.7 % (30-36); Mean Corpuscular Hemoglobin 28.6 PG (26-34); Mean Corpuscular Volume 87.5 fL (80-100); Platelet Count 183 X10^3/uL (150-400)
[2025-01-07 14:44] LABS: Alanine Aminotransferase 23 IU/L (<50); Albumin 4.4 g/dL (3.5-5.0); Albumin Globulin Ratio 1.8 (1.0-2.8); Alkaline Phosphatase 50 U/L (38-126); Blood Urea Nitrogen 17 mg/dL (9-20); Calcium 9.1 mg/dL (8.4-10.2); Carbon Dioxide 28 mmol/L (22-32); Chloride 108 mmol/L (98-107); Cholesterol 139 mg/dL (140-199); Estimated Glomerular Filt Rate > 60 mL/min (>60); Globulin 2.4 g/dL (1.7-4.1); Glucose 87 mg/dL (70-99); HDL Cholesterol 52 mg/dL (40-60); HEMOLYSIS < 15 (0-50); Potassium 4.1 mmol/L (3.4-5.1); Sodium 142 mmol/L (137-145); Total Protein 6.8 g/dL (6.3-8.2); Triglycerides 65 mg/dL (35-150)
[2025-01-07 15:13] LABS: Prostate Specific Antigen 0.818 ng/mL (0.10-4.00)
[2025-01-07 15:14] LABS: TSH w/ Reflex to FT4 2.10 uIU/mL (0.47-4.68)
== END ==
PROVIDERS: Family Provider Internal Medicine; PCP Internal Medicine; Referring Provider Internal Medicine; Visit Provider Internal Medicine
DX: I48.3 Typical atrial flutter (principal); E78.2 Mixed hyperlipidemia; N40.1 Benign prostatic hyperplasia with lower urinary tract symptoms; N13.8 Other obstructive and reflux uropathy
CPT/HCPCS: 36415; 80053; 80061; 84153; 84443; 85027